=== PATIENT | female | born 1985 | race Two or more races ===

== ENCOUNTER → 2020-07-20 09:35 | Outpatient (BNVA) | payer OTHER, SELFPAY | PROVIDERS: PCP Internal Medicine; Visit Provider Anesthesiology | DX: M54.2 Cervicalgia (principal); M79.18 Myalgia, other site; M46.1 Sacroiliitis, not elsewhere classified | CPT/HCPCS: 99202 ==

== ENCOUNTER 2020-07-24 11:00 | Outpatient (RCR) | payer OTHER, SELFPAY ==
--- NOTE | 2020-06-21 13:41 | MHC.PT.EP ---
[facility] [place] Office [place] Office [place] Office [address] Agnes Muse [address] [phone] F: [phone] F: [phone] F: [phone] F: [phone] Physical Therapy Plan of Care Date of Evaluation: 06/21/20 Date of Surgery: N/A Diagnosis: lumbar degenerative disc disease Assessment: pt presents to physical therapy with pain, decreased range of motion, decreased strength, impaired functional mobility, impaired postural awareness, and gait deviations. pt is a good candidate for skilled PT due to age, potential remediation of impairments, typical disease/condition progression and prognosis, comorbidities, and motivation. pt would benefit from tailored strengthening and stretching exercise program, functional training, gait training, postural re-training, neuromuscular re-education, and modalities as needed for pain. Frequency and Duration: The patient will be seen 2x/wk for 4 wks Short Term Goals: pt will be I w/ HEP to promote self-management of condition. pt will demo proper sitting posture w/ lumbar roll to promote neutral spine. Car Porter Goals: pt will report <1/10 low back pain w/ standing for >30 minutes to facilitate return to PLOF. pt will report statistically significant improvement in self-reported outcome measure, Pallavi, to facilitate return to PLOF. Treatment Plan: Modalities to reduce pain, spasms and effusion. Manual therapy to restore motion and function. Therapeutic exercise to improve strength and flexibility. Neuromuscular re-education for posture and balance. Therapeutic activities to return to functional activities of daily living. Please sign and return to therapist. Thank you for your referral.
--- NOTE | 2020-07-24 11:43 | MHC.PT.DC ---
[facility] [place] Office [place] Office [place] Office [address] Agnes Muse [address] [phone] F: [phone] F: [phone] F: [phone] F: [phone] Physical Therapy Discharge Report Diagnosis: lumbar degenerative disc disease Date of Surgery: N/A Date of Evaluation: 06/21/20 Date of Discharge: 07/24/20 Treatments to Date: 9 Cancellations to Date: 2 No Shows to Date: 0 Discharge Status: Patient Elected to Stop Recommend MD Follow-up Discharge Summary: Despite several visits of the patient responding to repeated extensions she continues to return with level 6-7/10 pain localized to lumbar spine. She stated she has been compliant with her extensions but continues to have the pain return. I spoke with the patient and explained she has three more visits approved by insurance but she stated she wants to discharge to her home exercise program at this time. The session was spent reviewing her home exercise program. She was given an updated list of exercises to perform at home. She has the appropriate therabands to perform her exercises. The patient is discharged from this physical therapy plan of care. Electronically signed by: Dorene Robles PT, DPT Please sign and return to therapist. Thank you for your referral.
== END 2020-07-24 11:43 | disposition other institution (70) ==
LOC: HO.PT 11:00
PROVIDERS: PCP Internal Medicine; Visit Provider Internal Medicine
DX: M51.36 Other intervertebral disc degeneration, lumbar region (principal)
CPT/HCPCS: 97110; 97112; 97140; 97161

== ENCOUNTER 2020-09-28 13:54 | Outpatient (REF) | payer OTHER, SELFPAY ==
[2020-09-29 10:01] LABS: BV Int Neg Control Negative (Negative); BV Int Pos Control Positive (Positive)
[2020-09-29 20:02] LABS: C. trachomatis RNA TMA NOT DETECTED (NOT DETECTED); N. gonorrhoeae RNA TMA NOT DETECTED (NOT DETECTED)
== END 2020-09-28 13:55 | disposition home or self-care (01) ==
LOC: HO.LAB 13:54
PROVIDERS: PCP Family Medicine; Visit Provider Advanced Practice Midwife
DX: N76.0 Acute vaginitis (principal); R10.2 Pelvic and perineal pain; Z11.3 Encounter for screening for infections with a predominantly sexual mode of transmission; Z11.8 Encounter for screening for other infectious and parasitic diseases
CPT/HCPCS: 36415; 81003; 87480; 87491; 87510; 87591; 87660; 99212

== ENCOUNTER 2020-10-13 08:06 | Day surgery (SDC) | payer OTHER, SELFPAY ==
[2020-10-09 13:25] VITALS: BMI 31.1
--- NOTE | 2020-10-12 13:49 | P.CONAN_ITS ---
Documented by User: Kait Vargas 10/12/20 13:50 HPI - Anesthesia Eval Consult details Narrative: 35yo F Right Sacroiliac Joint Steroid Injection PMFSH Active Problems Active Problems: All Active Problems (Updated 09/28/20 @ 14:18 by Savi Prado) Acute vaginitis (Acute) Pelvic pain in female (Acute) Potential exposure to STD (Acute) Sacroiliitis (Acute) Myofascial pain syndrome, cervical (Acute) Cervicalgia (Acute) Past Medical History Medical History Cervicalgia Dyspepsia Myofascial pain syndrome, cervical Sacroiliitis Family History Family History Father Diabetes mellitus HTN (hypertension) Surgical History Surgical History History of 2 sections Hx of bilateral breast reduction surgery Hx of tubal ligation Social History Social History Smoking Status: Never smoker Use of substances other than those prescribed or required for medical reasons: No Have you been hit, kicked, punched, or otherwise hurt by someone within the past year? If so, by whom?: No Advance Directives: No Advance Directives Information Provided: No Advance Directives on File: No Recently lost weight without trying: No Meds Allergies Allergy/AdvReac Type Severity Reaction Status Date / Time No Known Allergies Allergy Verified 10/09/20 13:17 [No Known Allergies*] Home Medications Medication Instructions Recorded Confirmed Last Taken Type ibuprofen 600 mg PO Q8H PRN 10/09/20 10/09/20 Unknown History pantoprazole 1 tab PO DAILY 10/09/20 10/09/20 Unknown History Exam Exam Date and Time: October 12, 2020 1349 Height,Weight and Vital Signs: Height 5 ft 1 in Weight 74.843 kg Assessment and Plan Assessment Anesthesia Assessment: Chart Reviewed Documented by User: Mauricio Mcfarlane MD 10/13/20 09:34 [facility] Past Medical History Medical History Cervicalgia Dyspepsia Myofascial pain syndrome, cervical Sacroiliitis Family History Family History Father Diabetes mellitus HTN (hypertension) Surgical History Surgical History History of 2 sections Hx of bilateral breast reduction surgery Hx of tubal ligation Social History Social History Smoking Status: Never smoker Use of substances other than those prescribed or required for medical reasons: No Have you been hit, kicked, punched, or otherwise hurt by someone within the past year? If so, by whom?: No Advance Directives: No Advance Directives Information Provided: No Advance Directives on File: No Recently lost weight without trying: No Meds Allergies Allergy/AdvReac Type Severity Reaction Status Date / Time No Known Allergies Allergy Verified 10/09/20 13:17 [No Known Allergies*] Home Medications Medication Instructions Recorded Confirmed Last Taken Type ibuprofen 600 mg PO Q8H PRN 10/09/20 10/09/20 Unknown History pantoprazole 1 tab PO DAILY 10/09/20 10/09/20 Unknown History Exam Airway Mallampati Class: I TM Dist: >3cm Neck ROM: Full Denture: Upper and Lower Loose/Missing/Broken Teeth: No Heart: RRR Lungs: NL Assessment and Plan Assessment Anesthesia Assessment: Anesthesia Plan Discussed and Chart Reviewed Final Anesthetic Review NPO: Yes ASA Class: III Final Preanesthetic Review: No Changes in Pt Med Stat, Meds/Allgs Chart Reviewed, Consent Obtained/Reviewed and Anes Risks/Benef Reviewed Patient Risk: Intermediate Procedure Risk: Low Anesthetic Plan Anesthetic Plan: MAC: Disposition: Standard PACU
--- NOTE | ~2020-10-13 | FL_ITS ---
EXAMINATION: XR FLUOROSCOPY WITH IMAGES CLINICAL INFORMATION: Right sacroiliac joint injection COMPARISON: None. TECHNIQUE: Fluoroscopy performed by Dr. Hilario Monroy. Fluoroscopy time: 0.4 minutes DAP: 2 mGycm2 Images: 2 FINDINGS: Images demonstrate needle placement and contrast injection over the inferior right sacroiliac joint. FL/FL guidance in OR IMPRESSION: Fluoroscopic guidance for right sacroiliac joint injection.
[2020-10-13 09:13] VITALS: BP 105/65; PULSE 82; RESP 16; TEMP 36.9; O2SAT 98
--- NOTE | 2020-10-13 09:20 | MHC.SHP ---
Pre-Procedural Eval Section A The patient is an INPATIENT: No Changes since office visit: Yes Patient answered all questions The History & Physical has been completed within 30 days and I have reviewed it.: No Section B Chief Complaint: sacroiliitis Details of Present Illness: as above Relevant Family History (Specify if Yes): No Relevant Social History: None Present Medications: see Short Stay Collaborative assessment Medical History: No relevant PMH History of Previous Operations: No relevant previous surgery Allergies: Allergies Allergy/AdvReac Type Severity Reaction Status Date / Time No Known Allergies Allergy Verified 10/09/20 13:17 [No Known Allergies*] Review of Systems Sugical H&P ROS: Negative: Constitution, Cardiovascular, Respiratory, Neurological, Psychiatric, Hem-Onc, Allergic/Immunologic, Gastrointestinal, Genitourinary, Musculoskeletal, Integumentary, Endocrine and Eyes/Ears/Nose/Throat Exam Surgical H&P Exam: Normal: HEENT, Normal: Heart, Normal: Lungs, Normal: Extremities, Normal: Abdomen, Normal: Skin and Normal: Neurological Plan Diagnosis/Plan: Unchanged I have reviewed the history and physical and performed a pertinent physical examination on my patient. No changes have occurred unless specified.
[2020-10-13] MEDS: Lactated Ringers 1,000 ML 100 ML IVCONT (09:30)
[2020-10-13 10:12] VITALS: BP 108/63; PULSE 84; RESP 16; TEMP 36.6; O2SAT 100
--- NOTE | 2020-10-13 10:12 | PM.OP ---
Brief Operative Note Date of Service: 10/13/20 Pre-op diagnosis: sacroiliitis Post-op diagnosis: other (sacroiliac joint instability) Procedure: SI joint injection right Implants: none Surgeon: Hilario Monroy MD Anesthesia: MAC Estimated blood loss (mL): 0 Condition: stable Disposition: PACU
[2020-10-13 10:28] VITALS: BP 108/63; PULSE 84; RESP 16; TEMP 36.6; O2SAT 100
--- NOTE | 2020-10-18 13:28 | P.OP_ITS ---
Operative Note Operative Note Date of Service: 10/13/20 Narrative: Informed consent was explained thoroughly to the patient. All questions about benefits and risks for the procedure were answered. Patient came to the operating room she was positioned prone on the operating table with the pillow under her pelvis. [place] [employer] monitors were applied and patient was deeply sedated. Her lower back and buttocks was prepped with ChloraPrep prepped and draped with sterile towels. Sterilely draped C-arm was brought over the operating field and sq picture of patient's pelvis was demonstrated on the screen. For RIGHT joint tilting C-arm contralateral to the site of the joint and 15? to the foot of the patient the most posterior portion of the joints were clearly delineated on the screen. Skin was injected in the projection of the joint slightly medial to the location of the joint with 25 gauge 1/2 inch needle using local lidocaine 2% without epinephrine. After that 22 gauge 3 and 1/2 inch needle was driven to were each point of interest in tunnel vision fashion. When needle entered the joint capsule injection of the contrast was performed demonstrating intra-articular and minimally periarticular spread of the contrast. After that 4 cc. of bupivacaine 0.5% was injected into each joint. Upon completion of the injections the needles were removed and pressure were applied. Sterile dressing was applied. Upon completion of the injection patient was awaken, TAKEN outside of the operating room to the recovery room where she recovered uneventfully. She went home without immediate complications.
== END 2020-10-13 10:54 | disposition home or self-care (01) ==
PROVIDERS: PCP Family Medicine; Visit Provider Anesthesiology
PROC: 3E0U33Z Introduction of Anti-inflammatory into Joints, Percutaneous Approach (ICD-10-PCS; CPT 27096; principal; 2020-10-13 10:10)
DX: M46.1 Sacroiliitis, not elsewhere classified (principal)
CPT/HCPCS: 27096; J2250; J3010; J3300; Q9967

== ENCOUNTER → 2020-10-19 10:19 | Outpatient (BNVA) | payer OTHER, SELFPAY | PROVIDERS: PCP Family Medicine; Visit Provider Advanced Practice Midwife ==

== ENCOUNTER → 2020-11-16 09:22 | Outpatient (BNVA) | payer OTHER, SELFPAY | PROVIDERS: PCP Family Medicine; Visit Provider Anesthesiology | DX: M54.2 Cervicalgia (principal); M79.18 Myalgia, other site; M46.1 Sacroiliitis, not elsewhere classified; Z79.899 Other long term (current) drug therapy | CPT/HCPCS: 99212 ==

== ENCOUNTER 2021-07-31 09:25 | Outpatient (REF) | payer OTHER, SELFPAY ==
[2021-07-31 09:45] LABS: MANUAL DIFF FLAG NO
[2021-07-31 10:22] LABS: Basophils Percent Auto 0.5 % (0-2); Eosinophils Absolute Auto 0.1 X10*3/uL (0.0-0.4); Eosinophils Percent Auto 2.2 % (0-4); Hematocrit 36.5 % (37.0-47.0); Hemoglobin 11.8 g/dl (12.0-16.0); Imm Gran Abs Auto 0.01 X10*3/uL (0.00-0.03); Imm Gran Pct Auto 0.2 % (0.0-0.4); Lymphocytes Absolute Auto 1.4 X10*3/uL (1.2-4.9); Lymphocytes Percent Auto 33.2 % (20-40); Mean Corpuscular HGB Conc 32.3 g/dl (31.0-35.0); Mean Corpuscular Hemoglobin 27.6 pg (27.0-33.0); Mean Corpuscular Volume 85.3 fL (80.0-98.0); Mean Platelet Volume 11.2 fL (9.4-12.3); Monocytes Absolute Auto 0.4 X10*3/uL (0.1-1.2); Neutrophils Absolute Auto 2.3 x10*3/uL (2.0-8.3); Neutrophils Percent Auto 54.9 % (45-73); Platelet Count 268 X10*3/uL (160-400); Red Blood Count 4.28 X10*6/uL (4.20-5.50); White Blood Count 4.1 X10*3/uL (4.8-10.8)
[2021-07-31 10:48] LABS: Alanine Aminotransferase 14 U/L (0-31); Albumin Level 4.3 g/dL (3.5-5.0); Alkaline Phosphatase 47 U/L (39-117); Anion Gap 10 (12-20); Aspartate Amino Transferase 19 U/L (5-31); Bilirubin Total 0.4 mg/dL (0.0-1.0); Blood Urea Nitrogen 14 mg/dL (9-16); Calcium 9.2 mg/dL (8.4-10.2); Carbon Dioxide 25 mmol/L (22-29); Chloride 108 mmol/L (96-108); Cholesterol 142 mg/dL; Estimated Glomerular Filt Rate > 60; Glucose Fasting 89 mg/dL (60-99); HDL Cholesterol 44 mg/dL; LDL Cholesterol Calculated 84 mg/dl; Sodium 139 mmol/L (135-145); Total Protein 7.4 g/dL (6.5-8.0); Triglycerides 73 mg/dL
[2021-08-04 14:56] LABS: Vitamin D 25-OH, D2 <4 ng/mL; Vitamin D 25-OH, D3 12 ng/mL; Vitamin D 25-OH, Total 12 ng/mL (30-100)
== END 2021-07-31 09:26 | disposition home or self-care (01) ==
LOC: HO.LAB 09:25
PROVIDERS: PCP Internal Medicine; Visit Provider Internal Medicine
DX: E66.9 Obesity, unspecified (principal); E78.5 Hyperlipidemia, unspecified; D64.9 Anemia, unspecified; E55.9 Vitamin D deficiency, unspecified
CPT/HCPCS: 36415; 80053; 80061; 82306; 85025

== ENCOUNTER 2021-11-28 13:08 | Outpatient (REF) | payer OTHER, SELFPAY ==
[2021-11-29 06:31] LABS: CT PCR NOT DETECTED (Not Detect.); NG PCR NOT DETECTED (Not Detect.)
== END 2021-11-28 13:09 | disposition home or self-care (01) ==
LOC: HO.LAB 13:08
PROVIDERS: PCP Internal Medicine; Visit Provider Advanced Practice Midwife
DX: Z01.419 Encounter for gynecological examination (general) (routine) without abnormal findings (principal); Z20.2 Contact with and (suspected) exposure to infections with a predominantly sexual mode of transmission
CPT/HCPCS: 87491; 87591

== ENCOUNTER 2021-12-24 08:55 | Outpatient (REF) | payer OTHER, SELFPAY ==
[2021-12-24 09:11] LABS: MANUAL DIFF FLAG NO
[2021-12-24 09:47] LABS: Basophils Percent Auto 0.3 % (0-2); Eosinophils Absolute Auto 0.1 X10*3/uL (0.0-0.4); Eosinophils Percent Auto 1.8 % (0-4); Hematocrit 36.6 % (37.0-47.0); Hemoglobin 11.9 g/dl (12.0-16.0); Imm Gran Abs Auto 0.02 X10*3/uL (0.00-0.03); Imm Gran Pct Auto 0.3 % (0.0-0.4); Lymphocytes Absolute Auto 1.8 X10*3/uL (1.2-4.9); Lymphocytes Percent Auto 24.9 % (20-40); Mean Corpuscular HGB Conc 32.5 g/dl (31.0-35.0); Mean Corpuscular Hemoglobin 28.1 pg (27.0-33.0); Mean Corpuscular Volume 86.3 fL (80.0-98.0); Mean Platelet Volume 10.9 fL (9.4-12.3); Monocytes Absolute Auto 0.5 X10*3/uL (0.1-1.2); Monocytes Percent Auto 6.9 % (2-11); Neutrophils Absolute Auto 4.8 x10*3/uL (2.0-8.3); Neutrophils Percent Auto 65.8 % (45-73); Platelet Count 250 X10*3/uL (160-400); Red Blood Count 4.24 X10*6/uL (4.20-5.50); Red Cell Distribution Width 12.9 % (11.0-16.0); White Blood Count 7.2 X10*3/uL (4.8-10.8)
[2021-12-29 12:56] LABS: Vitamin D 25-OH, D2 26 ng/mL; Vitamin D 25-OH, D3 9 ng/mL; Vitamin D 25-OH, Total 35 ng/mL (30-100)
== END 2021-12-24 08:56 | disposition home or self-care (01) ==
LOC: HO.LAB 08:55
PROVIDERS: PCP Internal Medicine; Visit Provider Internal Medicine
DX: E55.9 Vitamin D deficiency, unspecified (principal); D64.9 Anemia, unspecified
CPT/HCPCS: 36415; 82306; 85025

== ENCOUNTER 2022-04-22 14:02 | Emergency (ER) | payer OTHER, SELFPAY ==
--- NOTE | ~2022-04-22 | XR_ITS ---
EXAMINATION: XR TOES, LEFT CLINICAL INFORMATION: Fall, first toe pain. COMPARISON: None TECHNIQUE: 3 views of the left toes were obtained. FINDINGS: There is a nondisplaced oblique fracture through the base of the distal phalanx great toe, seen at least on 2 images. No additional fracture seen. There is minimal soft tissue swelling. XR/XR toe LT min 2V IMPRESSION: Nondisplaced and a fracture base of distal phalanx great toe. No additional fracture seen. Mild soft tissue swelling great toe.
[2022-04-22 14:10] VITALS: BP 159/64; PULSE 79; RESP 18; TEMP 36.6; O2SAT 98; BMI 30.2
--- NOTE | 2022-04-22 16:33 | ED_ITS ---
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 Now pain with weight bearing. denies numbness, tingling, weakness of the extremity. Related Data Home Medications Medication Instructions Recorded Confirmed ibuprofen 600 mg tablet 600 mg PO Q8H PRN Pain 10/09/20 12/31/21 Previous Rx's Medication Instructions Recorded pantoprazole 40 mg tablet,delayed 40 mg PO DAILY 90 days #90 tabs 04/25/21 release meclizine 25 mg tablet 25 mg PO TID PRN motion sickness 7 11/08/21 days #21 tabs cholecalciferol (vitamin D3) 25 25 mcg PO DAILY 90 days #90 caps 12/31/21 mcg (1,000 unit) capsule erythromycin 5 mg/gram (0.5 %) eye 1 appl ophthalmic-Left DAILY 7 12/31/21 ointment days #3.5 grams Allergies Allergy/AdvReac Type Severity Reaction Status Date / Time No Known Allergies Allergy Verified 12/31/21 14:59 [No Known Allergies*] Review of Systems Review of Systems: Yes all other systems are reviewed and are negative Constitutional: Constitutional: Reports no additional constitutional complaints, Denies body ache(s), Denies chills, Denies fever(s), Denies headache(s) and Denies weakness Eyes: Eyes: Reports no additional eye complaints and Denies change in vision ENT: Reports system reviewed and no additional complaints, except as documented, Denies dizziness, Denies headache(s), Denies nasal congestion, Denies nasal discharge and Denies neck pain Cardiovascular: Cardiovascular: Reports no additional cardiovascular complaints, Denies chest pain, Denies leg edema and Denies dyspnea Respiratory: Respiratory: Reports no additional respiratory complaints, Denies cough and Denies dyspnea Gastrointestinal: Gastrointestinal: Reports no additional gastrointestinal complaints, Denies abdominal pain, Denies diarrhea, Denies nausea and Denies vomiting Genitourinary: Genitourinary: Reports no additional female genitourinary complaints and Denies urinary incontinence Musculoskeletal: Musculoskeletal: Reports no additional musculoskeletal complaints, Denies back pain, Reports arthralgias, Denies joint swelling, Denies neck pain, Denies numbness and Denies tingling Integumentary/Breasts: Skin/Breast: Reports system reviewed and no additional complaints, except as docu and Denies rash Neurologic: Reports system reviewed and no additional complaints, except as documented, Denies Abnormal speech present, Denies dizziness, Denies headache(s), Denies numbness, Denies tingling and Denies weakness PMFSH Past Medical History Attestation statement: The following information was validated with the patient. Source: old records reviewed and nursing notes reviewed Medical History BPPV (benign paroxysmal positional vertigo) Cervicalgia Dyspepsia GERD (gastroesophageal reflux disease) Hypovitaminosis D Leukopenia Moderate major depression, single episode Myofascial pain syndrome, cervical Obese Polyarthralgia Sacroiliitis Surgical History History of 2 sections Hx of bilateral breast reduction surgery Hx of tubal ligation Family History Family History Father Diabetes mellitus HTN (hypertension) Social History Social History Housing: Apartment Alcohol intake: former Patient Tobacco Use Status: Never used Tobacco e-Cigarette/Vaping Use: Never Used Second Hand Smoke Exposure: No Advance Directives: No Advance Directives Information Provided: Yes service: No Current occupational status: unemployed Cognitive needs: No Hearing needs: No Vision needs: No Physical Exam Vital Signs: Vital Signs: Last Vital Signs Temp 98 F 04/22/22 14:10 Pulse 79 04/22/22 14:10 Resp 18 04/22/22 14:10 BP 159/64 H 04/22/22 14:10 Pulse Ox 98 04/22/22 14:10 O2 Del Method 04/22/22 14:10 BMI result Body Mass Index 30.2 Const: General: cooperative, healthy appearing, comfortable and no acute distress Orientation/consciousness: patient oriented x3 Limitations: no limitations HEENT: Head: Yes normal to inspection Ears: hearing grossly normal bilaterally General nose exam: Normal external nose present Face and sinus: Yes normal facial exam Mouth: Normal oral and palatal mucosa present Throat: Yes posterior oropharynx normal Eyes: General: appearance normal, both eyes and all related structures Pupils: Equal, round and reactive pupils present Neck: Neck: Yes normal visual inspection Chest: Chest palpation & inspection: normal inspection of the chest Resp: Effort & Inspection: normal respiratory effort Auscultation: clear to auscultation bilaterally Cardio: Rate: regular rate Rhythm: regular rhythm Peripheral pulses: Peripheral pulses 2+ throughout GI: Inspection: Yes normal to inspection Palpation (GI): Soft to palpation and nontender Auscultation: normal bowel sounds Back/Spine/Pelvis: Thoracic/Lumbar Spine: thoracic and lumbar spine normal to inspection Skin: General skin exam: no rashes or lesions noted Neuro: General: patient oriented x3, no focal motor deficits and normal sensation to monofilament Cranial nerves: Yes Equal, round and reactive pupils present Cognition (Neuro): normal cognition Speech: No Abnormal speech present Gait exam (Neuro): Normal gait present Motor exam (neuro): 5/5 motor strength present throughout Extrem: Other: Tenderness/ecchymosis to the base of the left great toe with limited flexion/extension d/t pain. NV intact distally. General: Yes normal to inspection Course Course Course Narrative: x-rays show IMPRESSION: Nondisplaced and a fracture base of distal phalanx great toe. No additional fracture seen. ? Mild soft tissue swelling great toe. -Patient placed in orthopedic shoe and given crutches for home. Reviewed RICE. Reviewed worrisome signs.symptoms with patient and when to return to ED. Comfort able with plan for discharge home. MDM - Extremity Injury (Lower) MDM Narrative Medical decision making narrative: 37 yo female here with left great toe pain after mechanical fall Friday evening. WIll check x-rays. Medical Records Attestation: I reviewed the patient's medical records. Lab Data Attestation: I reviewed the patient's lab results. Imaging Data left toe xray: Attestation: I personally reviewed and interpreted this imaging study as follows: Radiologist's impression: [address] [address] XRay Report Signed Patient: Glen Russo MR#: [id number] : 1985 Acct:[id number] Age/Sex: 37 / F ADM Date: 04/22/22 Loc: HO.ED Attending Dr: Ordering Physician: Generic ED Physician Date of Service: 04/22/22 Procedure(s): XR toe LT min 2V Accession Number(s): [id number] cc: Generic ED Physician~ EXAMINATION: XR TOES, LEFT CLINICAL INFORMATION: Fall, first toe pain. COMPARISON: None TECHNIQUE: 3 views of the left toes were obtained. FINDINGS: There is a nondisplaced oblique fracture through the base of the distal phalanx great toe, seen at least on 2 images. No additional fracture seen. There is minimal soft tissue swelling. XR/XR toe LT min 2V IMPRESSION: Nondisplaced and a fracture base of distal phalanx great toe. No additional fracture seen. ? Mild soft tissue swelling great toe. Procedures Orthopedic Splinting/Casting Injury #1: Lower Extremity Immobilizer: post-op shoe Other Orthopedic Equipment: crutches Discharge Plan Discharge Clinical Impression: Fracture of toe of left foot Patient Disposition: Home, Self-Care Instructions: Toe Fracture (ED), Post Surgical Shoe (ED) Additional Instructions: Rest, ice, elevation of the extremity Motrin or tylenol for pain as needed Use the post-operative shoe and crutches for weight bearing. Prescriptions: No Action pantoprazole 40 mg tablet,delayed release (DR/EC) 40 mg PO DAILY 90 Days Qty: 90 3RF ibuprofen 600 mg Tablet 600 mg PO Q8H PRN (Reason: Pain) cholecalciferol (vitamin D3) 25 mcg (1,000 unit) capsule 25 mcg PO DAILY 90 Days Qty: 90 1RF erythromycin 5 mg/gram (0.5 %) ointment 1 appl ophthalmic-Left DAILY 7 Days Qty: 3.5 0RF meclizine 25 mg tablet 25 mg PO TID PRN (Reason: motion sickness) 7 Days Qty: 21 0RF Referrals: [facility] [place] [facility] [Provider Group] - 2 weeks Print Language: Tamazight
== END 2022-04-22 17:48 | disposition home or self-care (01) ==
PROVIDERS: Emergency Provider Emergency Medicine; PCP Internal Medicine
DX: S92.425A Nondisplaced fracture of distal phalanx of left great toe, initial encounter for closed fracture (principal); W10.9XXA Fall (on) (from) unspecified stairs and steps, initial encounter; Y93.9 Activity, unspecified; Y92.9 Unspecified place or not applicable; Y99.9 Unspecified external cause status
CPT/HCPCS: 73660; 99283

== ENCOUNTER → 2022-05-03 10:44 | Outpatient (BNVA) | payer OTHER, SELFPAY | PROVIDERS: PCP Internal Medicine; Visit Provider Physician Assistant | DX: S92.402A Displaced unspecified fracture of left great toe, initial encounter for closed fracture (principal) | CPT/HCPCS: 99202 ==

== ENCOUNTER 2022-11-07 07:51 | Outpatient (REF) | payer OTHER, SELFPAY ==
[2022-11-07 09:14] LABS: Alanine Aminotransferase 19 U/L (0-31); Albumin Level 4.1 g/dL (3.5-5.0); Alkaline Phosphatase 53 U/L (39-117); Anion Gap 12 (12-20); Aspartate Amino Transferase 23 U/L (5-31); Bilirubin Total 0.3 mg/dL (0.0-1.0); Blood Urea Nitrogen 14 mg/dL (9-16); Calcium 8.8 mg/dL (8.4-10.2); Carbon Dioxide 22 mmol/L (22-29); Chloride 109 mmol/L (96-108); Cholesterol 128 mg/dL; Estimated Glomerular Filt Rate > 60; Glucose Fasting 108 mg/dL (60-99); HDL Cholesterol 36 mg/dL; LDL Cholesterol Calculated 73 mg/dl; Sodium 139 mmol/L (135-145); Total Protein 7.3 g/dL (6.5-8.0); Triglycerides 99 mg/dL
[2022-11-07 09:27] LABS: Vitamin D 25-OH Total 21.3 ng/mL (>30)
== END 2022-11-07 07:52 | disposition home or self-care (01) ==
LOC: HO.LAB 07:51
PROVIDERS: PCP Internal Medicine; Visit Provider Internal Medicine
DX: Z00.00 Encounter for general adult medical examination without abnormal findings (principal); E55.9 Vitamin D deficiency, unspecified
CPT/HCPCS: 36415; 80053; 80061; 82306

== ENCOUNTER 2022-11-13 11:30 | Outpatient (REF) | payer OTHER, SELFPAY ==
--- NOTE | ~2022-11-13 | XR_ITS ---
EXAMINATION: Bilateral knee. CLINICAL INDICATION: Pain. COMPARISON: None. TECHNIQUE: 2 views each knee. RIGHT KNEE: There is loss of medial compartment joint space right knee. No bony erosive changes or loose body seen. Suprapatellar joint effusion seen. LEFT KNEE: There is mild loss of medial compartment joint space. No loose bodies or bony erosive changes. No fracture, dislocation or suprapatellar joint effusion. XR/XR knee LT 2V IMPRESSION: Unremarkable bilateral knee exam.
--- NOTE | ~2022-11-13 | XR_ITS ---
EXAMINATION: Bilateral knee. CLINICAL INDICATION: Pain. COMPARISON: None. TECHNIQUE: 2 views each knee. RIGHT KNEE: There is loss of medial compartment joint space right knee. No bony erosive changes or loose body seen. Suprapatellar joint effusion seen. LEFT KNEE: There is mild loss of medial compartment joint space. No loose bodies or bony erosive changes. No fracture, dislocation or suprapatellar joint effusion. XR/XR knee RT 2V IMPRESSION: Unremarkable bilateral knee exam.
== END 2022-11-13 11:31 | disposition home or self-care (01) ==
LOC: HO.XRAY 11:30
PROVIDERS: PCP Student in an Organized Health Care Education/Training Program; Visit Provider Student in an Organized Health Care Education/Training Program
DX: M25.561 Pain in right knee (principal); M25.562 Pain in left knee
CPT/HCPCS: 73560

== ENCOUNTER 2022-12-05 13:15 | Emergency (ER) | payer OTHER, SELFPAY ==
[2022-12-05 14:49] VITALS: BP 121/79; PULSE 86; RESP 18; TEMP 36.9; O2SAT 100; BMI 30.9
--- NOTE | 2022-12-05 14:49 | ED.BACK ---
HPI - Back Pain/Injury General Chief Complaint: Back Pain/Injury Stated Complaint: lower back pain Time Seen by Provider: 12/05/22 14:53 Source: patient Mode of arrival: ambulatory Limitations: no limitations History of Present Illness HPI Narrative: 37 yo Yemeni speaking female presents to the ER for evaluation of low back pain for the last 2 days. Pain is middle of the lower back, radiates across the low back, not into the buttocks or legs. no urinary or bowel issues. no trauma. worse with movement and walking. has been taking tylenol and flexeril with no real improvements. MD elicited complaint: back pain Pertinent past history: prior back pain Onset (ago): day(s) (2) Timing: constant Severity: severe Similar Symptoms Previously: Yes Quality: aching and spasming Location: lumbar spine, right lower back and left lower back Radiation: none Exacerbating factors: movement and walking Relieving factors: none Context: unknown Associated symptoms: denies other symptoms Treatments prior to arrival: acetaminophen Work related injury: No Related Data Home Medications Medication Instructions Recorded Confirmed ibuprofen 600 mg tablet 600 mg PO Q8H PRN Pain 10/09/20 11/13/22 Previous Rx's Medication Instructions Recorded pantoprazole 40 mg tablet,delayed 40 mg PO DAILY 90 days #90 tabs 07/04/22 release cholecalciferol (vitamin D3) 25 25 mcg PO DAILY 90 days #90 caps 11/13/22 mcg (1,000 unit) capsule ibuprofen 600 mg tablet 600 mg PO Q8H PRN pain #14 tabs 12/05/22 lidocaine 5 % topical patch 1 patch topical DAILY #15 ea 12/05/22 tizanidine 4 mg capsule 4 mg PO Q8H PRN muscle spasticity 12/05/22 #10 caps Allergies Allergy/AdvReac Type Severity Reaction Status Date / Time No Known Allergies Allergy Verified 11/13/22 11:15 [No Known Allergies*] Review of Systems Review of Systems: Yes all other systems are reviewed and are negative PMFSH Past Medical History Medical History BPPV (benign paroxysmal positional vertigo) Cervicalgia Dyspepsia GERD (gastroesophageal reflux disease) Hypovitaminosis D Leukopenia Moderate major depression, single episode Myofascial pain syndrome, cervical Obese Polyarthralgia Sacroiliitis Surgical History History of 2 sections Hx of bilateral breast reduction surgery Hx of tubal ligation Family History Family History Father Diabetes mellitus HTN (hypertension) Social History Social History Housing: Apartment Alcohol intake: former Patient Tobacco Use Status: Never used Tobacco e-Cigarette/Vaping Use: Never Used Second Hand Smoke Exposure: No Advance Directives: No service: No Current occupational status: unemployed Current occupation: right hand Cognitive needs: No Hearing needs: No Vision needs: No Physical Exam Vital Signs: Vital Signs: Last Vital Signs Temp 98.5 F 12/05/22 14:49 Pulse 86 12/05/22 14:49 Resp 18 12/05/22 14:49 BP 121/79 12/05/22 14:49 Pulse Ox 100 12/05/22 14:49 O2 Del Method Room Air 12/05/22 14:49 BMI result Body Mass Index 30.9 Appearance: Alert. Oriented X3. No acute distress. HEENT: normal inspection CVS: Normal heart rate and rhythm. Pulses normal. Respiratory: No respiratory distress. Skin: Skin warm and dry. Normal skin color. Normal skin turgor. No rashes. Back: normal inspection, soft tissue tenderness of the lumbar area, palpable spasm. limited flexion of the spine due to pain Extremities: normal inspection x4, normal ROM x4 Neuro: Oriented X 3. No motor deficit. No sensory deficit. steady gait. normal DTRs Medical Decision Making Medical Decision Making MDM Narrative: 37-year-old presenting with nontraumatic low back pain for the last 2 days. No red flag symptoms of low back pain. Most likely muscle strain and spasm. Will treat accordingly. She was encouraged follow-up with her primary care doctor for ongoing management. Stable for discharge. Differential Diagnosis Differential Diagnoses: The differential diagnosis associated with the presentation includes Inflammatory disorders, malignancy, trauma, osteoporosis, nerve root compression, radiculopathy, plexopathy, degenerative disc disease, disc herniation, spinal stenosis, sacroiliac joint dysfunction, facet joint injury, and less likely infection?like abscess or diskitis External Record Review External record reviewed: Prior outpatient labs and Prior outpatient radiology Prescription Management I considered prescription management with: Pain Medication and Other (muscle relaxer) Critical Care Time Critical Care Time Critical Care Time: No Discharge Plan Discharge Clinical Impression: Lumbar strain Patient Disposition: Home, Self-Care Instructions: Low Back Strain (ED), Lower Back Exercises (ED) Additional Instructions: Your pain is most likely due to muscle strain and spasm. No bending, lifting or twisting. Use ice several times per day for 20 minutes at a time for the next 48 hours and then change to heat. Take medications as prescribed to help with pain and discomfort. Follow up with your Primary Care Doctor this week. If your pain worsens, if you develop new numbness, tingling, weakness, loss of function or incontinence call 911 or come back to the ER right away for evaluation. Lo m?s probable es que shine dolor se deba a tensi?n y espasmos musculares. Sin doblar, levantar o torcer. Use hielo varias veces al d?a alden 20 minutos a la vez alden las pr?ximas 48 horas y luego cambie a calor. [place] los medicamentos seg?n lo prescrito para ayudar con el dolor y la incomodidad. Ruth un seguimiento con shine m?dico de atenci?n primaria esta semana. Si shine dolor empeora, si desarrolla un nuevo entumecimiento, hormigueo, debilidad, p?rdida de funci?n o incontinencia, llame al 911 o regrese a la araceli de emergencias de inmediato para kyle evaluaci?n. Prescriptions: New ibuprofen 600 mg tablet 600 mg PO Q8H PRN (Reason: pain) Qty: 14 0RF lidocaine 5 % adhesive patch,medicated 1 patch topical DAILY Qty: 15 0RF Rx Instructions: leave on most painful area for up to 12 hrs tizanidine 4 mg capsule 4 mg PO Q8H PRN (Reason: muscle spasticity) Qty: 10 0RF No Action ibuprofen 600 mg Tablet 600 mg PO Q8H PRN (Reason: Pain) pantoprazole 40 mg tablet,delayed release (DR/EC) 40 mg PO DAILY 90 Days Qty: 90 3RF cholecalciferol (vitamin D3) 25 mcg (1,000 unit) capsule 25 mcg PO DAILY 90 Days Qty: 90 1RF Referrals: Kristina Martínez MD [Primary Care Provider] - Stand Alone Forms: Work/School Release Interventions: ED Discharge Assessment Last Done: 12/05/22 15:03 Discharge Date/Time: 12/05/22 15:03 Print Language: Yemeni
== END 2022-12-05 15:03 | disposition home or self-care (01) ==
PROVIDERS: Emergency Provider Student in an Organized Health Care Education/Training Program; PCP Internal Medicine
DX: S39.012A Strain of muscle, fascia and tendon of lower back, initial encounter (principal); X58.XXXA Exposure to other specified factors, initial encounter; Y93.9 Activity, unspecified; Y92.9 Unspecified place or not applicable; Y99.9 Unspecified external cause status
CPT/HCPCS: 99282; 99283

== ENCOUNTER → 2023-01-08 14:29 | Outpatient (BNVA) | payer OTHER, SELFPAY | PROVIDERS: PCP Internal Medicine; Visit Provider Advanced Practice Midwife ==

== ENCOUNTER 2023-07-04 09:34 | Outpatient (AMB) | payer OTHER, SELFPAY ==
--- NOTE | 2023-07-04 09:49 | AM.OFFWIN_ITS ---
Intake Vital Signs 07/04/23 10:25 Height 5 ft 1 in Weight 186 lb 8 oz BMI 35.2 BP 106/70 Blood Pressure Location Lt brachial Position Sitting Pulse 85 Pulse Source Pulse Oximeter Temp 97.6 F Temp Source Temporal Artery Scan Pulse Oximetry (%) 98 Intake Visit Reasons: EP, Upper back and neck pain Intake Note: pt is here for c/o upper back and neck pain Patient Tobacco Use Status: Never used Tobacco Allergies No Known Allergies [No Known Allergies*] Allergy (Verified 07/04/23 10:25) Medication List - Last Reconciled 07/04/23 by BRITTNEE Rowan cholecalciferol (vitamin D3) 25 mcg PO DAILY 90 days ibuprofen 600 mg PO Q8H PRN lidocaine 5% 1 patch topical DAILY pantoprazole 40 mg PO DAILY 90 days Do you need a note to return to daycare/school/sports/work: Yes HPI HPI Comments History of Present Illness Details 38-year-old female in today for sick vis it. Patient presents today with a sore neck x1 day. Patient states that she woke up 1 day prior to appointment, she felt tightness and soreness in her neck, with pain when she tries to move it. The pain has progressively got worse since yesterday. Today she has limited range of motion with flexion, extension, and rotation. Pain is in the paraspinal, cervical, region. Patient has not taken any medication to alleviate the symptom. No tingling numbness, numbness, or trauma to the area. No headache, change in vision, or dizziness. [facility] Medical History (Updated 07/04/23 @ 10:50 by BRITTNEE Rowan) Torticollis BPPV (benign paroxysmal positional vertigo) Leukopenia GERD (gastroesophageal reflux disease) Hypovitaminosis D Obese Polyarthralgia Moderate major depression, single episode Dyspepsia Sacroiliitis Myofascial pain syndrome, cervical Cervicalgia Surgical History Hx of bilateral breast reduction surgery Hx of tubal ligation History of 2 sections Family History Father Diabetes mellitus HTN (hypertension) Social History Housing: Apartment Alcohol intake: former Patient Tobacco Use Status: Never used Tobacco e-Cigarette/Vaping Use: Never Used Second Hand Smoke Exposure: No service: No Current occupational status: unemployed Current occupation: right hand Sexual orientation: Straight/Heterosexual Gender identity: Female Cognitive needs: No Hearing needs: No Vision needs: No Female Reproductive History Menstrual Age of Menarche: 14 Review of Systems Const Details: Constitutional : No Weight loss, No Fever, No Chills, No Fatigue. ENT/Mouth : No sore throat, No Rhinorrhea Cardiovascular : No Chest Pain, No SOB, No Dyspnea on Exertion, No Orthopnea, No Edema, No Palpitations Respiratory : No Cough, No Sputum, No Wheezing Musculoskeletal : Admits cervical muscle pain. Skin : No Skin Lesions, No rash, no bruising, no erythema Neuro : No Weakness, No Numbness, No Dizziness, No Headache, no dizziness. Heme/Lymph: No Bruising, No Bleeding,No Lymphadenopathy All other systems reviewed and are negative All systems reviewed & are unremarkable except as noted in HPI and below Physical Exam Vital Signs: Last Vital Signs Temp 97.6 F 07/04/23 10:25 Pulse 85 07/04/23 10:25 BP 106/70 07/04/23 10:25 Pulse Ox 98 07/04/23 10:25 BMI result Body Mass Index 35.2 Vital signs reviewed and stable Appearance: Alert.? Oriented X3.? No acute distress.? Head: Normocephalic, atraumatic, no step-offs or deformities ENT: Pharynx normal.? Neck: Normal inspection.? Neck supple. No lymphadenopathy. ? CVS: Normal heart rate and rhythm.? Pulses normal.? Respiratory: No respiratory distress.? Breath sounds normal.? Skin: Skin warm and dry.? Normal skin color.? No erythema or bruising. ? Extremities: No lower extremity edema.? No calf ttp. 5/5 strength to bilateral upper and lower extremities Back: No point tenderness to spine, No obvious deformities, pain to cervical para-spinal muscles. Limited range of motion with rotation, flexion, and extension of her neck. Neuro: Oriented X 3.? No motor deficit.? No sensory deficit. CN 2-12 intact. No numbness. Assessment & Plan Assessment & Plan (1) Torticollis: Code(s): M43.6 - Torticollis Plan Patient given 30 mg ketorolac IM injection in office. Patient will also be prescribed p.o. ketorolac to be taken over the next 5 days, along with cyclobenzaprine 10 mg p.o. to be taken at night as needed. Patient will also be given Lidoderm patches to be placed on painful area to be kept on for up to 12 hours. Patient is unlikely to have meningococcal process. Patient educated not to take any NSAID, or drink alcohol with these medication. Patient educated on worsening signs and symptoms when to return to the walk-in clinic or present to the emergency room. Orders: Orders AMB Ketorolac Injection Today M43.6 - Torticollis Medications: New ketorolac 30 mg IM ONCE 1 mL 0RF M43.6 - Torticollis lidocaine 5% (Lidoderm) leave on most painful area for up to 12 hrs 1 patch topical DAILY 15 ea 0RF cyclobenzaprine 10 mg PO BEDTIME PRN 10 tabs 0RF muscle spasm ketorolac 10 mg PO Q8H 5 days PRN 15 tabs 0RF pain M43.6 - Torticollis Patient Instructions: Toradol has been sent to your pharmacy, you tolerated this well in the department. Please take this as prescribed do not take this with ibuprofen, or other NSAIDs, do not mix this with alcohol. Side effects of this medication including increased risk for bleeding and possible kidney injury. Coding Level of Care Code Est Pt Level 3 (54651) Diagnoses Torticollis M43.6 Time Spent (min) 20
[2023-07-04 10:25] VITALS: BP 106/70; PULSE 85; TEMP 36.4; O2SAT 98; BMI 35.2
== END 2023-07-04 11:30 | disposition home or self-care (01) ==
PROVIDERS: PCP Internal Medicine; Visit Provider Nurse Practitioner Primary Care
DX: M43.6 Torticollis (principal)
CPT/HCPCS: 96372; 99213; J1885

== ENCOUNTER 2023-07-17 09:27 | Outpatient (AMB) | payer OTHER, SELFPAY ==
[2023-07-17 09:30] VITALS: BP 112/80; PULSE 98; O2SAT 93; BMI 34.4
--- NOTE | 2023-07-17 09:30 | MHC.PC.OV ---
Vital Signs 07/17/23 09:30 Height 5 ft 1 in Weight 182 lb BMI 34.4 BP 112/80 Blood Pressure Location Lt brachial Position Sitting Pulse 98 Pulse Source Pulse Oximeter Pulse Oximetry (%) 93 Oxygen Delivery Method Room Air Intake Visit Reasons: Annual Exam Intake Note: Patient here for an annual physical exam Edge [employer]ppers Required: No Accompanied by: Self / Same As Patient Allergies No Known Allergies [No Known Allergies*] Allergy (Verified 07/17/23 09:55) Medication List - Last Reconciled 07/17/23 by Kristina Butler MD cyclobenzaprine 10 mg PO BEDTIME PRN ibuprofen 600 mg PO Q8H PRN ketorolac 10 mg PO Q8H PRN 5 days lidocaine 5% (Lidoderm) 1 patch topical DAILY pantoprazole 40 mg PO DAILY 90 days Tobacco use date assessed: 11/13/22 Dental Screening Dental Screen Date: 07/17/23 Did you have a dental visit in the last 12 months?: No Did you have a dental problem in the last 6 months where you did not have access to dental care?: No Was dental information given to patient?: Patient has dentist HPI HPI Comments History of Present Illness Details This is a 38-year-old female that comes for her physical exam. Last Pap smear was 2019 and was normal. No chest pain or shortness of breath. Has pre diabetes and fasting blood glucose will be repeated. No weight loss. Some polyuria and polydipsia. [facility] Medical History Torticollis BPPV (benign paroxysmal positional vertigo) Leukopenia GERD (gastroesophageal reflux disease) Hypovitaminosis D Obese Polyarthralgia Moderate major depression, single episode Dyspepsia Sacroiliitis Myofascial pain syndrome, cervical Cervicalgia Surgical History Hx of bilateral breast reduction surgery Hx of tubal ligation History of 2 sections Family History (Updated 07/17/23 @ 09:58 by Kristina Butlre MD) Father Diabetes mellitus HTN (hypertension) Mother No problems noted. Social History Housing: Apartment Alcohol intake: former Patient Tobacco Use Status: Never used Tobacco e-Cigarette/Vaping Use: Never Used Second Hand Smoke Exposure: No service: No Current occupational status: employed Current occupation: right hand Current occupational exposures/hazards: No Sexual orientation: Straight/Heterosexual Gender identity: Female Cognitive needs: No Hearing needs: No Vision needs: No Female Reproductive History Menstrual Age of Menarche: 14 Questionnaire Thrive Questionnaire Date Thrive assessed: 11/13/22 JAMES-7 AMB Questionnaire JAMES-7 Date JAMES - 7 assessed: 11/13/22 Source: Developed by Drs. Venu Carrion, Naheed Guzman, Aram Jolley and colleagues, with an educational adam from [employer]. Review of Systems Const All systems reviewed & are unremarkable except as noted in HPI and below Eyes Reports no additional complaints, Denies change in vision and Denies other visual disturbances Card Denies chest pain at rest, Denies chest pain with activity, Denies edema, Denies irregular heart rhythm, Denies claudication, Denies dyspnea, Denies dyspnea on exertion, Denies orthopnea, Denies paroxysmal nocturnal dyspnea and Denies slow heart rate Resp Denies cough, Denies dyspnea and Denies dyspnea on exertion GI Denies abdominal pain, Denies change in bowel habits, Denies excessive flatus, Denies nausea and Denies vomiting Denies urinary incontinence, Denies urinary hesitancy and Denies urinary urgency Musc Denies abnormal gait, Denies atrophy, Denies deformity and Denies limited range of motion Skin/Breast Denies bleeding lesions, Denies changing lesions and Denies rash Neuro Denies abnormal gait and Denies lack of coordination Physical exam (Primary Care) Vital Signs: Last Vital Signs Pulse 98 07/17/23 09:30 BP 112/80 07/17/23 09:30 Pulse Ox 93 07/17/23 09:30 Oxygen Delivery Method Room Air 07/17/23 09:30 BMI result Body Mass Index 34.4 Tobacco/Smoking Status: Tobacco use Status Tobacco use date assessed 11/13/22 07/17/23 09:35 Patient Tobacco Use Status Never used Tobacco 07/17/23 09:35 e-Cigarette/Vaping Use Never Used 07/17/23 09:35 Thrive Assessment: Date of Thrive Assessment Date Thrive assessed 11/13/22 07/17/23 09:35 Const Orientation/consciousness: patient oriented x3 HENMT Head: Yes normal to inspection, Yes normocephalic and Yes atraumatic Ears: external ears normal Eyes General: appearance normal, both eyes and all related structures Eyelids: Yes eyelids normal Conjunctivae: conjunctivae normal Neck Neck: Yes normal visual inspection and Yes supple Resp Effort & Inspection: normal respiratory effort Auscultation: clear to auscultation bilaterally Cardio Jugular venous distension: no JVD Rate: regular rate Rhythm: regular rhythm Heart sounds: S1 normal heart sound present and S2 normal heart sound present GI Inspection: Yes normal to inspection Palpation (GI): Soft to palpation and nontender Auscultation: normal bowel sounds Skin General skin exam: no rashes or lesions noted Neuro General: patient oriented x3 and no focal motor deficits Extrem General: Yes full ROM Psych Appearance: grossly normal Office Procedures Flu Questionnaire Does the patient have a severe egg allergy?: No Immunizations flu vacc [id number] 6mos up(PF) 60 mcg(15 mcgx4)/0.5 mL IM syringe Performing Provider: Kristina Butler MD [facility] Documented (not given) by: BIANCA Kingsley on 07/17/23 09:36 Reason Not Given: Patient Refused Assessment and Plan Assessment & Plan (1) Physical exam: Code(s): Z00.00 - Encounter for general adult medical examination without abnormal findings Plan: Repeat in a year. Orders: Orders Complete Blood Count Auto Diff Today D64.9 - Anemia, unspecified IRON PROFILE Today D64.9 - Anemia, unspecified Influenza [id number] Immunization Today Z23 - Encounter for immunization Vitamin D 25-OH Total Today E55.9 - Vitamin D deficiency, unspecified Comprehensive [place]. Panel Fast Today Z00.00 - Encounter for general adult medical examination without abnormal findings Coding Level of Care Code Est Pt Prev Care 18-39y(40270) Diagnoses Physical exam Z00.00 Time Spent (min) 31
== END 2023-07-17 10:03 | disposition home or self-care (01) ==
PROVIDERS: Visit Provider Internal Medicine
DX: Z00.00 Encounter for general adult medical examination without abnormal findings (principal)
CPT/HCPCS: 99395

== ENCOUNTER 2023-07-22 08:37 | Outpatient (REF) | payer OTHER, SELFPAY ==
[2023-07-22 09:05] LABS: MANUAL DIFF FLAG NO
[2023-07-22 09:35] LABS: Basophils Percent Auto 0.4 % (0-2); Eosinophils Absolute Auto 0.1 X10*3/uL (0.0-0.4); Eosinophils Percent Auto 1.3 % (0-4); Hematocrit 36.7 % (37.0-47.0); Hemoglobin 11.9 g/dl (12.0-16.0); Imm Gran Abs Auto 0.02 X10*3/uL (0.00-0.03); Imm Gran Pct Auto 0.4 % (0.0-0.4); Lymphocytes Absolute Auto 1.6 X10*3/uL (1.2-4.9); Lymphocytes Percent Auto 35.7 % (20-40); Mean Corpuscular HGB Conc 32.4 g/dl (31.0-35.0); Mean Corpuscular Hemoglobin 27.7 pg (27.0-33.0); Mean Corpuscular Volume 85.3 fL (80.0-98.0); Mean Platelet Volume 11.5 fL (9.4-12.3); Monocytes Absolute Auto 0.4 X10*3/uL (0.1-1.2); Monocytes Percent Auto 8.3 % (2-11); Neutrophils Absolute Auto 2.4 x10*3/uL (2.0-8.3); Neutrophils Percent Auto 53.9 % (45-73); Platelet Count 250 X10*3/uL (160-400); Red Cell Distribution Width 12.8 % (11.0-16.0); White Blood Count 4.5 X10*3/uL (4.8-10.8)
[2023-07-22 10:08] LABS: Alanine Aminotransferase 19 U/L (0-31); Albumin Level 4.4 g/dL (3.5-5.0); Alkaline Phosphatase 49 U/L (39-117); Anion Gap 11 (12-20); Aspartate Amino Transferase 21 U/L (5-31); Bilirubin Total 0.5 mg/dL (0.0-1.0); Blood Urea Nitrogen 12 mg/dL (9-16); Carbon Dioxide 24 mmol/L (22-29); Chloride 108 mmol/L (96-108); Cholesterol 120 mg/dL (<200); Estimated Glomerular Filt Rate > 60; Glucose Fasting 90 mg/dL (60-99); HDL Cholesterol 47 mg/dL (>40); Iron 75 mcg/dL (30-160); LDL Cholesterol Calculated 66 mg/dL (<100); Percent Iron Saturation 34 % (15-50); Potassium 3.7 mmol/L (3.3-5.1); Sodium 139 mmol/L (135-145); Total Iron Binding Capacity 221 mcg/dL (228-428); Total Protein 7.6 g/dL (6.5-8.0); Triglycerides 39 mg/dL (<150); Unsaturated Iron Binding 146 ug/dL
[2023-07-22 10:26] LABS: Vitamin D 25-OH Total 22.2 ng/mL (>30)
== END 2023-07-22 08:38 | disposition home or self-care (01) ==
LOC: HO.LAB 08:37
PROVIDERS: PCP Internal Medicine; Visit Provider Internal Medicine
DX: Z00.00 Encounter for general adult medical examination without abnormal findings (principal); D64.9 Anemia, unspecified; E55.9 Vitamin D deficiency, unspecified; E78.5 Hyperlipidemia, unspecified; R73.02 Impaired glucose tolerance (oral)
CPT/HCPCS: 36415; 80053; 80061; 82306; 83540; 85025

== ENCOUNTER 2023-08-06 14:54 | Emergency (ER) | payer OTHER, SELFPAY ==
[2023-08-06 16:46] VITALS: BP 129/80; PULSE 85; RESP 18; TEMP 36.4; O2SAT 100; BMI 33.8
--- NOTE | 2023-08-06 16:50 | ED_ITS ---
HPI - Syncope General Chief Complaint: Abdominal Pain Stated Complaint: UPPER ABD PAIN,DIZZY,SYNCOPE,VOMIT,PER EMS Time Seen by Provider: 08/06/23 22:33 Source: patient Mode of arrival: EMS Limitations: no limitations History of Present Illness HPI narrative: Patient otherwise healthy was at work noticed abdominal cramps , co-worker assisted to a chair and she passed out. When she woke up started vomiting, at this time she feeling much better back to normal no fever no chills no diarrhea no significant abdominal pain no palpitation no headache Related Data Previous Rx's Medication Instructions Recorded pantoprazole 40 mg tablet,delayed 40 mg PO DAILY 90 days #90 tabs 07/04/22 release ibuprofen 600 mg tablet 600 mg PO Q8H PRN pain #14 tabs 12/05/22 cyclobenzaprine 10 mg tablet 10 mg PO BEDTIME PRN muscle spasm 07/04/23 #10 tabs ketorolac 10 mg tablet 10 mg PO Q8H PRN pain 5 days #15 07/04/23 tabs lidocaine 5 % topical patch 1 patch topical DAILY #15 ea 07/04/23 (Lidoderm) cholecalciferol (vitamin D3) 25 25 mcg PO DAILY 90 days #90 caps 07/25/23 mcg (1,000 unit) capsule ondansetron 4 mg disintegrating 4 mg PO Q6-8H PRN nausea and 08/07/23 tablet vomiting #7 tabs Allergies Allergy/AdvReac Type Severity Reaction Status Date / Time No Known Allergies Allergy Verified 08/06/23 16:52 [No Known Allergies*] Review of Systems 2 Review of Systems: Yes all other systems are reviewed and are negative [facility] Past Medical History Medical History Torticollis BPPV (benign paroxysmal positional vertigo) Leukopenia GERD (gastroesophageal reflux disease) Hypovitaminosis D Obese Polyarthralgia Moderate major depression, single episode Dyspepsia Sacroiliitis Myofascial pain syndrome, cervical Cervicalgia Surgical History Hx of bilateral breast reduction surgery Hx of tubal ligation History of 2 sections Family History Family History Father Diabetes mellitus HTN (hypertension) Mother No problems noted. Social History Social History Housing: Apartment Alcohol intake: former Patient Tobacco Use Status: Never used Tobacco e-Cigarette/Vaping Use: Never Used Second Hand Smoke Exposure: No Advance Directives: No Advance Directives Information Provided: No service: No Current occupational status: employed Current occupation: right hand Current occupational exposures/hazards: No Sexual orientation: Straight/Heterosexual Gender identity: Female Cognitive needs: No Hearing needs: No Vision needs: No Physical Exam 2 Vital Signs: Vital Signs: Last Vital Signs Temp 97.2 F 08/06/23 23:48 Pulse 64 08/06/23 23:48 Resp 16 08/06/23 23:48 BP 109/62 08/06/23 23:48 Pulse Ox 98 08/06/23 23:48 O2 Del Method Room Air 08/06/23 23:48 BMI result Body Mass Index 33.8 Appearance: Alert. Oriented X3. No acute distress. Eyes: PERRLA, No Nystagmus ENT: Pharynx normal. Oral Mucosa moist Neck: Normal inspection. Neck supple. CVS: Normal heart rate and rhythm. Pulses normal. Respiratory: No respiratory distress. Equal air entry bilateral, no wheezing/rales/rhonchi Abdomen: Soft and nontender. Bowel sounds are present, no mass palpable, no CVA tenderness Skin: Skin warm and dry. Normal skin color. Normal skin turgor. Extremities: No lower extremity edema. No calf tenderness Neuro: Oriented X 3. No motor deficit. No sensory deficit.No cerebellar signs , cranial nerves II-XII intact Course Course Course Narrative: This is an RME: Additional HPI, ROS, PE not included below will be deferred to primary provider. This is a [id number], with no known medical problems, presenting to the emergency department with a complaint of episodic abdominal pain (which has since resolved), vomiting, and syncopal episode. She was at work, felt hot and heavy in her head, coworkers were next to her and eased her to a chair. Did not fall down or hit her head. [place] well prior to the syncopal episode. Plan: Labs, EKG, UA Medical Decision Making Medical Decision Making MDM Narrative: Patient likely vasovagal syncope lab workup is negative discharge patient home patient feeling much better at this time, vitals are stable Differential Diagnosis Differential Diagnoses: The differential diagnosis associated with the presentation includes Admission/Observation Consideration of admission/observation: Escalation of care including admission/observation considered Lab Data MDM Lab Attestation statement: I reviewed the patient's lab results. 08/06/23 18:05 08/06/23 18:05 Labs: Lab Results 08/06/23 08/06/23 Range/Units 18:05 23:51 WBC 7.6 (4.8-10.8) X10*3/uL RBC 4.51 (4.20-5.50) X10*6/uL Hgb 12.5 (12.0-16.0) g/dl Hct 38.4 (37.0-47.0) % MCV 85.1 (80.0-98.0) fL MCH 27.7 (27.0-33.0) pg MCHC 32.6 (31.0-35.0) g/dl RDW 13.0 (11.0-16.0) % Plt Count 260 (160-400) X10*3/uL MPV 11.0 (9.4-12.3) fL Immature Gran % (Auto) 0.3 (0.0-0.4) % Neut % (Auto) 66.4 (45-73) % Lymph % (Auto) 25.3 (20-40) % [place] % (Auto) 6.7 (2-11) % Eos % (Auto) 0.9 (0-4) % Baso % (Auto) 0.4 (0-2) % Lymph # (Auto) 1.9 (1.2-4.9) X10*3/uL [place] # (Auto) 0.5 (0.1-1.2) X10*3/uL Eos # (Auto) 0.1 (0.0-0.4) X10*3/uL Baso # (Auto) 0.0 (0.0-0.2) X10*3/uL Abs Immat Gran (auto) 0.02 (0.00-0.03) X10*3/uL Absolute Neuts (auto) 5.0 (2.0-8.3) x10*3/uL Absolute Nucleated RBC 0.000 (0.0-0.012) X10*3/uL Nucleated RBC % (auto) 0.0 (0.0-0.2) /100WBC Sodium 140 (135-145) mmol/L Potassium 3.5 (3.3-5.1) mmol/L Chloride 109 H (96-108) mmol/L Carbon Dioxide 23 (22-29) mmol/L Anion Gap 12 (12-20) BUN 13 (9-16) mg/dL Creatinine 0.69 (0.5-1.4) mg/dL Estim Creat Clear Calc 108.7 Estimated GFR > 60 Random Glucose 87 (60-115) mg/dL Calcium 9.6 D (8.4-10.2) mg/dL Total Bilirubin 0.4 (0.0-1.0) mg/dL Direct Bilirubin 0.1 (0.0-0.5) mg/dL AST 35 H (5-31) U/L ALT 26 (0-31) U/L Alkaline Phosphatase 51 (39-117) U/L Troponin I High Sens < 2.7 (<3.5-17.0) ng/L Total Protein 8.2 H (6.5-8.0) g/dL Albumin 4.6 (3.5-5.0) g/dL Lipase 17 (8-78) U/L Beta HCG, Quant < 2 mIU/mL Urine Color Yellow Urine Appearance Clear Urine pH 6.0 (5.0-9.0) Ur Specific [place] 1.025 (1.005-1.025) Urine Protein Negative (Neg-Trace) mg/dL Urine Glucose (UA) Negative (Negative) mg/dL Urine Ketones Negative (Negative) mg/dL Urine Blood Small (1+) H (Negative) Urine Nitrite Negative (Negative) Ur Leukocyte Esterase Negative (Negative) Urine RBC 11-20 H (0-2) /HPF Urine WBC 0-5 (0-5) /HPF Ur Squamous Epith Cells 0-2 (0-2) /HPF Urine Bacteria None Seen (None Seen) Hyaline Casts 0-2 (0-2) /LPF Discharge Plan Discharge Clinical Impression: Syncope, vasovagal Patient Disposition: Home, Self-Care Instructions: Syncope (ED) Additional Instructions: Likely you had passing out episode because of the pain Drink plenty of fluids Medicine for nausea as needed Follow with PCP if not better Probablemente felixviste un episodio de desmayo debido al dolor. Beber mucho l?quido Medicina para las n?useas seg?n sea necesario. Seguir con PCP si no es mejor Prescriptions: New ondansetron 4 mg tablet,disintegrating 4 mg PO Q6-8H PRN (Reason: nausea and vomiting) Qty: 7 0RF No Action cholecalciferol (vitamin D3) 25 mcg (1,000 unit) capsule 25 mcg PO DAILY 90 Days Qty: 90 1RF ibuprofen 600 mg tablet 600 mg PO Q8H PRN (Reason: pain) Qty: 14 0RF ketorolac 30 mg/mL solution 30 mg IM ONCE Qty: 1 0RF cyclobenzaprine 10 mg tablet 10 mg PO BEDTIME PRN (Reason: muscle spasm) Qty: 10 0RF lidocaine [Lidoderm] 5 % adhesive patch,medicated 1 patch topical DAILY Qty: 15 0RF Rx Instructions: leave on most painful area for up to 12 hrs ketorolac 10 mg tablet 10 mg PO Q8H PRN (Reason: pain) 5 Days Qty: 15 0RF pantoprazole 40 mg tablet,delayed release (DR/EC) 40 mg PO DAILY 90 Days Qty: 90 3RF Stand Alone Forms: Work/School Release Interventions: ED Discharge Assessment Last Done: 08/07/23 00:57 Discharge Date/Time: 08/07/23 00:59 Print Language: Maltese
--- NOTE | 2023-08-06 16:51 | ECG_ITS ---
Test Reason : dizzyness Blood Pressure : / mmHG Vent. Rate : 071 BPM Atrial Rate : 071 BPM P-R Int : 156 ms QRS Dur : 080 ms QT Int : 378 ms P-R-T Axes : 056 049 027 degrees QTc Int : 410 ms Normal sinus rhythm Normal ECG No previous ECGs available Referred By: Lara Marroquin Electronically Signed By:MICHELA CHAVEZ
[2023-08-06 18:13] LABS: MANUAL DIFF FLAG NO
[2023-08-06 18:14] LABS: Basophils Percent Auto 0.4 % (0-2); Eosinophils Absolute Auto 0.1 X10*3/uL (0.0-0.4); Eosinophils Percent Auto 0.9 % (0-4); Hematocrit 38.4 % (37.0-47.0); Hemoglobin 12.5 g/dl (12.0-16.0); Imm Gran Abs Auto 0.02 X10*3/uL (0.00-0.03); Imm Gran Pct Auto 0.3 % (0.0-0.4); Lymphocytes Absolute Auto 1.9 X10*3/uL (1.2-4.9); Lymphocytes Percent Auto 25.3 % (20-40); Mean Corpuscular HGB Conc 32.6 g/dl (31.0-35.0); Mean Corpuscular Hemoglobin 27.7 pg (27.0-33.0); Mean Corpuscular Volume 85.1 fL (80.0-98.0); Monocytes Absolute Auto 0.5 X10*3/uL (0.1-1.2); Monocytes Percent Auto 6.7 % (2-11); Neutrophils Percent Auto 66.4 % (45-73); Platelet Count 260 X10*3/uL (160-400); Red Blood Count 4.51 X10*6/uL (4.20-5.50); White Blood Count 7.6 X10*3/uL (4.8-10.8)
[2023-08-06 18:38] LABS: Alanine Aminotransferase 26 U/L (0-31); Albumin Level 4.6 g/dL (3.5-5.0); Alkaline Phosphatase 51 U/L (39-117); Anion Gap 12 (12-20); Aspartate Amino Transferase 35 U/L (5-31); Bilirubin Direct 0.1 mg/dL (0.0-0.5); Bilirubin Total 0.4 mg/dL (0.0-1.0); Blood Urea Nitrogen 13 mg/dL (9-16); Calcium 9.6 mg/dL (8.4-10.2); Carbon Dioxide 23 mmol/L (22-29); Chloride 109 mmol/L (96-108); Creatinine Clr Calc Pharmacy 108.7; Estimated Glomerular Filt Rate > 60; Glucose Random 87 mg/dL (60-115); Potassium 3.5 mmol/L (3.3-5.1); Sodium 140 mmol/L (135-145); Total Protein 8.2 g/dL (6.5-8.0); Troponin-I High Sensitivity < 2.7 ng/L (<3.5-17.0)
[2023-08-06 18:39] LABS: HCG Quantitative < 2 mIU/mL
[2023-08-06 18:44] LABS: Lipase 17 U/L (8-78)
[2023-08-06 21:04] VITALS: BP 130/82; PULSE 82; RESP 14; TEMP 36.7; O2SAT 100
[2023-08-06 23:48] VITALS: BP 109/62; PULSE 64; RESP 16; TEMP 36.2; O2SAT 98
[2023-08-07 00:14] LABS: Appearance Urine Clear; Color Urine Yellow; Glucose Urine UA Negative (Negative); Leukocyte Esterase Urine Negative (Negative); Nitrite Urine Negative (Negative); Specific Gravity - Urine 1.025 (1.005-1.025); UMIC TRIGGER UACC YES; Urine Blood Small (1+) (Negative); Urine Ketones Negative (Negative); Urine Protein Negative (Neg-Trace)
[2023-08-07 00:16] LABS: Bacteria Urine None Seen (None Seen); Hyaline Casts Urine 0-2 /LPF (0-2); Squamous Epithelial Cell Urine 0-2 /HPF (0-2); WBC Urine 0-5 /HPF (0-5)
== END 2023-08-07 00:59 | disposition home or self-care (01) ==
PROVIDERS: Physician Assistant Medical; Emergency Provider Internal Medicine; PCP Internal Medicine
DX: R55 Syncope and collapse (principal); R10.9 Unspecified abdominal pain; R11.10 Vomiting, unspecified
CPT/HCPCS: 36415; 80048; 80076; 81001; 83690; 84484; 84702; 85025; 93005; 99284

== ENCOUNTER → 2023-08-06 16:51 | Outpatient (BNV) | payer OTHER, SELFPAY | PROVIDERS: Emergency Provider Internal Medicine; PCP Internal Medicine; Visit Provider Internal Medicine | DX: R42 Dizziness and giddiness (principal) | CPT/HCPCS: 93010 ==

== ENCOUNTER 2023-08-18 16:04 | Outpatient (AMB) | payer OTHER, SELFPAY ==
[2023-08-18 16:06] VITALS: BP 124/70; PULSE 68; RESP 17; BMI 33.5
--- NOTE | 2023-08-18 16:06 | MHC.PC.OV ---
Vital Signs 08/18/23 16:06 Height 5 ft 1 in Weight 177 lb 8 oz BMI 33.5 BP 124/70 Blood Pressure Location Lt brachial Position Sitting Respiration 17 Pulse 68 Pulse Source Palpation Intake [place] Reasons[place] [facility] [place] Dizziness/ Vomiting Geophysical Support Specialist Required: Yes Geophysical Support Specialist Language: [place]ican Accompanied by: Self / Same As Patient Allergies No Known Allergies [No Known Allergies*] Allergy (Verified 08/18/23 16:16) Medication List - Last Reconciled 08/18/23 by Billy Little PA-C cholecalciferol (vitamin D3) 25 mcg PO DAILY 90 days cyclobenzaprine 10 mg PO BEDTIME PRN ibuprofen 600 mg PO Q8H PRN ketorolac 10 mg PO Q8H PRN 5 days lidocaine 5% (Lidoderm) 1 patch topical DAILY ondansetron 4 mg PO Q6-8H PRN pantoprazole 40 mg PO DAILY 90 days Tobacco use date assessed: 11/13/22 Dental Screening Dental Screen Date: 08/18/23 Did you have a dental visit in the last 12 months?: No Did you have a dental problem in the last 6 months where you did not have access to dental care?: No Was dental information given to patient?: No HPI [facility] [place] Dizziness/ Vomiting HPI Details Patient is a 38-year-old [place] Rican-speaking female here today for an ER follow-up visit. There is reports she was at work and felt very hot and dizzy ended up passing out with loss of consciousness. Was evaluated at the ER in all labs were a essentially normal. Since her event has feeling some fatigue and having left hand pain/ knumbess. She also has noted some yellowish discoloration in her palms that concerns her.. [facility] Medical History Torticollis BPPV (benign paroxysmal positional vertigo) Leukopenia GERD (gastroesophageal reflux disease) Hypovitaminosis D Obese Polyarthralgia Moderate major depression, single episode Dyspepsia Sacroiliitis Myofascial pain syndrome, cervical Cervicalgia Surgical History Hx of bilateral breast reduction surgery Hx of tubal ligation History of 2 sections Family History Father Diabetes mellitus HTN (hypertension) Mother No problems noted. Social History Housing: Apartment Alcohol intake: former Patient Tobacco Use Status: Never used Tobacco e-Cigarette/Vaping Use: Never Used Second Hand Smoke Exposure: No service: No Current occupational status: employed Current occupation: right hand Current occupational exposures/hazards: No Sexual orientation: Straight/Heterosexual Gender identity: Female Cognitive needs: No Hearing needs: No Vision needs: No Female Reproductive History Menstrual Age of Menarche: 14 Questionnaire Thrive Questionnaire Date Thrive assessed: 11/13/22 JAMES-7 AMB Questionnaire JAMES-7 Date JAMES - 7 assessed: 11/13/22 Source: Developed by Drs. Venu Carrion, Naheed Guzman, Aram Jolley and colleagues, with an educational adam from [employer]. Review of Systems Const Denies headache(s) Eyes Denies loss of vision ENT Denies vertigo, Denies dizziness, Denies headache(s) and Denies sore throat Card Denies chest pain, Denies leg edema and Denies lightheadedness Resp Denies cough, Denies hemoptysis and Denies wheezing GI Denies abdominal pain, Denies melena, Denies constipation, Denies diarrhea and Denies vomiting Denies urinary frequency, Denies dysuria and Denies urinary urgency Musc Denies arthralgias, Denies joint swelling, Denies numbness and Denies tingling Neuro Denies Abnormal speech present, Denies behavioral changes, Denies vertigo, Denies dizziness, Denies headache(s), Denies loss of vision, Denies memory loss, Denies numbness and Denies tingling Psych Denies anxiety, Denies behavioral changes, Denies depression, Denies memory loss and Denies panic attacks Adam/Lymph Denies easy bleeding and Denies easy bruising Aller/Immun Denies wheezing Physical exam (Primary Care) Vital Signs: Last Vital Signs Pulse 68 08/18/23 16:06 Resp 17 08/18/23 16:06 BP 124/70 08/18/23 16:06 BMI result Body Mass Index 33.5 Tobacco/Smoking Status: Tobacco use Status Tobacco use date assessed 11/13/22 08/18/23 16:11 Patient Tobacco Use Status Never used Tobacco 12/18/23 16:11 e-Cigarette/Vaping Use Never Used 08/18/23 16:11 Thrive Assessment: Date of Thrive Assessment Date Thrive assessed 11/13/22 08/18/23 16:11 Const General: healthy appearing, no acute distress, alert and awake Nutritional Appearance: well nourished Orientation/consciousness: oriented to person, oriented to place and oriented to time HENMT Ears: TM's normal bilaterally General nose exam: Normal nasal mucous membranes and turbinates present Eyes Conjunctivae: conjunctivae normal Sclerae: sclerae normal Pupils: Equal, round and reactive pupils present Neck Neck: Yes no lymphadenopathy and Yes no JVD Thyroid: Thyroid normal Carotids: no bruits Resp Effort & Inspection: normal respiratory effort and not tachypneic Auscultation: no crackles, no rales, no rhonchi and no wheezes Cardio Rate: regular rate Rhythm: regular rhythm Heart sounds: no murmurs and normal S1 and S2 GI Palpation (GI): Soft to palpation, nontender, no hepatomegaly and no splenomegaly Auscultation: normal bowel sounds Skin General skin exam: no rashes or lesions noted and dry skin Neuro General: oriented to person, oriented to place and oriented to time Cranial nerves: Yes Equal, round and reactive pupils present Speech: No Abnormal speech present Gait exam (Neuro): Normal gait present Motor exam (neuro): no tremor noted Extrem Other: UPPER EXTREMITIES HANDS/WRISTS: 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 Right upper extremity: full ROM Left upper extremity: full ROM Right lower extremity: full ROM; no edema Left lower extremity: full ROM; no edema Psych Mental Status: mental status grossly normal Speech and movement: Normal speech and movement present Affect: normal affect Attitude: cooperative Thought process: Normal thought process present Assessment and Plan Assessment & Plan (1) Syncope: Code(s): R55 - Syncope and collapse Qualifiers: Syncope type: vasovagal syncope Qualified Code(s): R55 - Syncope and collapse Plan: Patient's signs and symptoms most consistent with vasovagal syncope due to her abdominal pain. She does have history of GERD which is likely the reason for her abdominal pain. She has not had any further events since her ER visit. (2) Left hand paresthesia: Code(s): R20.2 - Paresthesia of skin Plan: She reports over the last few weeks having left hand numbness and tingling. 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 Will send for EMG testing of her left upper extremity to evaluate for neuropathy. (3) Elevated LFTs: Code(s): R79.89 - Other specified abnormal findings of blood chemistry Plan: Noted slight elevation in one of her liver enzymes with at the ER visit. Will recheck liver panel Orders: Orders Liver Panel 08/18/23 R79.89 - Other specified abnormal findings of blood chemistry NE electromyogram (EMG) 08/18/23 R20.2 - Paresthesia of skin Medications: Discontinued ibuprofen Discontinued Reason: Doctor's Order 600 mg PO Q8H PRN 14 tabs 0RF pain ketorolac Discontinued Reason: Doctor's Order 10 mg PO Q8H 5 days PRN 15 tabs 0RF pain M43.6 - Torticollis Coding Level of Care Code Est Pt Level 4 (23253) Diagnoses Vasovagal syncope R55 Syncope type: vasovagal syncope Left hand paresthesia R20.2 Elevated LFTs R79.89
== END 2023-08-18 16:37 | disposition home or self-care (01) ==
PROVIDERS: PCP Internal Medicine; Visit Provider Physician Assistant
DX: R55 Syncope and collapse (principal); R20.2 Paresthesia of skin; R79.89 Other specified abnormal findings of blood chemistry
CPT/HCPCS: 99214

== ENCOUNTER 2023-08-19 15:33 | Outpatient (REF) | payer OTHER, SELFPAY ==
[2023-08-19 18:13] LABS: Alanine Aminotransferase 16 U/L (0-31); Albumin Level 4.6 g/dL (3.5-5.0); Alkaline Phosphatase 53 U/L (39-117); Aspartate Amino Transferase 22 U/L (5-31); Bilirubin Direct < 0.2 mg/dL (0.0-0.5); Bilirubin Total 0.2 mg/dL (0.0-1.0)
== END 2023-08-19 15:34 | disposition home or self-care (01) ==
LOC: HO.LAB 15:33
PROVIDERS: PCP Internal Medicine; Visit Provider Physician Assistant
DX: R79.89 Other specified abnormal findings of blood chemistry (principal)
CPT/HCPCS: 36415; 80076

== ENCOUNTER 2023-10-02 13:03 | Outpatient (REF) | payer OTHER, SELFPAY ==
--- NOTE | 2023-10-02 | EMG_ITS ---
Chief complaint: Left 4th and 5th digit numbness, chronic neck pain Reason for referral: Evaluate for ulnar neuropathy versus radiculopathy Referred by: Billy SILVERMAN Procedure done: Left upper extremity NCS/EMG Precautions and/or limitations: None The limb temperature was monitored continuously and remained between 32-36 degrees C during the performance of the NCS. Nerve Conduction Studies Anti Sensory Summary Table ?Stim Site NR Onset (ms) Norm Onset (ms) Peak (ms) Norm Peak (ms) O-P Amp (?V) Norm O-P Amp Site1 Site2 Delta-0 (ms) Dist (cm) Johnathon (m/s) Norm Johnathon (m/s) Left Median Anti Sensory (2nd Digit) Wrist ? 2.3 2.8 <3.6 12.4 >10 Wrist 2nd Digit 2.3 14.0 61 Left Radial Anti Sensory (Thumb) Forearm ? 1.5 1.9 <3.1 40.6 Forearm Thumb 1.5 0.0 Left Ulnar Anti Sensory (5th Digit) Wrist ? 2.4 2.9 <3.7 48.4 >15.0 Wrist 5th Digit 2.4 14.0 58 Motor Summary Table ?Stim Site NR Onset (ms) Norm Onset (ms) O-P Amp (mV) Norm O-P Amp iAmp (mV) Amp (1st) (%) Site1 Site2 Delta-0 (ms) Dist (cm) Johnathon (m/s) Norm Johnathon (m/s) Left Median Motor (Abd Poll Brev) Wrist ? 3.2 <3.9 10.9 >4.5 12.5 100.0 Elbow Wrist 3.8 18.0 47 >45 Elbow ? 7.0 13.2 15.5 121.1 Left Ulnar Motor (Abd Dig Minimi) Wrist ? 2.6 <3.0 10.4 >5 12.6 100.0 B Elbow Wrist 2.6 16.0 62 >45 B Elbow ? 5.2 8.2 10.2 78.8 A Elbow B Elbow 1.6 10.0 63 >45 A Elbow ? 6.8 8.1 10.0 77.9 EMG ?Side Muscle Nerve Root Ins Act Fibs Psw Amp Dur Poly Recrt Int Pat Comment Left 1stDorInt Ulnar C8-T1 Nml Nml Nml Nml Nml 0 Nml Complete Left FlexCarRad Median C6-7 Nml Nml Nml Nml Nml 0 Nml Complete Left Biceps Musculocut C5-6 Nml Nml Nml Nml Nml 0 Nml Complete Left Triceps Radial C6-7-8 Incr 1+ 1+ Nml Nml 0 Nml Complete Left Deltoid Axillary C5-6 Nml Nml Nml Nml Nml 0 Nml Complete Paraspinal EMG ?Side Muscle Nerve Root Ins Act Fibs Psw Comment Left Cervical Upper Rami Nml Nml Nml Left Cervical Mid Rami Nml Nml Nml Left Cervical Lower Rami Nml Nml Nml FINDINGS: All motor and sensory nerves tested showed normal latencies, amplitudes and conduction velocities. Concentric needle EMG was performed in selected muscles of the left upper extremity and cervical paraspinals. Study revealed Signs of electric abnormalities as shown in the table below. Left triceps showed increased insertional activity, PSWs and fibrillations. No active denervation seen on paraspinals. IMPRESSION: 1. This is an abnormal study. 2. There is electrodiagnostic findings suggestive of left C7 radiculopathy. 3. There is no electrodiagnostic evidence for median neuropathy, ulnar neuropathy, or brachial plexopathy. Thank you for your kind referral. Aylin Sow MD, KELLY Board Certified, [place] [employer] and [employer] (ABPMR) Board Certified, [place] Board [employer] Electrodiagnostic Medicine (ABEM) [place] [id number] [facility]
== END 2023-10-02 13:04 | disposition home or self-care (01) ==
LOC: HO.NEURO 13:03
PROVIDERS: PCP Internal Medicine; Visit Provider Physician Assistant
DX: R20.2 Paresthesia of skin (principal); G89.29 Other chronic pain; M54.2 Cervicalgia
CPT/HCPCS: 95886; 95909

== ENCOUNTER → 2023-10-02 13:05 | Outpatient (BNV) | payer OTHER, SELFPAY | PROVIDERS: PCP Internal Medicine; Visit Provider Physical Medicine & Rehabilitation | DX: M50.123 Cervical disc disorder at C6-C7 level with radiculopathy (principal) | CPT/HCPCS: 95886; 95909 ==

== ENCOUNTER 2023-11-15 18:39 | Emergency (ER) | payer OTHER, SELFPAY ==
--- NOTE | ~2023-11-15 | US_ITS ---
EXAMINATION: US ABDOMEN LIMITED CLINICAL INFORMATION: Cholelithiasis. Concern for acute cholecystitis. COMPARISON: None available. TECHNIQUE: Real-time imaging of the right upper quadrant abdominal viscera. FINDINGS: PANCREAS: Not assessed. LIVER: The visualized liver is within normal limits. There is no intrahepatic biliary duct dilatation seen. GALLBLADDER: Gallbladder is normally distended. Numerous gallbladder calculi are seen. There is borderline gallbladder wall thickening up to 3 mm. COMMON BILE DUCT: Normal in caliber measuring 0.5 cm in diameter. RIGHT KIDNEY: Not imaged. FREE FLUID: None. US/US abdomen limited IMPRESSION: Cholelithiasis. Borderline gallbladder wall thickening is nonspecific. No definitive evidence for acute cholecystitis.
--- NOTE | ~2023-11-15 | CT_ITS ---
EXAMINATION: CT ABDOMEN AND PELVIS WITHOUT IV CONTRAST CLINICAL INFORMATION: Right flank pain COMPARISON: None TECHNIQUE: Multiple axial images were obtained from the superior aspect of the liver through the pubic symphysis without intravenous contrast. Images were evaluated on independent dedicated 3-D workstation and 3-D images were reconstructed with concurrent radiologist supervision and subsequently interpreted. Oral contrast was not administered. This CT examination was performed using dose optimization techniques as appropriate, variously including the following: *Automated exposure control *Adjustment of mA and/or kV according to patient size (this includes techniques or standardized protocols for targeted exams where dose is matched to indication/reason for exam; i.e. extremities or head) *Use of iterative reconstruction technique DLP: 591 mGy-cm FINDINGS: LUNG BASES: The visualized lung bases are clear. CARDIOMEDIASTINUM: The visualized heart is normal in size without pericardial effusion. No coronary artery calcification. LIVER: Homogeneous in attenuation. Normal in size. GALLBLADDER: Large calcified cholelithiasis without CT evidence of cholecystitis. BILIARY SYSTEM: No intrahepatic or extrahepatic biliary dilation. PANCREAS: Homogeneous in attenuation. SPLEEN: Normal in size. GENITOURINARY: No contour deforming masses. No perinephric fluid collection. Left lower pole nonobstructing 3 mm renal calculus. No hydroureteronephrosis. ADRENAL GLANDS: Unremarkable. REPRODUCTIVE: Uterus and and bilateral adnexa are unremarkable. GASTROINTESTINAL: The visualized alimentary tract is normal in course. No evidence of obstruction. APPENDIX: The appendix is seen in its entirety and is unremarkable. PERITONEUM: No pneumoperitoneum. No intra-abdominal fluid collection. VASCULATURE: No abdominal aortic aneurysm. LYMPH NODES: No pathologically enlarged abdominal or pelvic lymph nodes. SOFT TISSUES/MUSCULOSKELETAL: There is no acute fracture or significant focal osseous lesion. CT/CT abdomen pelvis wo IV con IMPRESSION: 1. No acute pathology of the abdomen or pelvis on this noncontrast study. 2. Nonobstructing 3 mm left lower pole renal calculus. 3. Cholelithiasis without cholecystitis. Fleischner guidelines were followed.
[2023-11-15 19:21] VITALS: BP 118/80; PULSE 77; RESP 18; TEMP 36.9; O2SAT 99; BMI 32.2
[2023-11-15 19:43] LABS: MANUAL DIFF FLAG NO
[2023-11-15 19:44] LABS: Basophils Percent Auto 0.4 % (0-2); Eosinophils Absolute Auto 0.1 X10*3/uL (0.0-0.4); Eosinophils Percent Auto 1.3 % (0-4); Hematocrit 36.9 % (37.0-47.0); Hemoglobin 12.2 g/dl (12.0-16.0); Imm Gran Abs Auto 0.02 X10*3/uL (0.00-0.03); Imm Gran Pct Auto 0.3 % (0.0-0.4); Lymphocytes Absolute Auto 2.4 X10*3/uL (1.2-4.9); Lymphocytes Percent Auto 30.7 % (20-40); Mean Corpuscular HGB Conc 33.1 g/dl (31.0-35.0); Mean Corpuscular Hemoglobin 27.9 pg (27.0-33.0); Mean Corpuscular Volume 84.2 fL (80.0-98.0); Mean Platelet Volume 10.7 fL (9.4-12.3); Monocytes Absolute Auto 0.6 X10*3/uL (0.1-1.2); Monocytes Percent Auto 7.7 % (2-11); Neutrophils Absolute Auto 4.6 x10*3/uL (2.0-8.3); Neutrophils Percent Auto 59.6 % (45-73); Platelet Count 287 X10*3/uL (160-400); Red Blood Count 4.38 X10*6/uL (4.20-5.50); Red Cell Distribution Width 13.2 % (11.0-16.0); White Blood Count 7.7 X10*3/uL (4.8-10.8)
[2023-11-15 19:46] LABS: Appearance Urine Clear; Color Urine Yellow; Glucose Urine UA Negative (Negative); Leukocyte Esterase Urine Negative (Negative); Nitrite Urine Negative (Negative); Specific Gravity - Urine 1.025 (1.005-1.025); UMIC TRIGGER UACC YES; Urine Blood Moderate (2+) (Negative); Urine Ketones Negative (Negative); Urine Protein Negative (Neg-Trace)
[2023-11-15 19:47] LABS: UPreg QC Valid YES; Urine Pregnancy NEGATIVE (NEGATIVE)
[2023-11-15 19:48] LABS: Bacteria Urine None Seen (None Seen); Hyaline Casts Urine 0-2 /LPF (0-2); Squamous Epithelial Cell Urine 0-2 /HPF (0-2); WBC Urine 0-5 /HPF (0-5)
[2023-11-15 20:00] LABS: Alanine Aminotransferase 16 U/L (0-31); Albumin Level 4.5 g/dL (3.5-5.0); Alkaline Phosphatase 55 U/L (39-117); Anion Gap 10 (12-20); Aspartate Amino Transferase 21 U/L (5-31); Bilirubin Direct 0.1 mg/dL (0.0-0.5); Bilirubin Total 0.3 mg/dL (0.0-1.0); Blood Urea Nitrogen 18 mg/dL (9-16); Calcium 9.5 mg/dL (8.4-10.2); Carbon Dioxide 24 mmol/L (22-29); Chloride 109 mmol/L (96-108); Creatinine Clr Calc Pharmacy 101.5; Estimated Glomerular Filt Rate > 60; Glucose Random 91 mg/dL (60-115); Lipase 22 U/L (8-78); Sodium 139 mmol/L (135-145); Total Protein 7.9 g/dL (6.5-8.0)
--- NOTE | 2023-11-15 21:49 | ED.ABDPAIN ---
HPI - Abdominal Pain General Chief Complaint: Abdominal Pain Stated Complaint: right side/abd pain Time Seen by Provider: 11/15/23 21:19 Source: patient and spanish medical interpreter Mode of arrival: ambulatory Limitations: language barrier History of Present Illness HPI narrative: 38-year-old female with no known medical history here with complaints of right back pain which radiates to the right abdomen intermittent over the last week but very severe earlier today. Now pain is improving. There is no associated vomiting, diarrhea, urinary symptoms, fevers or chills. Last menstrual cycle was 1 week ago. Related Data Previous Rx's Medication Instructions Recorded pantoprazole 40 mg tablet,delayed 40 mg PO DAILY 90 days #90 tabs 07/04/22 release cyclobenzaprine 10 mg tablet 10 mg PO BEDTIME PRN muscle spasm 07/04/23 #10 tabs lidocaine 5 % topical patch 1 patch topical DAILY #15 ea 07/04/23 (Lidoderm) cholecalciferol (vitamin D3) 25 25 mcg PO DAILY 90 days #90 caps 07/25/23 mcg (1,000 unit) capsule ondansetron 4 mg disintegrating 4 mg PO Q6-8H PRN nausea and 08/07/23 tablet vomiting #7 tabs Allergies Allergy/AdvReac Type Severity Reaction Status Date / Time No Known Allergies Allergy Verified 11/15/23 19:21 [No Known Allergies*] Review of Systems Review of Systems Yes all other systems are reviewed and are negative Constitutional: Reports no additional constitutional complaints, Denies body ache(s), Denies chills, Denies fever(s), Denies headache(s) and Denies weakness Eyes: Reports no additional eye complaints and Denies change in vision Reports system reviewed and no additional complaints, except as documented, Denies dizziness, Denies headache(s), Denies nasal congestion, Denies nasal discharge and Denies neck pain Cardiovascular: Reports no additional cardiovascular complaints, Denies chest pain, Denies leg edema and Denies dyspnea Respiratory: Reports no additional respiratory complaints, Denies cough and Denies dyspnea Gastrointestinal: Reports no additional gastrointestinal complaints, Reports abdominal pain, Denies diarrhea, Denies nausea and Denies vomiting Genitourinary: Reports no additional female genitourinary complaints and Denies urinary incontinence Musculoskeletal: Reports no additional musculoskeletal complaints, Reports back pain, Denies arthralgias, Denies joint swelling, Denies neck pain, Denies numbness and Denies tingling Skin/Breast: Reports system reviewed and no additional complaints, except as docu and Denies rash Reports system reviewed and no additional complaints, except as documented, Denies Abnormal speech present, Denies dizziness, Denies headache(s), Denies numbness, Denies tingling and Denies weakness PMFSH Past Medical History Attestation statement: The following information was validated with the patient. Source: old records reviewed and nursing notes reviewed Medical History Torticollis BPPV (benign paroxysmal positional vertigo) Leukopenia GERD (gastroesophageal reflux disease) Hypovitaminosis D Obese Polyarthralgia Moderate major depression, single episode Dyspepsia Sacroiliitis Myofascial pain syndrome, cervical Cervicalgia Surgical History Hx of bilateral breast reduction surgery Hx of tubal ligation History of 2 sections Family History Family History Father Diabetes mellitus HTN (hypertension) Mother No problems noted. Social History Social History Housing: Apartment Alcohol intake: former Patient Tobacco Use Status: Never used Tobacco Smoked in Last 30 Days: No e-Cigarette/Vaping Use: Never Used Second Hand Smoke Exposure: No Use of substances other than those prescribed or required for medical reasons: No Advance Directives: No Advance Directives Information Provided: Yes service: No Current occupational status: employed Current occupation: right hand Current occupational exposures/hazards: No Sexual orientation: Straight/Heterosexual Gender identity: Female Cognitive needs: No Hearing needs: No Vision needs: No Physical Exam ED Vital Signs: Vital Signs - 24 hr 11/15/23 19:21 11/15/23 22:14 11/16/23 00:42 Temperature 98.4 F 97.9 F 97.8 F Pulse Rate 77 69 71 Respiratory Rate 18 16 16 Blood Pressure 118/80 132/93 H 119/65 Pulse Oximetry 99 100 97 Oxygen Delivery Method Room Air Room Air Room Air 11/16/23 01:12 Temperature 97.8 F Pulse Rate 70 Respiratory Rate 16 Blood Pressure 119/65 Pulse Oximetry 97 Oxygen Delivery Method Room Air BMI result Body Mass Index 32.2 Const General: cooperative, healthy appearing, comfortable and no acute distress Orientation/consciousness: patient oriented x3 Limitations: no limitations HENMT Head: Yes normal to inspection Ears: hearing grossly normal bilaterally General nose exam: Normal external nose present Face and sinus: Yes normal facial exam Mouth: Normal oral and palatal mucosa present Throat: Yes posterior oropharynx normal Eyes General: appearance normal, both eyes and all related structures Pupils: Equal, round and reactive pupils present Neck Neck: Yes normal visual inspection Chest Chest palpation & inspection: normal inspection of the chest Resp Effort & Inspection: normal respiratory effort Auscultation: clear to auscultation bilaterally Cardio Rate: regular rate Rhythm: regular rhythm Peripheral pulses: Peripheral pulses 2+ throughout GI Inspection: Yes normal to inspection Palpation (GI): Soft to palpation, Tenderness to palpation present (GI) (Right abdomen) with no rebound tenderness and no guarding Auscultation: normal bowel sounds General: Yes CVA tenderness (Mild right) Back/Spine/Pelvis Back: CVA tenderness (Mild right) Thoracic/Lumbar Spine: thoracic and lumbar spine normal to inspection Skin General skin exam: no rashes or lesions noted Neuro General: patient oriented x3, no focal motor deficits and normal sensation to monofilament Cranial nerves: Yes Equal, round and reactive pupils present Cognition (Neuro): normal cognition Speech: No Abnormal speech present Gait exam (Neuro): Normal gait present Motor exam (neuro): 5/5 motor strength present throughout Extrem General: Yes normal to inspection Course Course Course Narrative: CT is concerning for cholelithiasis. No evidence of cholecystitis. Will obtain abdominal ultrasound Reevaluation(s) Reevaluation #1: Reviewed findings of the ultrasound with the patient with a interpreter translator. Her pain is well controlled. She is tolerating p.o.. She can follow up outpatient with General surgery. Reviewed worrisome signs and symptoms of when to return to the emergency room. Comfortable plan for discharge home Medical Decision Making Medical Decision Making MDM Narrative: 38-year-old female with no known medical history here with complaints of right back pain which radiates to the right abdomen intermittent over the last week but very severe earlier today. Now pain is improving. There is no associated vomiting, diarrhea, urinary symptoms, fevers or chills. Last menstrual cycle was 1 week ago. Patient appears comfortable. She reports her pain is improved from earlier. She does have some mild right CVA tenderness and mild right abdominal tenderness but no rebound or guarding. Will obtain labs, UA, urine , CT, give ibuprofen for pain Differential Diagnosis Differential Diagnoses: The differential diagnosis associated with the presentation includes Renal colic, pyelonephritis Low suspicion for cholelithiasis, cholecystitis, appendicitis Admission/Observation Consideration of admission/observation: Escalation of care including admission/observation considered No evidence of acute cholecystitis. Patient is tolerating p.o., pain is well controlled. She can follow up outpatient with General surgery as needed Lab Data MDM Lab Attestation statement: I reviewed the patient's lab results. 11/15/23 19:37 11/15/23 19:37 Labs: Lab Results 11/15/23 Range/Units 19:37 WBC 7.7 (4.8-10.8) X10*3/uL RBC 4.38 (4.20-5.50) X10*6/uL Hgb 12.2 (12.0-16.0) g/dl Hct 36.9 L (37.0-47.0) % MCV 84.2 (80.0-98.0) fL MCH 27.9 (27.0-33.0) pg MCHC 33.1 (31.0-35.0) g/dl RDW 13.2 (11.0-16.0) % Plt Count 287 (160-400) X10*3/uL MPV 10.7 (9.4-12.3) fL Immature Gran % (Auto) 0.3 (0.0-0.4) % Neut % (Auto) 59.6 (45-73) % Lymph % (Auto) 30.7 (20-40) % Wilkin % (Auto) 7.7 (2-11) % Eos % (Auto) 1.3 (0-4) % Baso % (Auto) 0.4 (0-2) % Lymph # (Auto) 2.4 (1.2-4.9) X10*3/uL Wilkin # (Auto) 0.6 (0.1-1.2) X10*3/uL Eos # (Auto) 0.1 (0.0-0.4) X10*3/uL Baso # (Auto) 0.0 (0.0-0.2) X10*3/uL Abs Immat Gran (auto) 0.02 (0.00-0.03) X10*3/uL Absolute Neuts (auto) 4.6 (2.0-8.3) x10*3/uL Absolute Nucleated RBC 0.000 (0.0-0.012) X10*3/uL Nucleated RBC % (auto) 0.0 (0.0-0.2) /100WBC Sodium 139 (135-145) mmol/L Potassium 4.0 (3.3-5.1) mmol/L Chloride 109 H (96-108) mmol/L Carbon Dioxide 24 (22-29) mmol/L Anion Gap 10 L (12-20) BUN 18 H (9-16) mg/dL Creatinine 0.72 (0.5-1.4) mg/dL Estim Creat Clear Calc 101.5 Estimated GFR > 60 Random Glucose 91 (60-115) mg/dL Calcium 9.5 (8.4-10.2) mg/dL Total Bilirubin 0.3 (0.0-1.0) mg/dL Direct Bilirubin 0.1 (0.0-0.5) mg/dL AST 21 (5-31) U/L ALT 16 (0-31) U/L Alkaline Phosphatase 55 (39-117) U/L Total Protein 7.9 (6.5-8.0) g/dL Albumin 4.5 (3.5-5.0) g/dL Lipase 22 (8-78) U/L Urine Color Yellow Urine Appearance Clear Urine pH 6.0 (5.0-9.0) Ur Specific [place] 1.025 (1.005-1.025) Urine Protein Negative (Neg-Trace) mg/dL Urine Glucose (UA) Negative (Negative) mg/dL Urine Ketones Negative (Negative) mg/dL Urine Blood Moderate (2+) H (Negative) Urine Nitrite Negative (Negative) Ur Leukocyte Esterase Negative (Negative) Urine RBC 11-20 H (0-2) /HPF Urine WBC 0-5 (0-5) /HPF Ur Squamous Epith Cells 0-2 (0-2) /HPF Urine Bacteria None Seen (None Seen) Hyaline Casts 0-2 (0-2) /LPF Urine Test NEGATIVE (NEGATIVE) Independent Interpretation I performed an independent interpretation of an: CT Scan Interpretation: I independently viewed the CT scan/abdominal US agree with the radiology report Radiology Impression Discussion of test interpretation with radiology: I have reviewed the radiologist's reading. Radiologist Impression: [address] [address] [address] Scan Report Signed Patient: Glen Russo MR#: [id number] : 1985 Acct:[id number] Age/Sex: 38 / F ADM Date: 11/15/23 Loc: HO.ED Attending Dr: Ordering Physician: Tennille Argueta NP Date of Service: 11/15/23 Procedure(s): CT abdomen pelvis wo IV con Accession Number(s): [id number] cc: Kristina Martínez MD; Tennille Argueta NP~ EXAMINATION: CT ABDOMEN AND PELVIS WITHOUT IV CONTRAST CLINICAL INFORMATION: Right flank pain COMPARISON: None TECHNIQUE: Multiple axial images were obtained from the superior aspect of the liver through the pubic symphysis without intravenous contrast. Images were evaluated on independent dedicated 3-D workstation and 3-D images were reconstructed with concurrent radiologist supervision and subsequently interpreted. Oral contrast was not administered. This CT examination was performed using dose optimization techniques as appropriate, variously including the following: *Automated exposure control *Adjustment of mA and/or kV according to patient size (this includes techniques or standardized protocols for targeted exams where dose is matched to indication/reason for exam; i.e. extremities or head) *Use of iterative reconstruction technique DLP: 591 mGy-cm FINDINGS: LUNG BASES: The visualized lung bases are clear. CARDIOMEDIASTINUM: The visualized heart is normal in size without pericardial effusion. No coronary artery calcification. LIVER: Homogeneous in attenuation. Normal in size. GALLBLADDER: Large calcified cholelithiasis without CT evidence of cholecystitis. BILIARY SYSTEM: No intrahepatic or extrahepatic biliary dilation. PANCREAS: Homogeneous in attenuation. SPLEEN: Normal in size. GENITOURINARY: No contour deforming masses. No perinephric fluid collection. Left lower pole nonobstructing 3 mm renal calculus. No hydroureteronephrosis. ADRENAL GLANDS: Unremarkable. REPRODUCTIVE: Uterus and and bilateral adnexa are unremarkable. GASTROINTESTINAL: The visualized alimentary tract is normal in course. No evidence of obstruction. APPENDIX: The appendix is seen in its entirety and is unremarkable. PERITONEUM: No pneumoperitoneum. No intra-abdominal fluid collection. VASCULATURE: No abdominal aortic aneurysm. LYMPH NODES: No pathologically enlarged abdominal or pelvic lymph nodes. SOFT TISSUES/MUSCULOSKELETAL: There is no acute fracture or significant focal osseous lesion. CT/CT abdomen pelvis wo IV con IMPRESSION: 1. No acute pathology of the abdomen or pelvis on this noncontrast study. 2. Nonobstructing 3 mm left lower pole renal calculus. 3. Cholelithiasis without cholecystitis. Fleischner guidelines were followed. [address] [address] Ultrasound Report Signed Patient: Glen Russo MR#: [id number] : 1985 Acct:[id number] Age/Sex: 38 / F ADM Date: 11/15/23 Loc: HO.ED Attending Dr: Ordering Physician: Tennille Argueta NP Date of Service: 11/15/23 Procedure(s): US abdomen limited Accession Number(s): [id number] cc: Kristina Martínez MD; Tennille Argueta NP~ EXAMINATION: US ABDOMEN LIMITED CLINICAL INFORMATION: Cholelithiasis. Concern for acute cholecystitis. COMPARISON: None available. TECHNIQUE: Real-time imaging of the right upper quadrant abdominal viscera. FINDINGS: PANCREAS: Not assessed. LIVER: The visualized liver is within normal limits. There is no intrahepatic biliary duct dilatation seen. GALLBLADDER: Gallbladder is normally distended. Numerous gallbladder calculi are seen. There is borderline gallbladder wall thickening up to 3 mm. COMMON BILE DUCT: Normal in caliber measuring 0.5 cm in diameter. RIGHT KIDNEY: Not imaged. FREE FLUID: None. US/US abdomen limited IMPRESSION: Cholelithiasis. Borderline gallbladder wall thickening is nonspecific. No definitive evidence for acute cholecystitis. Independent Historian Clinical information obtained from an independent historian. History obtained from or confirmed by: Friend Medications Administered Discontinued Medications Generic Name Dose Route Start Last Admin Trade Name Freq PRN Reason Stop Dose Admin Ibuprofen 600 mg 11/15/23 21:42 11/15/23 22:03 Ibuprofen 600 Mg Tablet PO 11/15/23 21:43 600 mg ONCE ONE Administration Discharge Plan Discharge Clinical Impression: Cholelithiasis Patient Disposition: Home, Self-Care Instructions: Gallstones (ED) Additional Instructions: Your ultrasound shows gallstones. Please eat a low-fat diet. You may follow-up with the surgeon outpatient. Please return for any severe pain, vomiting or fever Prescriptions: No Action cholecalciferol (vitamin D3) 25 mcg (1,000 unit) capsule 25 mcg PO DAILY 90 Days Qty: 90 1RF ondansetron 4 mg tablet,disintegrating 4 mg PO Q6-8H PRN (Reason: nausea and vomiting) Qty: 7 0RF ketorolac 30 mg/mL solution 30 mg IM ONCE Qty: 1 0RF cyclobenzaprine 10 mg tablet 10 mg PO BEDTIME PRN (Reason: muscle spasm) Qty: 10 0RF lidocaine [Lidoderm] 5 % adhesive patch,medicated 1 patch topical DAILY Qty: 15 0RF Rx Instructions: leave on most painful area for up to 12 hrs pantoprazole 40 mg tablet,delayed release (DR/EC) 40 mg PO DAILY 90 Days Qty: 90 3RF Referrals: Prateek Fatima MD [Physician] - 1 week Interventions: ED Discharge Assessment Last Done: 11/16/23 01:12 Discharge Date/Time: 11/16/23 01:13 Print Language: English
[2023-11-15] MEDS: Ibuprofen 600 MG TABLET PO (22:03)
[2023-11-15 22:14] VITALS: BP 132/93; PULSE 69; RESP 16; TEMP 36.6; O2SAT 100
[2023-11-16 00:42] VITALS: BP 119/65; PULSE 71; RESP 16; TEMP 36.6; O2SAT 97
[2023-11-16 01:12] VITALS: BP 119/65; PULSE 70; RESP 16; TEMP 36.6; O2SAT 97
== END 2023-11-16 01:13 | disposition home or self-care (01) ==
PROVIDERS: Emergency Provider Internal Medicine; PCP Internal Medicine
DX: K80.20 Calculus of gallbladder without cholecystitis without obstruction (principal); M54.9 Dorsalgia, unspecified; R10.9 Unspecified abdominal pain
CPT/HCPCS: 36415; 74176; 76705; 80053; 81001; 81025; 82248; 83690; 85025; 99284

== ENCOUNTER 2023-12-05 09:53 | Outpatient (AMB) | payer OTHER, SELFPAY ==
--- NOTE | 2023-12-05 10:10 | A.OFFVIS_ITS ---
Intake Vital Signs 12/05/23 10:10 12/05/23 10:18 Height 5 ft 1 in 5 ft 1 in Weight 167 lb BMI 31.6 BP 125/70 Blood Pressure Location Lt brachial Position Sitting Pulse 76 Intake Visit Reasons: Gallbladder~ER 11-15-23 Intake Note: Patient is seen in office for evaluation and treatment of the gallbladder. Pt c/o: onset since ER visit, since continued diarrhea, vomit, pain RUQ, unable to eat due to pain & weight loss, pain radiates to the back ER/CT/US:11/15/23 Upholstery Handler Required: Yes Upholstery Handler Language: Street Openings Inspector Name: Ashley VALENZUELA Information Interpreted: non-clinical & clinical Accompanied by: Family/Other Allergies No Known Allergies [No Known Allergies*] Allergy (Verified 12/05/23 10:17) Medication List - Last Reconciled 12/05/23 by Larry Templeton MD cholecalciferol (vitamin D3) 25 mcg PO DAILY 90 days cyclobenzaprine 10 mg PO BEDTIME PRN lidocaine 5% (Lidoderm) 1 patch topical DAILY ondansetron 4 mg PO Q6-8H PRN pantoprazole 40 mg PO DAILY 90 days HPI HPI Comments History of Present Illness Details 38-year-old female patient presenting wi th complaints of abdominal pain in the right upper quadrant of approximately 3 weeks' duration. The pain was increasing in severity and she subsequently was evaluated in the emergency department on 11/15/2023. She was noted to have tenderness in the right upper quadrant. Workup revealed gallstones in the gallbladder noted on ultrasound and CT abdomen and pelvis. The ultrasound also noted tenderness with palpation of the gallbladder. Findings were felt to be suggestive of cholecystitis due to cholelithiasis. The patient also reports having past several green gallstones her stool and has documented this her cell phone. [facility] Medical History Torticollis BPPV (benign paroxysmal positional vertigo) Leukopenia GERD (gastroesophageal reflux disease) Hypovitaminosis D Obese Polyarthralgia Moderate major depression, single episode Dyspepsia Sacroiliitis Myofascial pain syndrome, cervical Cervicalgia Surgical History Hx of bilateral breast reduction surgery Hx of tubal ligation History of 2 sections Family History Father Diabetes mellitus HTN (hypertension) Mother No problems noted. Social History Housing: Apartment Alcohol intake: former Patient Tobacco Use Status: Never used Tobacco e-Cigarette/Vaping Use: Never Used Second Hand Smoke Exposure: No service: No Current occupational status: employed Current occupation: right hand Current occupational exposures/hazards: No Sexual orientation: Straight/Heterosexual Gender identity: Female Cognitive needs: No Hearing needs: No Vision needs: No Female Reproductive History Menstrual Age of Menarche: 14 Review of Systems Const All systems reviewed & are unremarkable except as noted in HPI and below Denies chills, Denies fever(s), Denies headache(s), Denies poor appetite and Denies weakness ENT Denies headache(s) Card Denies chest pain, Denies irregular heart rhythm, Denies palpitations and Denies dyspnea Resp Denies cough, Denies excessive phlegm production and Denies dyspnea GI Reports abdominal pain, Denies bloating, Denies change in bowel habits, Denies constipation, Denies heartburn, Reports diarrhea, Denies nausea and Denies vomiting Denies urinary frequency Musc Denies back pain, Denies muscle weakness and Denies numbness Skin/Breast Denies changing lesions and Denies unusual bruising Neuro Denies headache(s), Denies numbness, Denies paresthesias and Denies weakness Psych Denies anxiety and Denies depression Endo Denies palpitations Adam/Lymph Denies lymphadenopathy Physical Exam Vital Signs: Last Vital Signs Pulse 76 12/05/23 10:18 BP 125/70 12/05/23 10:18 BMI result Body Mass Index 31.6 Const General: cooperative and no acute distress Nutritional Appearance: well nourished Orientation/consciousness: patient oriented x3 Limitations: no limitations HEENT Head: Yes normocephalic and Yes atraumatic Ears: hearing grossly normal bilaterally Resp Effort & Inspection: normal respiratory effort, no audible wheezes, no cough and no respiratory distress Cardio Jugular venous distension: no JVD GI Inspection: Yes normal to inspection Palpation (GI): Soft to palpation, Tenderness to palpation present (GI) in the RUQ and Rogers's sign positive; with no rebound tenderness, no guarding, not rigid and No hepatosplenomegaly present Percussion: Yes normal to percussion Auscultation: normal bowel sounds Rectal Exam - Female: deferred Skin Other: Warm, dry, no rash Neuro General: patient oriented x3 Extrem General: Yes no clubbing, cyanosis or edema Assessment & Plan Assessment & Plan (1) Cholecystitis, acute with cholelithiasis: Code(s): K80.00 - Calculus of gallbladder with acute cholecystitis without obstruction Qualifiers: Biliary obstruction: without biliary obstruction Qualified Code(s): K80.00 - Calculus of gallbladder with acute cholecystitis without obstruction Plan 38-year-old female patient presenting with complaints of right upper quadrant abdominal pain found to have multiple gallstones within the gallbladder by ultrasound. On examination the patient remains tender in the right upper quadrant with a positive Rogers sign. Of concern, the patient has been passing gallstones in her stool. Although this may be passing through the common bile duct, it is also possible that she has a cholecystoenteric fistula. I recommended a laparoscopic or possible open cholecystectomy and after discussion of the procedure, risks, and alternatives, she consents to the surgery. Medications: New dicyclomine 10 mg PO BID 20 caps 0RF K80.00 - Calculus of gallbladder with acute cholecystitis without obstruction Coding Level of Care Code New Pt Level 4 (94778) Diagnoses Calculus of gallbladder with acute cholecystitis without obstruction K80.00 Biliary obstruction: without biliary obstruction
[2023-12-05 10:18] VITALS: BP 125/70; PULSE 76; BMI 31.6
== END 2023-12-05 10:33 | disposition home or self-care (01) ==
PROVIDERS: PCP Internal Medicine; Visit Provider Surgery
DX: K80.00 Calculus of gallbladder with acute cholecystitis without obstruction (principal)
CPT/HCPCS: 99204

== ENCOUNTER → 2023-12-05 09:53 | Outpatient (BNVA) | payer OTHER, SELFPAY | PROVIDERS: PCP Internal Medicine; Visit Provider Surgery | DX: K80.00 Calculus of gallbladder with acute cholecystitis without obstruction (principal) | CPT/HCPCS: 99202 ==

== ENCOUNTER 2023-12-06 22:12 | Inpatient (IN) | payer OTHER, SELFPAY ==
--- NOTE | ~2023-12-06 | US_ITS ---
EXAMINATION: US ABDOMEN LIMITED CLINICAL INFORMATION: Right upper quadrant pain.. COMPARISON: None available. TECHNIQUE: Real-time limited imaging of the right upper quadrant abdominal viscera. FINDINGS: PANCREAS: Not assessed. LIVER: The visualized portions of the liver are unremarkable. GALLBLADDER: Numerous gallstones are noted. There is gallbladder wall thickening up to 5 mm. The patient did report pain when scanning the right upper quadrant. COMMON BILE DUCT: Normal in caliber measuring 0.5 cm in diameter. RIGHT KIDNEY: Not assessed. FREE FLUID: None. US/US abdomen limited IMPRESSION: Cholelithiasis with gallbladder wall thickening and pain when scanning the right upper quadrant. Findings are concerning for cholecystitis.
[2023-12-06 22:25] VITALS: BP 133/67; PULSE 78; RESP 18; TEMP 36; O2SAT 98; BMI 31.8
[2023-12-07 00:05] LABS: MANUAL DIFF FLAG NO
[2023-12-07 00:15] LABS: Basophils Percent Auto 0.5 % (0-2); Eosinophils Absolute Auto 0.1 X10*3/uL (0.0-0.4); Eosinophils Percent Auto 2.1 % (0-4); Hematocrit 34.4 % (37.0-47.0); Hemoglobin 11.3 g/dl (12.0-16.0); Imm Gran Abs Auto 0.01 X10*3/uL (0.00-0.03); Imm Gran Pct Auto 0.2 % (0.0-0.4); Lymphocytes Absolute Auto 2.4 X10*3/uL (1.2-4.9); Lymphocytes Percent Auto 35.7 % (20-40); Mean Corpuscular HGB Conc 32.8 g/dl (31.0-35.0); Mean Corpuscular Hemoglobin 27.9 pg (27.0-33.0); Mean Corpuscular Volume 84.9 fL (80.0-98.0); Mean Platelet Volume 11.1 fL (9.4-12.3); Monocytes Absolute Auto 0.6 X10*3/uL (0.1-1.2); Monocytes Percent Auto 8.4 % (2-11); Neutrophils Absolute Auto 3.5 x10*3/uL (2.0-8.3); Neutrophils Percent Auto 53.1 % (45-73); Platelet Count 256 X10*3/uL (160-400); Red Blood Count 4.05 X10*6/uL (4.20-5.50); Red Cell Distribution Width 13.1 % (11.0-16.0); White Blood Count 6.6 X10*3/uL (4.8-10.8)
[2023-12-07 00:19] LABS: Appearance Urine Clear; Color Urine Yellow; Glucose Urine UA Negative (Negative); Leukocyte Esterase Urine Negative (Negative); Nitrite Urine Negative (Negative); Specific Gravity - Urine 1.015 (1.005-1.025); UMIC TRIGGER UACC YES; Urine Blood Moderate (2+) (Negative); Urine Ketones Negative (Negative); Urine Protein Negative (Neg-Trace)
[2023-12-07 00:20] LABS: Alanine Aminotransferase 11 U/L (0-31); Albumin Level 4.2 g/dL (3.5-5.0); Alkaline Phosphatase 47 U/L (39-117); Anion Gap 12 (12-20); Aspartate Amino Transferase 15 U/L (5-31); Bilirubin Total 0.2 mg/dL (0.0-1.0); Blood Urea Nitrogen 12 mg/dL (9-16); Carbon Dioxide 23 mmol/L (22-29); Chloride 107 mmol/L (96-108); Creatinine Clr Calc Pharmacy 117.3; Estimated Glomerular Filt Rate > 60; Glucose Random 93 mg/dL (60-115); Lipase 18 U/L (8-78); Potassium 3.5 mmol/L (3.3-5.1); Sodium 138 mmol/L (135-145); Total Protein 7.2 g/dL (6.5-8.0)
[2023-12-07 00:21] LABS: UPreg QC Valid YES; Urine Pregnancy NEGATIVE (NEGATIVE)
[2023-12-07 00:24] LABS: Bacteria Urine None Seen (None Seen); Hyaline Casts Urine 0-2 /LPF (0-2); Squamous Epithelial Cell Urine 0-2 /HPF (0-2); WBC Urine 0-5 /HPF (0-5)
[2023-12-07 01:28] VITALS: BP 127/77; PULSE 64; RESP 16; TEMP 37.1; O2SAT 99
--- NOTE | 2023-12-07 02:34 | ED_ITS ---
HPI - Abdominal Pain General Chief Complaint: Abdominal Pain Stated Complaint: Abdominal pain Time Seen by Provider: 12/07/23 02:28 Source: patient Mode of arrival: ambulatory Limitations: no limitations History of Present Illness HPI narrative: Patient' with history of gallstones seen here on 11/15 plan for cholecystectomy as outpatient on 12/30 since last visit patient has been having pain off and on today pain is continuous is 18:00 associated with nausea no vomiting no fever no diarrhea Related Data Previous Rx's ?Medication ?Instructions ?Recorded pantoprazole 40 mg tablet,delayed 40 mg PO DAILY 90 days #90 tabs 07/04/22 release cyclobenzaprine 10 mg tablet 10 mg PO BEDTIME PRN muscle spasm 07/04/23 #10 tabs lidocaine 5 % topical patch 1 patch topical DAILY #15 ea 07/04/23 (Lidoderm) cholecalciferol (vitamin D3) 25 25 mcg PO DAILY 90 days #90 caps 07/25/23 mcg (1,000 unit) capsule ondansetron 4 mg disintegrating 4 mg PO Q6-8H PRN nausea and 08/07/23 tablet vomiting #7 tabs dicyclomine 10 mg capsule 10 mg PO BID #20 caps 12/05/23 Allergies Allergy/AdvReac Type Severity Reaction Status Date / Time No Known Allergies Allergy Verified 12/06/23 22:30 [No Known Allergies*] Review of Systems Review of Systems Yes all other systems are reviewed and are negative PMFSH Past Medical History Medical History Torticollis BPPV (benign paroxysmal positional vertigo) Leukopenia GERD (gastroesophageal reflux disease) Hypovitaminosis D Obese Polyarthralgia Moderate major depression, single episode Dyspepsia Sacroiliitis Myofascial pain syndrome, cervical Cervicalgia Surgical History Hx of bilateral breast reduction surgery Hx of tubal ligation History of 2 sections Family History Family History Father Diabetes mellitus HTN (hypertension) Mother No problems noted. Social History Social History Housing: Apartment Alcohol intake: former Patient Tobacco Use Status: Never used Tobacco Smoked in Last 30 Days: No e-Cigarette/Vaping Use: Never Used Second Hand Smoke Exposure: No Use of substances other than those prescribed or required for medical reasons: No Advance Directives: No Advance Directives Information Provided: No Patient : No service: No Current occupational status: employed Current occupation: right hand Current occupational exposures/hazards: No Sexual orientation: Straight/Heterosexual Gender identity: Female Cognitive needs: No Hearing needs: No Vision needs: No Physical Exam ED Vital Signs: Vital Signs - 24 hr 12/06/23 22:25 12/07/23 01:28 12/07/23 04:12 Temperature 96.8 F 98.7 F 98.2 F Pulse Rate 78 64 66 Respiratory Rate 18 16 16 Blood Pressure 133/67 127/77 106/66 Pulse Oximetry 98 99 99 Oxygen Delivery Method Room Air Room Air Room Air 12/07/23 05:51 Temperature 98.3 F Pulse Rate 60 Respiratory Rate 16 Blood Pressure 104/63 Pulse Oximetry 98 Oxygen Delivery Method Room Air BMI result Body Mass Index 31.8 Appearance: Alert. Oriented X3. No acute distress. Eyes: No pallor or icterus ENT: Pharynx normal. Oral Mucosa moist Neck: Normal inspection. Neck supple. CVS: Normal heart rate and rhythm. Pulses normal. Respiratory: No respiratory distress. Equal air entry bilateral, no wheezing/rales/rhonchi Abdomen: Soft and right upper quadrant tenderness Rogers sign positive with guarding Bowel sounds are present, no mass palpable, no CVA tenderness Skin: Skin warm and dry. Normal skin color. Normal skin turgor. Extremities: No lower extremity edema. No calf tenderness Neuro: Oriented X 3. No motor deficit. Medical Decision Making Medical Decision Making MDM Narrative: Patient with cholelithiasis with persistent pain for last few hours ultrasound done which showed Rogers sign positive with thickening of the gallbladder wall with impacted gallbladder stones. Will call surgery for admission 545am: Case discussed with Dr. Fatima surgeon will like to evaluate the patient as he has not convinced that patient need emergency surgery at this time with normal WBC counts are normal liver functions patient is feeling much better after pain medication will keep patient in the ER till seen by surgeon Differential Diagnosis Differential Diagnoses: The differential diagnosis associated with the presentation includes Biliary colic/cholecystitis Admission/Observation Consideration of admission/observation: Escalation of care including admission/observation considered Consult Healthcare Provider Management of the patient was discussed with: Director Of Digital Platforms Lab Data MDM Lab Attestation statement: I reviewed the patient's lab results. 12/06/23 23:51 12/06/23 23:51 Labs: Lab Results 12/06/23 12/06/23 Range/Units 23:50 23:51 WBC 6.6 (4.8-10.8) X10*3/uL RBC 4.05 L (4.20-5.50) X10*6/uL Hgb 11.3 L (12.0-16.0) g/dl Hct 34.4 L (37.0-47.0) % MCV 84.9 (80.0-98.0) fL MCH 27.9 (27.0-33.0) pg MCHC 32.8 (31.0-35.0) g/dl RDW 13.1 (11.0-16.0) % Plt Count 256 (160-400) X10*3/uL MPV 11.1 (9.4-12.3) fL Immature Gran % (Auto) 0.2 (0.0-0.4) % Neut % (Auto) 53.1 (45-73) % Lymph % (Auto) 35.7 (20-40) % Price % (Auto) 8.4 (2-11) % Eos % (Auto) 2.1 (0-4) % Baso % (Auto) 0.5 (0-2) % Lymph # (Auto) 2.4 (1.2-4.9) X10*3/uL Price # (Auto) 0.6 (0.1-1.2) X10*3/uL Eos # (Auto) 0.1 (0.0-0.4) X10*3/uL Baso # (Auto) 0.0 (0.0-0.2) X10*3/uL Abs Immat Gran (auto) 0.01 (0.00-0.03) X10*3/uL Absolute Neuts (auto) 3.5 (2.0-8.3) x10*3/uL Absolute Nucleated RBC 0.000 (0.0-0.012) X10*3/uL Nucleated RBC % (auto) 0.0 (0.0-0.2) /100WBC Sodium 138 (135-145) mmol/L Potassium 3.5 (3.3-5.1) mmol/L Chloride 107 (96-108) mmol/L Carbon Dioxide 23 (22-29) mmol/L Anion Gap 12 (12-20) BUN 12 (9-16) mg/dL Creatinine 0.62 (0.5-1.4) mg/dL Estim Creat Clear Calc 117.3 Estimated GFR > 60 Random Glucose 93 (60-115) mg/dL Calcium 9.0 (8.4-10.2) mg/dL Total Bilirubin 0.2 (0.0-1.0) mg/dL AST 15 (5-31) U/L ALT 11 (0-31) U/L Alkaline Phosphatase 47 (39-117) U/L Total Protein 7.2 (6.5-8.0) g/dL Albumin 4.2 (3.5-5.0) g/dL Lipase 18 (8-78) U/L Urine Color Yellow Urine Appearance Clear Urine pH 7.0 (5.0-9.0) Ur Specific [place] 1.015 (1.005-1.025) Urine Protein Negative (Neg-Trace) mg/dL Urine Glucose (UA) Negative (Negative) mg/dL Urine Ketones Negative (Negative) mg/dL Urine Blood Moderate (2+) H (Negative) Urine Nitrite Negative (Negative) Ur Leukocyte Esterase Negative (Negative) Urine RBC 11-20 H (0-2) /HPF Urine WBC 0-5 (0-5) /HPF Ur Squamous Epith Cells 0-2 (0-2) /HPF Urine Bacteria None Seen (None Seen) Hyaline Casts 0-2 (0-2) /LPF Urine Test NEGATIVE (NEGATIVE) Independent Interpretation I performed an independent interpretation of an: Ultrasound Radiology Impression Discussion of test interpretation with radiology: I have reviewed the radiologist's reading. Radiologist Impression: [address] [address] Ultrasound Report Signed Patient: Glen Russo MR#: [id number] : 1985 Acct:[id number] Age/Sex: 38 / F ADM Date: 12/06/23 Loc: .ED Attending Dr: Ordering Physician: Murtaza Sandra MD Date of Service: 12/07/23 Procedure(s): US abdomen limited Accession Number(s): [id number] cc: Kristina Martínez MD; Murtaza Sandra MD~ EXAMINATION: US ABDOMEN LIMITED CLINICAL INFORMATION: Right upper quadrant pain.. COMPARISON: None available. TECHNIQUE: Real-time limited imaging of the right upper quadrant abdominal viscera. FINDINGS: PANCREAS: Not assessed. LIVER: The visualized portions of the liver are unremarkable. GALLBLADDER: Numerous gallstones are noted. There is gallbladder wall thickening up to 5 mm. The patient did report pain when scanning the right upper quadrant. COMMON BILE DUCT: Normal in caliber measuring 0.5 cm in diameter. RIGHT KIDNEY: Not assessed. FREE FLUID: None. US/US abdomen limited IMPRESSION: Cholelithiasis with gallbladder wall thickening and pain when scanning the right upper quadrant. Findings are concerning for cholecystitis Medications Administered Discontinued Medications Generic Name Dose Route Start Last Admin Trade Name Freq PRN Reason Stop Dose Admin Sodium Chloride 1,000 mls @ 999 mls/hr 12/07/23 02:35 12/07/23 04:22 Ns IV 12/07/23 03:35 Infused .Q1H1M ONE Infusion Morphine Sulfate 4 mg 12/07/23 02:35 12/07/23 03:18 Morphine Sulfate 4 Mg/Ml Cartridge IVPUSH 12/07/23 02:36 4 mg ONCE ONE Administration Protocol Ondansetron HCl 4 mg 12/07/23 02:35 12/07/23 03:18 Ondansetron Hcl 4 Mg/2 Ml Vial IVPUSH 12/07/23 02:36 4 mg ONCE ONE Administration Discharge Plan Discharge Clinical Impression: Biliary colic, Acute cholecystitis Patient Disposition: Still a Patient Prescriptions: No Action cholecalciferol (vitamin D3) 25 mcg (1,000 unit) capsule 25 mcg PO DAILY 90 Days Qty: 90 1RF ondansetron 4 mg tablet,disintegrating 4 mg PO Q6-8H PRN (Reason: nausea and vomiting) Qty: 7 0RF ketorolac 30 mg/mL solution 30 mg IM ONCE Qty: 1 0RF cyclobenzaprine 10 mg tablet 10 mg PO BEDTIME PRN (Reason: muscle spasm) Qty: 10 0RF lidocaine [Lidoderm] 5 % adhesive patch,medicated 1 patch topical DAILY Qty: 15 0RF Rx Instructions: leave on most painful area for up to 12 hrs pantoprazole 40 mg tablet,delayed release (DR/EC) 40 mg PO DAILY 90 Days Qty: 90 3RF dicyclomine 10 mg capsule 10 mg PO BID Qty: 20 0RF Print Language: Salvadorean
[2023-12-07] MEDS: 0.9 % Sodium Chloride 1,000 ML 999 ML IV (03:17)
[2023-12-07] MEDS: ondansetron HCL 4 MG/2 ML VIAL IVPUSH (03:18)
[2023-12-07] MEDS: Morphine Sulfate 4 MG/ML CARTRIDGE IVPUSH (03:18)
[2023-12-07 04:12] VITALS: BP 106/66; PULSE 66; RESP 16; TEMP 36.8; O2SAT 99
[2023-12-07 05:51] VITALS: BP 104/63; PULSE 60; RESP 16; TEMP 36.8; O2SAT 98
[2023-12-07 07:44] VITALS: BP 104/53; PULSE 66; RESP 18; O2SAT 100
--- NOTE | 2023-12-07 08:44 | PC.NURSE ---
Dr. Fatima at bedside
--- NOTE | 2023-12-07 08:58 | P.HPGS_ITS ---
History of Present Illness History of Present Illness Date of Service: 12/11/23 Chief complaint: Cholecystitis Narrative: Glen Suero is a 38 year old female here in the ER because of abdominal pain. She says that she has had this pain on the right side of the abdomen on and off for the past 3 weeks. She was here in the ER as well last November 14 for the same problem. She was discharged with a diagnosis of gallstones based on ultrasound and CT scan. She was actually seen by Dr. Templeton earlier this week and was scheduled for outpatient cholecystectomy. However she had another severe episode last night. She describes occasional nausea. She otherwise denies any other significant medical problems. Currently she says she still has pain although much improved. Review of Systems Constitutional: Constitutional: Denies chills and Denies fever(s) Cardiovascular: Cardiovascular: Denies chest pain, Denies dyspnea and Denies dyspnea on exertion Respiratory: Respiratory: Denies cough, Denies dyspnea and Denies dyspnea on exertion Gastrointestinal: Gastrointestinal: Denies hematochezia and Denies change in bowel habits Genitourinary: Genitourinary: Denies hematuria Musculoskeletal: Musculoskeletal: Denies back pain and Denies limited range of motion Neurologic: Denies focal weakness and Denies convulsions Psychiatric: Psychiatric: Denies depression and Denies mood swings PMFSH Past Medical History Medical History (Updated 12/07/23 @ 09:01 by Prateek Fatima MD) Gallstones Torticollis BPPV (benign paroxysmal positional vertigo) Leukopenia GERD (gastroesophageal reflux disease) Hypovitaminosis D Obese Polyarthralgia Moderate major depression, single episode Dyspepsia Sacroiliitis Myofascial pain syndrome, cervical Cervicalgia Family History Family History Father Diabetes mellitus HTN (hypertension) Mother No problems noted. Surgical History Surgical History (Updated 12/09/23 @ 07:51 by Lynn Manley PA-C) Hx of bilateral breast reduction surgery Hx of tubal ligation History of 2 sections Social History Social History Household Members: Spouse and Children Housing: House Do you presently have visiting nurse or other home services: No Alcohol intake: former Comment: sleeping soundly Patient Tobacco Use Status: Never used Tobacco e-Cigarette/Vaping Use: Never Used Second Hand Smoke Exposure: No service: No Current occupational status: employed Current occupation: right hand Current occupational exposures/hazards: No Sexual orientation: Straight/Heterosexual Gender identity: Female Cognitive needs: No Hearing needs: No Vision needs: No Meds Allergies Allergy/AdvReac Type Severity Reaction Status Date / Time No Known Allergies Allergy Verified 12/06/23 22:30 [No Known Allergies*] Active Medications: Current Medications Dextrose/Sodium Chloride (D5ns) 1,000 mls @ 80 mls/hr IVCONT .[id number] LEONCIO Morphine Sulfate (Morphine Sulfate 2 Mg/Ml Cartridge) 2 mg IVPUSH Q4H PRN; Protocol PRN Reason: pain, severe Sodium Chloride (0.9 % Sodium Chloride Flush 3 Ml Syringe) 3 ml IVFLUSH QSHIFT LEONCIO Home Medications ?Medication ?Instructions ?Recorded ?Confirmed ?Last Taken ?Type cyclobenzaprine 10 mg tablet 10 mg PO BEDTIME PRN muscle spasm 12/07/23 12/07/23 Unknown History dicyclomine 10 mg capsule 10 mg PO BID PRN Abdominal Pain 12/07/23 12/07/23 Unknown History lidocaine 5 % topical patch 1 patch topical DAILY PRN Pain 12/07/23 12/07/23 Unknown History pantoprazole 20 mg tablet,delayed 20 mg PO DAILY PRN Heartburn 12/07/23 12/07/23 Unknown History release Physical Exam Vital Signs: Vital Signs: Last Vital Signs Temp 98.3 F 12/07/23 05:51 Pulse 66 12/07/23 07:44 Resp 18 12/07/23 07:44 BP 104/53 L 12/07/23 07:44 Pulse Ox 100 12/07/23 07:44 O2 Del Method Room Air 12/07/23 07:44 BMI result Body Mass Index 31.8 Const: General: comfortable and no acute distress Orientation/consciousness: patient oriented x3 Neck: Neck: Yes no lymphadenopathy Resp: Auscultation: clear to auscultation bilaterally Cardio: Rhythm: regular rhythm GI: Other: Mild tenderness on the right upper quadrant Palpation (GI): Soft to palpation, Tenderness to palpation present (GI) and no guarding Neuro: General: patient oriented x3 Results Results Labs: Short CBC 12/06/23 Range/Units 23:51 WBC 6.6 (4.8-10.8) X10*3/uL Hgb 11.3 L (12.0-16.0) g/dl Hct 34.4 L (37.0-47.0) % Plt Count 256 (160-400) X10*3/uL BMP 12/06/23 23:51 Sodium 138 Potassium 3.5 Chloride 107 Carbon Dioxide 23 BUN 12 Creatinine 0.62 Calcium 9.0 Liver Function 12/06/23 Range/Units 23:51 Total Bilirubin 0.2 (0.0-1.0) mg/dL AST 15 (5-31) U/L ALT 11 (0-31) U/L Alkaline Phosphatase 47 (39-117) U/L Albumin 4.2 (3.5-5.0) g/dL Urine 12/06/23 12/06/23 Range/Units 23:50 23:51 Urine Color Yellow Urine Appearance Clear Urine pH 7.0 (5.0-9.0) Ur Specific [place] 1.015 (1.005-1.025) Urine Protein Negative (Neg-Trace) mg/dL Urine Glucose (UA) Negative (Negative) mg/dL Urine Test NEGATIVE (NEGATIVE) Assessment and Plan (1) Gallstones: Status: Acute She has known gallstones with chronic right upper quadrant pain. She has mild thickening of the gallbladder wall. This is her 2nd visit to the emergency room in the past 3 weeks. She wants to proceed with cholecystectomy as an inpatient. I would admit her therefore and schedule her for laparoscopic cholecystectomy possible cholecystectomy tomorrow morning. I explained the technique of this procedure to her. I discussed the risks including but not limited to bleeding, infections, injury to other organs including bowel, liver and the bile duct, bile leak, retained stones as well as the benefits and alternatives. Quality Stroke Does the patient have a stroke diagnosis?: No VTE Prior VTE?: No VTE Risk Level:: Medical - low VTE Device Contraindication: Treatment Not Indicated VTE Drug Contraindication: Treatment Not Indicated Procedures Date of Service Date of Service: 12/11/23
[2023-12-07] MEDS: Dextrose 5 % and 0.9 % NaCl 1,000 ML 80 ML IVCONT ×2 (10:00→22:58)
--- NOTE | 2023-12-07 11:02 | PHA.MEDREC ---
Pharmacy Consult ? Medication Reconciliation Pharmacy has completed the medication reconciliation. Pt reports taking protonix 20 mg PRN, however no claim history.
--- NOTE | 2023-12-07 12:22 | PC.NURSE ---
Alert and oriented, reports 7/10 pain but does not want any medication for pain control. Family at bedside
--- NOTE | 2023-12-07 16:16 | PC.NURSE ---
Dr. Prateek Fatima at bedside speaking to patient and regarding plan for Laparoscopic Chloecystectomy tomorrow morning. Aware of NPO status after midnight. Regular diet until midnight. Surgeon discussed expectations/risks associated with surgical procedure. Pt calm/cooperative, all needs met at this time. Call bravo within reach.
[2023-12-07 18:16] VITALS: BMI 32.0
[2023-12-07 18:20] VITALS: BP 111/68; PULSE 68; RESP 16; TEMP 36.3; O2SAT 98
[2023-12-07] MEDS: 0.9 % Sodium Chloride Flush 3 ML SYRINGE IVFLUSH (22:58)
[2023-12-08] VITALS (13 sets, daily range): BP systolic 104–156; BP diastolic 57–81; PULSE 52–83; RESP 13–20; TEMP 36.1–37; O2SAT 99–100
[2023-12-08 05:57] LABS: MANUAL DIFF FLAG NO
[2023-12-08 06:21] LABS: Basophils Percent Auto 0.4 % (0-2); Eosinophils Absolute Auto 0.1 X10*3/uL (0.0-0.4); Eosinophils Percent Auto 2.5 % (0-4); Hematocrit 34.5 % (37.0-47.0); Hemoglobin 11.2 g/dl (12.0-16.0); Imm Gran Abs Auto 0.01 X10*3/uL (0.00-0.03); Imm Gran Pct Auto 0.2 % (0.0-0.4); Lymphocytes Absolute Auto 1.9 X10*3/uL (1.2-4.9); Lymphocytes Percent Auto 36.2 % (20-40); Mean Corpuscular HGB Conc 32.5 g/dl (31.0-35.0); Mean Corpuscular Hemoglobin 27.8 pg (27.0-33.0); Mean Corpuscular Volume 85.6 fL (80.0-98.0); Mean Platelet Volume 11.4 fL (9.4-12.3); Monocytes Absolute Auto 0.5 X10*3/uL (0.1-1.2); Monocytes Percent Auto 8.8 % (2-11); Neutrophils Absolute Auto 2.7 x10*3/uL (2.0-8.3); Neutrophils Percent Auto 51.9 % (45-73); Platelet Count 254 X10*3/uL (160-400); Red Blood Count 4.03 X10*6/uL (4.20-5.50); Red Cell Distribution Width 13.2 % (11.0-16.0); White Blood Count 5.1 X10*3/uL (4.8-10.8)
[2023-12-08 06:26] LABS: Alanine Aminotransferase 10 U/L (0-31); Albumin Level 3.7 g/dL (3.5-5.0); Alkaline Phosphatase 42 U/L (39-117); Anion Gap 10 (12-20); Aspartate Amino Transferase 14 U/L (5-31); Bilirubin Direct < 0.2 mg/dL (0.0-0.5); Bilirubin Total 0.2 mg/dL (0.0-1.0); Blood Urea Nitrogen 11 mg/dL (9-16); Calcium 8.7 mg/dL (8.4-10.2); Carbon Dioxide 24 mmol/L (22-29); Chloride 109 mmol/L (96-108); Creatinine Clr Calc Pharmacy 112.2; Estimated Glomerular Filt Rate > 60; Glucose Random 105 mg/dL (60-115); Potassium 3.9 mmol/L (3.3-5.1); Sodium 139 mmol/L (135-145); Total Protein 6.5 g/dL (6.5-8.0)
--- NOTE | 2023-12-08 10:00 | PC.NURSE ---
Report given to JEWELL Frederick in pre-op area at 0930. Patient picked up from room for transport via wheelchair to short stay surgery at 0945. Name band and non-slip socks in place.
--- NOTE | 2023-12-08 11:16 | HO.ANESPROP2 ---
[facility] Active Problems Active Problems: All Active Problems Gallstones (Acute) Acute cholecystitis (Acute) Biliary colic (Acute) Cholecystitis, acute with cholelithiasis (Acute) Elevated LFTs (Acute) Left hand paresthesia (Acute) Syncope (Acute) Vaso-vagal reaction (Acute) Torticollis (Acute) Impaired glucose tolerance (Acute) Right knee pain (Acute) Left knee pain (Acute) Physical exam (Acute) Fracture of left great toe (Acute) BPPV (benign paroxysmal positional vertigo) (Acute) Leukopenia (Acute) GERD (gastroesophageal reflux disease) (Acute) Hypovitaminosis D (Acute) Obese (Acute) Polyarthralgia (Acute) Moderate major depression, single episode (Acute) Well woman exam with routine gynecological exam (Acute) Acute vaginitis (Acute) Pelvic pain in female (Acute) Potential exposure to STD (Acute) Sacroiliitis (Acute) Myofascial pain syndrome, cervical (Acute) Cervicalgia (Acute) Past Medical History Medical History (Updated 12/07/23 @ 09:01 by Prateek Fatima MD) Gallstones Torticollis BPPV (benign paroxysmal positional vertigo) Leukopenia GERD (gastroesophageal reflux disease) Hypovitaminosis D Obese Polyarthralgia Moderate major depression, single episode Dyspepsia Sacroiliitis Myofascial pain syndrome, cervical Cervicalgia Family History Family History Father Diabetes mellitus HTN (hypertension) Mother No problems noted. Family history of problems with anesthesia: No Surgical History Surgical History Hx of bilateral breast reduction surgery Hx of tubal ligation History of 2 sections History of Problems with Anesthesia: No Social History Social History Household Members: Spouse and Children Housing: House Do you presently have visiting nurse or other home services: No Alcohol intake: former Patient Tobacco Use Status: Never used Tobacco Smoked in Last 30 Days: No e-Cigarette/Vaping Use: Never Used Patient Interested in Nicotine Replacement: No Patient Given Instructions on How to Stop Smoking: No Second Hand Smoke Exposure: No Use of substances other than those prescribed or required for medical reasons: No Currently Displaying Signs/Symptoms of Drug Intoxication Withdrawal: No Any prior treatment program specific to substance use: No Have you been hit, kicked, punched, or otherwise hurt by someone within the past year? If so, by whom?: No Do you feel safe in your current relationship?: Yes Is there a partner from a previous relationship who is making you feel unsafe now?: No Are you made to feel afraid or neglected: No Are you DNR?: No Advance Directives: No Advance Directives Information Provided: No Advance Directives on File: No Do you have thoughts of harming others: None Do you have a plan to hurt others: No Plan Recently lost weight without trying: Unsure Eating poorly because of decreased appetite: No Nutrition Risks: No Nutritional Risk Patient : No (HCG Negative) : No Poor oral hygiene: No service: No Current occupational status: employed Current occupation: right hand Current occupational exposures/hazards: No Sexual orientation: Straight/Heterosexual Gender identity: Female Cognitive needs: No Hearing needs: No Vision needs: No Meds Allergies Allergy/AdvReac Type Severity Reaction Status Date / Time No Known Allergies Allergy Verified 12/06/23 22:30 [No Known Allergies*] Active Medications: Current Medications Dextrose/Sodium Chloride (D5ns) 1,000 mls @ 80 mls/hr IVCONT .[id number] [facility] Last Admin: 12/07/23 22:58 Dose: 80 mls/hr Morphine Sulfate (Morphine Sulfate 2 Mg/Ml Cartridge) 2 mg IVPUSH Q4H PRN; Protocol PRN Reason: pain, severe Omeprazole (Omeprazole 20 Mg Capsule.Dr) 20 mg PO DAILY PRN PRN Reason: Heartburn Sodium Chloride (0.9 % Sodium Chloride Flush 3 Ml Syringe) 3 ml IVFLUSH QSHIFT [facility] Last Admin: 12/08/23 07:44 Dose: Not Given Home Medications ?Medication ?Instructions ?Recorded ?Confirmed ?Last Taken ?Type cyclobenzaprine 10 mg tablet 10 mg PO BEDTIME PRN muscle spasm 12/07/23 12/07/23 Unknown History dicyclomine 10 mg capsule 10 mg PO BID PRN Abdominal Pain 12/07/23 12/07/23 Unknown History lidocaine 5 % topical patch 1 patch topical DAILY PRN Pain 12/07/23 12/07/23 Unknown History pantoprazole 20 mg tablet,delayed 20 mg PO DAILY PRN Heartburn 12/07/23 12/07/23 Unknown History release Exam Height,Weight and Vital Signs: Height 5 ft 1 in Weight 76.9 kg Last Vital Signs Temp 98.6 F 12/08/23 09:55 Pulse 79 12/08/23 09:55 Resp 16 12/08/23 09:55 BP 125/81 12/08/23 09:55 Pulse Ox 100 12/08/23 09:55 O2 Del Method Room Air 12/08/23 09:55 Pertinent Lab Results Pertinent Lab Results: Laboratory Tests 12/06/23 12/06/23 12/08/23 23:50 23:51 05:14 WBC 6.6 5.1 RBC 4.05 L 4.03 L Hgb 11.3 L 11.2 L Hct 34.4 L 34.5 L MCV 84.9 85.6 MCH 27.9 27.8 MCHC 32.8 32.5 RDW 13.1 13.2 Plt Count 256 254 MPV 11.1 11.4 Immature Gran % (Auto) 0.2 0.2 Neut % (Auto) 53.1 51.9 Lymph % (Auto) 35.7 36.2 [place] % (Auto) 8.4 8.8 Eos % (Auto) 2.1 2.5 Baso % (Auto) 0.5 0.4 Lymph # (Auto) 2.4 1.9 [place] # (Auto) 0.6 0.5 Eos # (Auto) 0.1 0.1 Baso # (Auto) 0.0 0.0 Abs Immat Gran (auto) 0.01 0.01 Absolute Neuts (auto) 3.5 2.7 Absolute Nucleated RBC 0.000 0.000 Nucleated RBC % (auto) 0.0 0.0 Sodium 138 139 Potassium 3.5 3.9 Chloride 107 109 H Carbon Dioxide 23 24 Anion Gap 12 10 L BUN 12 11 Creatinine 0.62 0.65 Estim Creat Clear Calc 117.3 112.2 Estimated GFR > 60 > 60 Random Glucose 93 105 Calcium 9.0 8.7 Total Bilirubin 0.2 0.2 Direct Bilirubin < 0.2 AST 15 14 ALT 11 10 Alkaline Phosphatase 47 42 Total Protein 7.2 6.5 Albumin 4.2 3.7 Lipase 18 Urine Color Yellow Urine Appearance Clear Urine pH 7.0 Ur Specific [place] 1.015 Urine Protein Negative Urine Glucose (UA) Negative Urine Ketones Negative Urine Blood Moderate (2+) H Urine Nitrite Negative Ur Leukocyte Esterase Negative Urine RBC 11-20 H Urine WBC 0-5 Ur Squamous Epith Cells 0-2 Urine Bacteria None Seen Hyaline Casts 0-2 Urine Test NEGATIVE Airway Mallampati Class: II TM Dist: >3cm Neck ROM: Full Denture: Upper and Lower Loose/Missing/Broken Teeth: No Heart: rrr Lungs: cta Assessment and Plan Assessment Anesthesia Assessment: Anesthesia Plan Discussed and Chart Reviewed Final Anesthetic Review Family History of Problems with Anesthesia: No History of Problems with Anesthesia: No NPO: Yes ASA Class: I Final Preanesthetic Review: No Changes in Pt Med Stat, Meds/Allgs Chart Reviewed, Consent Obtained/Reviewed and Anes Risks/Benef Reviewed Patient Risk: Low Procedure Risk: Intermediate Anesthetic Plan Anesthetic Plan: GA Disposition: Standard PACU
--- NOTE | 2023-12-08 11:25 | MHC.SHP ---
Pre-Procedural Eval Section A - 24 Hr Update-Section A only Date of Service: 12/08/23 The patient is an INPATIENT: Yes Changes since office visit: No Cold of Flu in the past 2 weeks, No New Medical Problems, No Changes in Medication and No Patient answered all questions The patient has been examined within 24 hours of the surgical procedure. The History & Physical has been completed within 30 days and I have reviewed it.: Yes Section B - Complete if H&P > 30 days Chief Complaint: Cholecystitis Allergies: Allergies Allergy/AdvReac Type Severity Reaction Status Date / Time No Known Allergies Allergy Verified 12/06/23 22:30 [No Known Allergies*] Plan I have reviewed the history and physical and performed a pertinent physical examination on my patient. No changes have occurred unless specified. Time Spent With Patient Time: Total time managing care of this patient today ____ minutes.
--- NOTE | 2023-12-08 12:18 | P.OP_ITS ---
Operative Note Operative Note Date of Service: 12/08/23 Narrative: Preop diagnosis: Gallstones with cholecystitis Postop diagnosis: The same Procedure: Laparoscopic cholecystectomy Surgeon: Prateek Fatima MD ict sales assistant: HERRERA Manley The patient is a 38 year female with known gallstones, came to the ER yesterday because of another episode of right upper quadrant pain. She has had the opposite the past 3 weeks and was in the ER a little over 2 weeks ago. She wanted to proceed with cholecystectomy in view of her persistent symptoms. She understood the planned technique of the procedure as was the risks, benefits, and alternatives. She was brought to the operating room and placed supine under general anesthesia via endotracheal tube. The abdomen was prepped and draped in the usual sterile fashion. A surgical time-out was done. The patient received Cefotan 2 g IV preoperatively I made a short supraumbilical incision using blade 15. This carried down through the full-thickness of the skin subcutaneous fat down to the fascia. The fascia was incised. The peritoneum was entered. Through this incision a Anderson port was introduced. Pneumoperitoneum was introduced to a pressure of 15 mm Hg. From here on the rest the procedure was done under vision with the laparoscopic With laparoscopic visualization using the 10 mm scope, I proceeded to insert a 5/12 minimal brought in the epigastric area to the subcostal margin. Two 5 mm ports introduced a small incisions with the subcostal margin along the anterior axillary line in the midclavicular line. Graspers were placed the working ports with the patient was placed in head up and [id number] position. With laparoscopic visualization was able to see the gallbladder. A grasper was applied at its fundus retract this cephalad. Another grasper was placed at the pouch of the gallbladder to retract this laterally. At this point the gallbladder was being retracted in the cephalad and lateral fashion to put the area of the cystic duct on stretch. There was some edema of the gallbladder wall. I used the [place] dissector to carefully dissect the neck of the gallbladder and define the cystic duct. By doing so was able to clearly define the confluence of the neck with the cystic duct itself. I was also able to achieve a critical view of the hepatocystic triangle. The cystic artery appeared to be running adjacent and lateral to the duct I applied clips on the cystic duct with 2 clips applied distally the cystic duct was transected between clips with Endo scissors. I applied clips on the cystic artery with 2 clips being applied distally and the cystic artery was instructed between scissors as well With traction on the gallbladder away from the liver bed, I proceeded to divide through the hilum with the electrocautery L hook. I carefully the peritoneum with the gallbladder and the liver bed and define a plane of dissection between the gallbladder wall and the liver bed. I the gallbladder along this defined plane of dissection all the way to the fundus anterior thigh entire gallbladder was completely . The gallbladder was retrieved through an endobag through the umbilical incision I reinserted all ports and re-insufflated. I examined the area of dissection. There was no evidence of any bleeding or any bile leak. I have laparoscopically examined all 4 quadrants. There was note of adhesions on the uterus recent with a previous . I observed the subhepatic space again. Again there was no evidence of any being on any bile leak or any bowel injury I therefore desufflated the port sites. I removed all ports under vision with the laparoscope. The umbilical port was removed last. The fascia of the umbilical incision was closed with a [id number] Polysorb 3-0 stitch. Skin closure was achieved all incisions using Polysorb 4-0 subcuticular running sutures. Steri-Strips and dressings were applied. All incisions were infiltrated with Marcaine 0.5 postop analgesia The patient tolerated procedure well. There were no immediate complications. Initial and final counts of sponges and instruments were correct. Estimated blood loss was about 10 cc The patient was extubated without difficulty and transferred to the recovery room with stable vital signs.
[2023-12-08] MEDS: ondansetron HCL 4 MG/2 ML VIAL IVPUSH (12:49)
[2023-12-08] MEDS: HYDROmorphone HCl 0.5 MG/0.5 ML SYRINGE IVPUSH (12:53)
[2023-12-08] MEDS: Dextrose 5 % and 0.9 % NaCl 1,000 ML 80 ML IVCONT (14:28)
--- NOTE | 2023-12-08 15:10 | PM.EVENT ---
Event Note Date of Service: 12/08/23 Event Note: Seen postop Underwent laparoscopic cholecystectomy earlier Looks well Does complain of incisional pain Stable vital signs Abdomen soft She feels that she may not be ready to be discharged today Pain management Diet as tolerated Family at bedside Time Spent With Patient Time: Total time managing care of this patient today ____ minutes.
[2023-12-08] MEDS: oxyCODONE HCl Immed Release 5 MG TABLET PO (19:51)
[2023-12-08] MEDS: Acetaminophen 325 MG TABLET 650 MG PO (19:51)
[2023-12-09] MEDS: Dextrose 5 % and 0.9 % NaCl 1,000 ML 80 ML IVCONT (02:32)
[2023-12-09 03:25] VITALS: BP 100/58; PULSE 73; RESP 16; TEMP 36.7; O2SAT 98
[2023-12-09] MEDS: oxyCODONE HCl Immed Release 5 MG TABLET PO (04:31)
[2023-12-09] MEDS: Acetaminophen 325 MG TABLET 650 MG PO (04:31)
--- NOTE | 2023-12-09 07:50 | PM.PNGS ---
Subjective Subjective Date of Service: 12/09/23 Interval history: Feels improved, pain at incisions is mild. Getting OOB and ambulating to bathroom without difficulty. Tolerating solid diet. Physical Exam Vital Signs: Vital Signs: Last Vital Signs Temp 98.0 F 12/09/23 03:25 Pulse 73 12/09/23 03:25 Resp 16 12/09/23 03:25 BP 100/58 L 12/09/23 03:25 Pulse Ox 98 12/09/23 03:25 O2 Del Method Room Air 12/08/23 19:07 O2 Flow Rate 2 12/08/23 12:58 BMI result Body Mass Index 32.0 Const: General: comfortable, no acute distress and alert Orientation/consciousness: patient oriented x3 Resp: Effort & Inspection: normal respiratory effort GI: Inspection: No distended and Yes incision (dressings c/d/i) Palpation (GI): Soft to palpation, Tenderness to palpation present (GI) (mild incisional) and no guarding Skin: General skin exam: no rashes or lesions noted and no jaundice Neuro: General: patient oriented x3 and moves all extremities Objective Data Active Medications Acetaminophen (Acetaminophen 325 Mg Tablet) 650 mg PO Q6H PRN PRN Reason: fever, pain Last Admin: 12/09/23 04:31 Dose: 650 mg Documented By: JOCELYNE Dextrose/Sodium Chloride (D5ns) 1,000 mls @ 80 mls/hr IVCONT .[id number] [facility] Last Admin: 12/09/23 02:32 Dose: 80 mls/hr Documented By: CHANI Morphine Sulfate (Morphine Sulfate 2 Mg/Ml Cartridge) 2 mg IVPUSH Q4H PRN; Protocol PRN Reason: pain, severe Omeprazole (Omeprazole 20 Mg Capsule.Dr) 20 mg PO DAILY PRN PRN Reason: Heartburn Oxycodone HCl (Oxycodone Hcl Immed Release 5 Mg Tablet) 5 mg PO Q4H PRN PRN Reason: Pain, Moderate(Pain Scale 4-6) Last Admin: 12/09/23 04:31 Dose: 5 mg Documented By: JOCELYNE Sodium Chloride (0.9 % Sodium Chloride Flush 3 Ml Syringe) 3 ml IVFLUSH QSHIFT [facility] Last Admin: 12/09/23 07:11 Dose: Not Given Documented By: SATHISH Non-Admin Reason: IV Running Labs 12/08/23 05:14 12/08/23 05:14 Procedures Date of Service Date of Service: 12/09/23 Progress Note: A&P Assessment and plan (1) Acute cholecystitis: Status: Acute (2) S/P laparoscopic cholecystectomy: Status: Acute Plan POD #1 s/p lap jodi. Doing well post op. Tolerating solid diet, good pain control, ambulating without difficulty. Hemodynamically stable. Abd benign with appropriate post op tenderness, dressings c/d/i. Patient feels ready for dc to home. Dc to home today, f/u in office in 2 weeks. Time Spent With Patient Time: Total time managing care of this patient today ____ minutes. Quality Stroke Does the patient have a stroke diagnosis?: No VTE Prior VTE?: No VTE Risk Level:: Medical - low VTE Device Contraindication: Treatment Not Indicated VTE Drug Contraindication: Treatment Not Indicated
[2023-12-09 07:54] VITALS: BP 129/65; PULSE 75; RESP 16; TEMP 36.7; O2SAT 98
--- NOTE | 2023-12-09 10:12 | MHC.CM.PN ---
S/P jodi lives with family independent with all functional mobility. DP home self care family transport.
--- NOTE | 2023-12-09 11:09 | PM.DS ---
DS: Providers Provider Date of Service: 12/09/23 Date of admission: 12/07/23 08:53 Date of discharge: 12/09/23 Primary care physician: Kristina Butler MD Attending physician on admission: Prateek Fatima Attending physician on discharge: Prateek Fatima DS: Diagnosis Discharge Diagnosis (1) Acute cholecystitis: Status: Acute (2) S/P laparoscopic cholecystectomy: Status: Acute DS: Summary Hospital Course Hospital Course: HPI AT ADMISSION: Glen Suero is a 38 year old female here in the ER because of abdominal pain. She says that she has had this pain on the right side of the abdomen on and off for the past 3 weeks. She was here in the ER as well last November 14 for the same problem. She was discharged with a diagnosis of gallstones based on ultrasound and CT scan. She was actually seen by Dr. Templeton earlier this week and was scheduled for outpatient cholecystectomy. However she had another severe episode last night. She describes occasional nausea. She otherwise denies any other significant medical problems. Currently she says she still has pain although much improved. ABD US showed mild thickening of the gallbladder wall. HOSPITAL COURSE: Given this was her 2nd visit to the emergency room in the past 3 weeks, she wanted to proceed with cholecystectomy as an inpatient. She was admitted to the surgical service for further treatment of the acute cholecystitis. She was added onto the OR schedule for the following day. On 12/08/23, a laparoscopic cholecystectomy was performed by Dr. Fatima without complications. The patient tolerated the procedure well. She had an uncomplicated recovery course and remained overnight for pain control. On POD #1, she felt improved with mild incisional pain and was out of bed and ambulating without difficulty. She was tolerating a solid diet without nausea or vomiting. Her abdomen was benign with appropriate post op tenderness and clean/intact dressings. She felt ready for discharge. She was discharged to home on 12/09/23 in stable condition. She is to follow up in the office in [address] Fatima. Time Attestation Discharge Coordination Time (in mins): 25 Quality: Safe Use of Opioids Does Pt have an Active Cancer Diagnosis on the Problem List?: No Quality: Stroke Does the patient have a stroke diagnosis?: No Physical Exam Vital Signs: Vital Signs: Last Vital Signs Temp 98.1 F 12/09/23 07:54 Pulse 75 12/09/23 07:54 Resp 16 12/09/23 07:54 BP 129/65 12/09/23 07:54 Pulse Ox 98 12/09/23 07:54 O2 Del Method Room Air 12/09/23 07:54 O2 Flow Rate 2 12/08/23 12:58 BMI result Body Mass Index 32.0 Const: General: comfortable, no acute distress and alert Orientation/consciousness: patient oriented x3 Resp: Effort & Inspection: normal respiratory effort GI: Inspection: No distended and Yes incision (dressings c/d/i) Palpation (GI): Soft to palpation, Tenderness to palpation present (GI) (mild incisional), no guarding and not rigid Skin: General skin exam: no rashes or lesions noted and no jaundice Neuro: General: patient oriented x3 DS: Data Data Completed and Pending Pending studies at discharge: Pending at discharge 12/08/23 12:07 Surgical [PTH] Routine Discharge Plan Discharge Anticipated Discharge Date/Time: 12/08/23 12:48 Patient Disposition: Home, Self-Care Discharge Diagnosis: acute cholecystitis, s/p laparoscopic cholecystectomy Referrals: Prateek Fatima MD [Physician] - 2 Weeks Kristina Martínez MD [Primary Care Provider] - 1 Week Discharge Medications: New oxycodone 5 mg tablet 5 mg PO Q4H PRN (Reason: pain (scale score 7-10)) Qty: 24 0RF Rx Instructions: Partial Fill upon patient request. ibuprofen 600 mg tablet 600 mg PO Q6H PRN (Reason: pain) Qty: 30 0RF docusate sodium [Colace] 100 mg capsule 100 mg PO BID Qty: 30 0RF Continued cholecalciferol (vitamin D3) 25 mcg (1,000 unit) capsule 25 mcg PO DAILY 90 Days Qty: 90 1RF dicyclomine 10 mg capsule 10 mg PO BID PRN (Reason: Abdominal Pain) cyclobenzaprine 10 mg tablet 10 mg PO BEDTIME PRN (Reason: muscle spasm) pantoprazole 20 mg Tablet,Delayed Release (Dr/Ec) 20 mg PO DAILY PRN (Reason: Heartburn) lidocaine 5 % adhesive patch,medicated 1 patch topical DAILY PRN (Reason: Pain) Discharge Orders: Discharge Order (Routine); Ordered 12/09/23 Ordered By: Lynn Manley Diet: Low fat, low cholesterol Activity on Discharge: No heavy lifting Stand Alone Forms: Patient Portal Discharge page Print Language: Icelandic Activity Restrictions/Additional Instructions: If the incision area is tender, you may apply an ice pack for short intervals (No more than 20 minutes on, followed by at least 20 minutes off). Do not apply heat. Do not use creams, lotions, or topical antibiotics. These can cause infection or allergic reaction. Ok to shower 48 hours after your surgery. Remove bandaids prior and replace as needed. You have steri strips (small white cloth strips) covering your incision- these will fall off ~1 week. Follow up in office with Dr. Fatima in 2 weeks. ([phone]) No heavy lifting (>10-20lbs) or strenuous activity! Call Your Doctor If: -Your temperature exceeds 101.5? F -You experience excessive pain or swelling -You have an unexpected reaction to medication -You have excessive bleeding -You experience continued vomiting/nausea -Your incision begins to separate -Your incision shows signs of infection such as increased redness, swelling, excessive pain, drainage (light blood or clear fluid is normal) or heat Care Plan Goals: Return to baseline health and resume normal activities following recovery period. Health Concerns: acute cholecystitis Plan of Treatment: s/p laparoscopic cholecystectomy F/u in office in 2 weeks Assessment: Doing well post op. Discharge Date/Time: 12/09/23 09:42
--- NOTE | 2023-12-09 15:37 | HO.POSTANES ---
Post Anesthesia Evaluation Post Anesthesia Evaluation Date of Service: 12/09/23 Vital Signs: Vital Signs Temp Pulse Resp BP Pulse Ox O2 Del Method 12/09/23 07:54 98.1 F 75 16 129/65 98 Room Air Anesthesia: General Endotracheal-GETA Mental Status: Awake Pain Control: Satisfactory Nausea/Vomiting: None Hydration: Adequate Anesthesia-Related Issues: No Anes. Related Issues
== END 2023-12-09 09:42 | disposition home or self-care (01) | DRG 263 ==
LOC: HO.ED 12-07 06:27 → HO.EDOVER 12-07 09:22 → HO.S3 12-07 17:14
PROVIDERS: Admitting Provider Surgery; Emergency Provider Internal Medicine; PCP Internal Medicine; Visit Provider Surgery
PROC: 0FT44ZZ Resection of Gallbladder, Percutaneous Endoscopic Approach (ICD-10-PCS; CPT 47562; principal; 2023-12-08 11:00)
DX: K80.00 Calculus of gallbladder with acute cholecystitis without obstruction (principal); Z79.899 Other long term (current) drug therapy
CPT/HCPCS: 47562; 36415; 76705; 80048; 80053; 80076; 81001; 81025; 83690; 85025; 88304; 99221; 99285; J0665; J1170; J1885; J2250; J2270; J2405; J2704; J3010

== ENCOUNTER → 2023-12-07 08:53 | Outpatient (BNV) | payer OTHER, SELFPAY | PROVIDERS: Admitting Provider Surgery; Emergency Provider Internal Medicine; PCP Internal Medicine; Visit Provider Surgery | DX: K80.00 Calculus of gallbladder with acute cholecystitis without obstruction (principal) | CPT/HCPCS: 47562; 99024; 99222; 99499 ==

== ENCOUNTER 2023-12-18 08:57 | Outpatient (AMB) | payer OTHER, SELFPAY ==
[2023-12-18 09:00] VITALS: BP 112/68; BMI 31.0
--- NOTE | 2023-12-18 09:00 | MHC.PC.OV ---
Vital Signs 12/18/23 09:00 Height 5 ft 1 in Weight 164 lb BMI 31.0 BP 112/68 Blood Pressure Location Lt brachial Position Sitting Intake Visit Reasons: F [facility] 12/08 cholecystectomy Staffing Executive Required: No Accompanied by: Self / Same As Patient Allergies No Known Allergies [No Known Allergies*] Allergy (Verified 12/18/23 09:30) Medication List - Last Reconciled 12/18/23 by Kristina Butler MD cholecalciferol (vitamin D3) 25 mcg PO DAILY 90 days cyclobenzaprine 10 mg PO BEDTIME PRN dicyclomine 10 mg PO BID PRN docusate sodium (Colace) 100 mg PO BID ibuprofen 600 mg PO Q6H PRN lidocaine 5% 1 patch topical DAILY PRN oxycodone 5 mg PO Q4H PRN pantoprazole 20 mg PO DAILY PRN Tobacco use date assessed: 12/18/23 Dental Screening Dental Screen Date: 12/18/23 Did you have a dental visit in the last 12 months?: No Did you have a dental problem in the last 6 months where you did not have access to dental care?: No Was dental information given to patient?: Patient has dentist HPI HPI Comments History of Present Illness Details This is a 38-year-old female with GERD, sacroiliitis and low vitamin-D that comes today as hospital discharge follow-up with discharge date 12/09/2023 due to acute cholecystitis requiring cholecystectomy. Denies any abdominal pain and is having normal bowel movements. Has follow-up with surgeon next week. At the hospital has lab done and ultrasound of the abdomen showing cholelithiasis. GERD stable with pantoprazole. On cyclobenzaprine for sacroiliitis as needed. On vitamin-D supplements for her low vitamin-D. No chest pain or shortness of breath. [facility] Medical History (Updated 12/18/23 @ 12:15 by Kristina Butler MD) Gallstones Torticollis BPPV (benign paroxysmal positional vertigo) Leukopenia GERD (gastroesophageal reflux disease) Hypovitaminosis D Obese Polyarthralgia Moderate major depression, single episode Dyspepsia Sacroiliitis Myofascial pain syndrome, cervical Cervicalgia Surgical History History of cholecystectomy Hx of bilateral breast reduction surgery Hx of tubal ligation History of 2 sections Family History Father Diabetes mellitus HTN (hypertension) Mother No problems noted. Social History Household Members: Spouse and Children Housing: House Do you presently have visiting nurse or other home services: No Alcohol intake: former Comment: sleeping soundly Patient Tobacco Use Status: Never used Tobacco e-Cigarette/Vaping Use: Never Used Second Hand Smoke Exposure: No service: No Current occupational status: employed Current occupation: right hand Current occupational exposures/hazards: No Sexual orientation: Straight/Heterosexual Gender identity: Female Cognitive needs: No Hearing needs: No Vision needs: No Female Reproductive History Menstrual Age of Menarche: 14 Questionnaire PHQ-9 Over the last 2 weeks, how often have you been bothered by any of the following problems? 1. Little interest or pleasure in doing things: not at all 2. Feeling down, depressed, or hopeless: not at all 3. Trouble falling or staying asleep, or sleeping too much: not at all 4. Feeling tired or having little energy: not at all 5. Poor appetite or overeating: not at all 6. Feeling bad about yourself - or that you are a failure or have let yourself or your family down: not at all 7. Trouble concentrating on things, such as reading the newspaper or watching television: not at all 8. Moving or speaking so slowly that other people could have noticed. Or the opposite - being so fidgety or restless that you have been moving around a lot more than usual: not at all 9. Thoughts that you would be better off or of hurting yourself in some way: not at all Total score: 0 Depression Screening Interpretation: Negative Depression Screening Done: Yes 25882 - PHQ-9 Billing: Yes Source: Developed by Drs. Venu Carrion, Naheed Guzman, Aram Jolley and colleagues, with an educational adam from [employer]. Thrive Questionnaire Date Thrive assessed: 12/18/23 I am a: Patient What is your living situation today?: I have a steady place to live Within the past 12 months, did the food you bought not last and you didn't have the money to get more?: Never true Within the past 12 months, did you worry whether your food would run out before you got money to buy more?: Never true Do you have trouble paying for medicines?: No Do you have trouble getting transportation to medical appointments?: No Do you have trouble paying your heating and electricity bill?: No Do you have trouble taking care of your child, family member or friend?: No Do you have trouble with day-to-day activities such as bathing, preparing meals, shopping, managing finances, etc.?: No Are you currently unemployed and looking for a job?: No Are you interested in more education?: No Please select the resources that you would like help with: None Currently or been in a relationship where the following occur: no concerns reported THRIVE Score: 0 AUDIT C Alcohol Use Questionnaire (AUDIT-C) 1. How often do you have a drink containing alcohol?: Never Total Score: 0 JAMES-7 AMB Questionnaire JAMES-7 Date JAMES - 7 assessed: 12/18/23 Feeling nervous, anxious, or on edge: 0 = Not at all Not being able to stop or control worryin = Not at all Worrying too much about different things: 0 = Not at all Trouble relaxin = Not at all Being so restless that it is hard to sit still: 0 = Not at all Becoming easily annoyed or irritable: 0 = Not at all Feeling afraid as if something awful might happen: 0 = Not at all Total JAMES-7 score (0-4 normal; 5-9 mild; 10-14 moderate; 15-21 severe): 0 Source: Developed by Drs. Venu Carrino, Naheed Guzman, Aram Jolley and colleagues, with an educational adam from [employer]. JAMES-7 Assessment Billing JAMES-7 Assessment Tool: JAMES-7 Assessment 14988 Review of Systems Const All systems reviewed & are unremarkable except as noted in HPI and below Eyes Reports no additional complaints, Denies change in vision and Denies other visual disturbances Card Denies chest pain at rest, Denies chest pain with activity, Denies edema, Denies irregular heart rhythm, Denies claudication, Denies dyspnea, Denies dyspnea on exertion, Denies orthopnea, Denies paroxysmal nocturnal dyspnea and Denies slow heart rate Resp Denies cough, Denies dyspnea and Denies dyspnea on exertion GI Denies abdominal pain, Denies change in bowel habits, Denies excessive flatus, Denies nausea and Denies vomiting Physical exam (Primary Care) Vital Signs: Last Vital Signs BP 112/68 12/18/23 09:00 BMI result Body Mass Index 31.0 Tobacco/Smoking Status: Tobacco use Status Tobacco use date assessed 12/18/23 12/18/23 09:05 Patient Tobacco Use Status Never used Tobacco 12/18/23 09:05 e-Cigarette/Vaping Use Never Used 12/18/23 09:05 PHQ-9: PHQ-9 Score PHQ-9: Total score 0 12/18/23 09:33 Depression Screening Interpretation: Negative Thrive Assessment: Date of Thrive Assessment Date Thrive assessed 12/18/23 12/18/23 09:05 Currently or been in a relationship where the following occur: no concerns reported Eyes General: appearance normal, both eyes and all related structures Eyelids: Yes eyelids normal Conjunctivae: conjunctivae normal Neck Neck: Yes normal visual inspection and Yes supple Resp Effort & Inspection: normal respiratory effort Auscultation: clear to auscultation bilaterally Cardio Jugular venous distension: no JVD Rate: regular rate Rhythm: regular rhythm Heart sounds: S1 normal heart sound present and S2 normal heart sound present GI Inspection: Yes normal to inspection Palpation (GI): Soft to palpation and nontender Auscultation: normal bowel sounds Extrem General: Yes full ROM Assessment and Plan Assessment & Plan (1) Hospital discharge follow-up: Code(s): Z09 - Encounter for follow-up examination after completed treatment for conditions other than malignant neoplasm Plan: Discharge date 12/09/2023 due to abdominal pain secondary to acute cholecystitis requiring cholecystectomy. Reports no abdominal pain. Having regular bowel movements. Doing well. (2) S/P laparoscopic cholecystectomy: Code(s): Z90.49 - Acquired absence of other specified parts of digestive tract Plan: Cholecystectomy done due to acute cholecystitis and has recovered well. Follow-up with surgeon next week. (3) GERD (gastroesophageal reflux disease): Code(s): K21.9 - Gastro-esophageal reflux disease without esophagitis Plan: Continue PPIs (4) Hypovitaminosis D: Code(s): E55.9 - Vitamin D deficiency, unspecified Plan: Continue vitamin-D supplements (5) Sacroiliitis: Code(s): M46.1 - Sacroiliitis, not elsewhere classified Plan: Continue cyclobenzaprine as needed. Medications: Changed From pantoprazole 20 mg PO DAILY PRN Heartburn To pantoprazole 20 mg PO DAILY 90 days PRN 90 tabs 1RF Heartburn Coding Level of Care Code TCM Mod MDM <= 14 Days Diagnoses Hospital discharge follow-up Z09 S/P laparoscopic cholecystectomy Z90.49 GERD (gastroesophageal reflux disease) K21.9 Hypovitaminosis D E55.9 Sacroiliitis M46.1 Additional Codes JAMES-7 Assessment Billing - JAMES-7 Assessment Tool: JAMES-7 Assessment 02691 ([id number]) Time Spent (min) 25
== END 2023-12-18 09:48 | disposition home or self-care (01) ==
PROVIDERS: PCP Internal Medicine; Visit Provider Internal Medicine
DX: K21.9 Gastro-esophageal reflux disease without esophagitis (principal); Z09 Encounter for follow-up examination after completed treatment for conditions other than malignant neoplasm; M46.1 Sacroiliitis, not elsewhere classified; Z90.49 Acquired absence of other specified parts of digestive tract; E55.9 Vitamin D deficiency, unspecified
CPT/HCPCS: 99214

== ENCOUNTER 2023-12-22 13:10 | Outpatient (AMB) | payer OTHER, SELFPAY ==
--- NOTE | 2023-12-22 13:15 | MHC.OFFVIS ---
Vital Signs 12/22/23 13:20 Height 5 ft 1 in Weight 163 lb 15.995 oz BMI 31.0 Intake Visit Reasons: laparoscopic cholecystectomy(inpatient ffup) Intake Note: This patient presents for inpatient follow-up status post laparoscopic cholecystectomy. Pt c/o; reports no complaints. Barrel Rifler Broach Required: Yes Barrel Rifler Broach Language: Food And Beverage Coordinator Name: Matt Information Interpreted: non-clinical & clinical Accompanied by: Other Relationship Allergies No Known Allergies [No Known Allergies*] Allergy (Verified 12/22/23 13:21) HPI HPI laparoscopic cholecystectomy(inpatient ffup): Details: [age] year old female here for a follow-up after laparoscopic cholecystectomy as an inpatient last 12/08/2023. She tolerated procedure well. She denies significant complaints and feels well overall. [facility] Medical History Gallstones Torticollis BPPV (benign paroxysmal positional vertigo) Leukopenia GERD (gastroesophageal reflux disease) Hypovitaminosis D Obese Polyarthralgia Moderate major depression, single episode Dyspepsia Sacroiliitis Myofascial pain syndrome, cervical Cervicalgia Surgical History History of laparoscopic cholecystectomy (~12/08/23) History of cholecystectomy Hx of bilateral breast reduction surgery Hx of tubal ligation History of 2 sections Family History Father Diabetes mellitus HTN (hypertension) Mother No problems noted. Social History Household Members: Spouse and Children Housing: House Do you presently have visiting nurse or other home services: No Alcohol intake: former Comment: sleeping soundly Patient Tobacco Use Status: Never used Tobacco e-Cigarette/Vaping Use: Never Used Second Hand Smoke Exposure: No service: No Current occupational status: employed Current occupation: right hand Current occupational exposures/hazards: No Sexual orientation: Straight/Heterosexual Gender identity: Female Cognitive needs: No Hearing needs: No Vision needs: No Female Reproductive History Menstrual Age of Menarche: 14 Review of Systems Const Denies chills and Denies fever(s) Card Denies chest pain, Denies dyspnea and Denies dyspnea on exertion Resp Denies cough, Denies dyspnea and Denies dyspnea on exertion GI Denies hematochezia and Denies change in bowel habits Denies hematuria Musc Denies back pain and Denies limited range of motion Neuro Denies focal weakness and Denies convulsions Psych Denies depression and Denies mood swings Physical Exam Vital Signs: BMI result Body Mass Index 31.0 Const General: comfortable and no acute distress Eyes Other: Anicteric sclerae Resp Effort & Inspection: normal respiratory effort GI Other: All incisions well healed Palpation (GI): Soft to palpation, not firm, nontender and no guarding Assessment & Plan Assessment & Plan (1) S/P laparoscopic cholecystectomy: Code(s): Z90.49 - Acquired absence of other specified parts of digestive tract Category: Surgical Plan: She is doing well postoperatively. All incisions are well healed. I advised her to avoid any lifting more than 20 lb for at least 2 more weeks. She can follow up on a p.r.n. basis.
[2023-12-22 13:20] VITALS: BMI 31.0
== END 2023-12-22 13:35 | disposition home or self-care (01) ==
LOC: HO.HGS 13:10
PROVIDERS: PCP Internal Medicine; Visit Provider Surgery
DX: Z90.49 Acquired absence of other specified parts of digestive tract (principal)
CPT/HCPCS: 99024

== ENCOUNTER → 2023-12-22 13:10 | Outpatient (BNVA) | payer OTHER, SELFPAY | PROVIDERS: PCP Internal Medicine; Visit Provider Surgery | DX: Z90.49 Acquired absence of other specified parts of digestive tract (principal); Z98.890 Other specified postprocedural states | CPT/HCPCS: 99212 ==

== ENCOUNTER 2023-12-30 09:22 | Outpatient (REF) | payer OTHER, SELFPAY ==
[2023-12-31 15:06] LABS: BV Int Neg Control Negative (Negative); BV Int Pos Control Positive (Positive)
== END 2023-12-30 09:23 | disposition home or self-care (01) ==
LOC: HO.LAB 09:22
PROVIDERS: PCP Internal Medicine; Visit Provider Advanced Practice Midwife
DX: N89.8 Other specified noninflammatory disorders of vagina (principal); Z20.2 Contact with and (suspected) exposure to infections with a predominantly sexual mode of transmission; Z90.49 Acquired absence of other specified parts of digestive tract
CPT/HCPCS: 87480; 87510; 87660; 99212

== ENCOUNTER 2023-12-30 09:22 | Outpatient (AMB) | payer OTHER, SELFPAY ==
[2023-12-30 09:36] VITALS: BP 116/64; BMI 31.7
--- NOTE | 2023-12-30 09:36 | MHC.OFFVIS ---
Vital Signs 12/30/23 09:36 Height 5 ft 1 in Weight 168 lb BMI 31.7 BP 116/64 Intake Visit Reasons: ? infection Information Interpreted: clinical only Laboratory Supervisor: Laboratory Supervisor Present Allergies No Known Allergies [No Known Allergies*] Allergy (Verified 12/30/23 09:37) Medication List - Last Reconciled 12/30/23 by Eli Hurd CNM cholecalciferol (vitamin D3) 25 mcg PO DAILY 90 days cyclobenzaprine 10 mg PO BEDTIME PRN dicyclomine 10 mg PO BID PRN docusate sodium (Colace) 100 mg PO BID ibuprofen 600 mg PO Q6H PRN lidocaine 5% 1 patch topical DAILY PRN oxycodone 5 mg PO Q4H PRN pantoprazole 20 mg PO DAILY PRN 90 days Is last menstrual period known: Yes Last menstrual period: 12/02/23 Do you need a note to return to daycare/school/sports/work: No HPI HPI ? infection: Details: Patient is here because she thinks she has an infection she has had itching for the last week in her vagina. Her 1st symptom was after she had gallbladder surgery she had some spotting when she Peed but she denies any dysuria or pain in her bladder area or urinary urgency or frequency. She attributed the spotting to having had a Caruso catheter during her surgery. This feels like a yeast infection she had last year for which the cream did not help her at all it caused her to burn and she instead found the pills very helpful. She does feel better after her gallbladder surgery she had been having a lot of pain. She believes she was on antibiotics for 5 days every 12 hours but I am unable to find a prescription in system and in the notes per Dr. Fatima.. [facility] Medical History Gallstones Torticollis BPPV (benign paroxysmal positional vertigo) Leukopenia GERD (gastroesophageal reflux disease) Hypovitaminosis D Obese Polyarthralgia Moderate major depression, single episode Dyspepsia Sacroiliitis Myofascial pain syndrome, cervical Cervicalgia Surgical History History of laparoscopic cholecystectomy (~12/08/23) History of cholecystectomy Hx of bilateral breast reduction surgery Hx of tubal ligation History of 2 sections Family History Father Diabetes mellitus HTN (hypertension) Mother No problems noted. Social History Household Members: Spouse and Children Housing: House Do you presently have visiting nurse or other home services: No Alcohol intake: former Comment: sleeping soundly Patient Tobacco Use Status: Never used Tobacco e-Cigarette/Vaping Use: Never Used Second Hand Smoke Exposure: No service: No Current occupational status: employed Current occupation: right hand Current occupational exposures/hazards: No Sexual orientation: Straight/Heterosexual Gender identity: Female Cognitive needs: No Hearing needs: No Vision needs: No Female Reproductive History Menstrual Age of Menarche: 14 Duration of menses: 3-5 days Date of last menstrual period: 12/02/23 control method: permanent sterilization Total pregnancies: 2 Full term: 2 Date of last pap smear: 03/24/19 (negative) History of abnormal pap smear: No Physical Exam Vital Signs: Last Vital Signs BP 116/64 12/30/23 09:36 BMI result Body Mass Index 31.7 Other: Her vulva is not at all excoriated labia minora slightly pink there has a scant white discharge that appears essentially within normal limits but could represent mild yeast as well. External Female Exam: normal external appearance and normal appearance of the urethra Speculum Exam - Vagina: normal appearance of the vagina and normal vaginal discharge Speculum Exam - Cervix: normal appearance of the cervix and Cervical os closed Results Reviewed Results Reviewed: Reviewed often notes and notes around recent gallbladder surgery. Assessment & Plan Assessment & Plan (1) S/P laparoscopic cholecystectomy: Code(s): Z90.49 - Acquired absence of other specified parts of digestive tract Category: Surgical (2) Vaginal itching: Comment: Will treat as yeast. Patient desires Diflucan will rx. Code(s): N89.8 - Other specified noninflammatory disorders of vagina Category: Medical Plan Reviewed her history and the potential contributing factors of antibiotic though I could not find the name of the antibiotic she says she was on for 5 days regardless I will treat her as it is yeast infection even though it appears very very mild. She prefers fluconazole tablets to cream and so the cream burned her last year and she had a yeast infection. She is feeling well after her gallbladder surgery and is happy with her care. Rx sent for Diflucan to her pharmacy and I did give her instructions. We will see her for her annual exam as scheduled. Medications: New fluconazole may repeat second dose 72 hrs after first dose if symptoms persist 150 mg PO Q3D 2 doses 2 tabs 1RF Coding Level of Care Code Est Pt Level 3 (97320) Diagnoses S/P laparoscopic cholecystectomy Z90.49 Vaginal itching N89.8
== END 2023-12-30 10:29 | disposition home or self-care (01) ==
PROVIDERS: PCP Internal Medicine; Visit Provider Advanced Practice Midwife
DX: Z90.49 Acquired absence of other specified parts of digestive tract (principal); N89.8 Other specified noninflammatory disorders of vagina
CPT/HCPCS: 99213

== ENCOUNTER 2024-01-14 14:46 | Outpatient (AMB) | payer OTHER, SELFPAY ==
--- NOTE | 2024-01-14 14:48 | MHC.OFFVIS ---
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 Says sx are better but still feeling some itching Audio Visual Technician Required: Yes Audio Visual Technician Language: Complementary Health Therapists Name: [id number] Information Interpreted: non-clinical & clinical Inspector Firearms: Inspector Firearms Present (Aidyn) Allergies No Known Allergies [No Known Allergies*] Allergy (Verified 01/14/24 14:59) Is last menstrual period known: Yes Last menstrual period: 01/07/24 Post menopausal: No HPI Comments Details: She is a premenopausal woman presenting for annual examination. Doing well with no concerns. She tries to eat healthy, no regular exercise. Regular monthly menses x 2-3d. Currently is sexually active w/. She was seen at the [facility] 2 wks. ago and treated for yeast, symptoms are resolved. STI screening offered; she declines. She denies any urinary symptoms. History of bilateral tubal ligation for control. Denies family history of breast, ovarian or colon cancer. Last pap smear 2018, negative. [facility] Medical History Gallstones Torticollis BPPV (benign paroxysmal positional vertigo) Leukopenia GERD (gastroesophageal reflux disease) Hypovitaminosis D Obese Polyarthralgia Moderate major depression, single episode Dyspepsia Sacroiliitis Myofascial pain syndrome, cervical Cervicalgia Surgical History History of laparoscopic cholecystectomy (~12/08/23) History of cholecystectomy Hx of bilateral breast reduction surgery Hx of tubal ligation History of 2 sections Family History Father Diabetes mellitus HTN (hypertension) Mother No problems noted. Social History Household Members: Spouse and Children Housing: House Do you presently have visiting nurse or other home services: No Alcohol intake: former Comment: sleeping soundly Patient Tobacco Use Status: Never used Tobacco e-Cigarette/Vaping Use: Never Used Second Hand Smoke Exposure: No service: No Current occupational status: employed Current occupation: right hand Current occupational exposures/hazards: No Sexual orientation: Straight/Heterosexual Gender identity: Female Cognitive needs: No Hearing needs: No Vision needs: No Female Reproductive History Menstrual Age of Menarche: 14 Duration of menses: 3-5 days Date of last menstrual period: 01/07/24 control method: permanent sterilization Total pregnancies: 3 Full term: 2 Number of Living Children: 2 Ab spontaneous: 1 Date of last pap smear: 03/25/19 (negative) Review of Systems Const All systems reviewed & are unremarkable except as noted in HPI and below Reports as per HPI Eyes Reports no additional complaints ENT Reports no additional complaints Card Reports no additional complaints Resp Reports no additional complaints GI Reports as per HPI and Reports no additional complaints Reports as per HPI Musc Reports no additional complaints Skin/Breast Reports as per HPI Neuro Reports no additional complaints Psych Reports no additional complaints Endo Reports no additional complaints Adam/Lymph Reports no additional complaints Aller/Immun Reports no additional complaints Physical Exam Vital Signs: Last Vital Signs BP 106/62 01/14/24 14:52 BMI result Body Mass Index 31.9 Const General: cooperative, healthy appearing, no acute distress, well developed and alert Orientation/consciousness: patient oriented x3 HEENT Head: Yes normal to inspection Eyes General: appearance normal, both eyes and all related structures Neck Neck: Yes normal visual inspection Thyroid: Thyroid normal Chest Other: Bilateral breast reduction scarring Chest palpation & inspection: normal inspection of the chest and other (no puckering, dimpling, peau de orange, retraction, discharge, masses) Breast/axilla inspection: normal inspection of the breasts Breast/axilla palpation: normal palpation of the breasts Resp Effort & Inspection: normal respiratory effort GI Inspection: Yes normal to inspection and Yes scar Palpation (GI): Soft to palpation Rectal Exam - Female: deferred General: Yes bladder normal to palpation External Female Exam: normal external appearance and normal appearance of the urethra Speculum Exam - Vagina: normal appearance of the vagina, normal palpation and normal vaginal discharge Speculum Exam - Cervix: normal appearance of the cervix and normal palpation Bimanual exam- vagina & uterus: normal bimanual exam, normal palpation, uterine size normal, bladder normal to palpation, normal palpation and non-tender (She reported cramping with the exam) Bimanual Exam- Adnexa, other: no masses Skin General skin exam: no rashes or lesions noted Rashes: no rashes Neuro General: patient oriented x3 Cognition (Neuro): normal cognition Extrem General: Yes normal to inspection Psych Attitude: cooperative Thought process: Normal thought process present Assessment & Plan Assessment & Plan (1) Well woman exam with routine gynecological exam: Code(s): Z01.419 - Encounter for gynecological examination (general) (routine) without abnormal findings Category: Medical (2) Pelvic cramping: Code(s): R10.2 - Pelvic and perineal pain Plan Discussed: Current recommendations for pap smears per ASCCP guidelines. Pap smear obtained today. Breast awareness and periodic breast exams. Maintain a healthy lifestyle including a well balanced diet and routine exercise. BV panel and GC chlamydia obtained due to pelvic cramping during exam. Monitor menses. Report any abnormal bleeding. Patient verbalizes understanding and agrees to the plan of care. She was given opportunity to ask questions and all questions were answered to the best of my ability. RTO in one year for annual supervisor forming department examination. This note is constructed using voice recognition software. While every effort has been made to ensure accuracy, orthotics technician errors may have been included. Coding Level of Care Code Est Pt Prev Care 18-39y(02028) Diagnoses Well woman exam with routine gynecological exam Z01.419 Pelvic cramping R10.2
[2024-01-14 14:52] VITALS: BP 106/62; BMI 31.9
== END 2024-01-14 15:24 | disposition home or self-care (01) ==
LOC: HO.HWS 14:46
PROVIDERS: PCP Internal Medicine; Visit Provider Advanced Practice Midwife
DX: Z01.419 Encounter for gynecological examination (general) (routine) without abnormal findings (principal); R10.2 Pelvic and perineal pain
CPT/HCPCS: 99395

== ENCOUNTER 2024-01-14 14:46 | Outpatient (REF) | payer OTHER, SELFPAY ==
[2024-01-14 17:30] LABS: Bacterial Vaginosis PCR NEGATIVE (Negative); Candida Group PCR NOT DETECTED (Not Detect); Candida glab krusei PCR NOT DETECTED (Not Detect); Trichomonas vaginalis PCR NOT DETECTED (Not Detect)
[2024-01-15 02:23] LABS: CT PCR NOT DETECTED (Not Detect.); NG PCR NOT DETECTED (Not Detect.)
[2024-01-20 12:49] LABS: HPV mRNA E6/E7 rflx Not Detected (Not Detected)
== END 2024-01-14 14:47 | disposition home or self-care (01) ==
LOC: HO.LNP 14:46
PROVIDERS: PCP Internal Medicine; Visit Provider Advanced Practice Midwife
DX: Z01.419 Encounter for gynecological examination (general) (routine) without abnormal findings (principal); R10.2 Pelvic and perineal pain; N89.8 Other specified noninflammatory disorders of vagina
CPT/HCPCS: 0352U; 0353U; 87624; 88142; 99395

== ENCOUNTER 2024-07-19 11:05 | Outpatient (AMB) | payer OTHER, SELFPAY ==
--- NOTE | 2024-07-19 11:08 | MHC.PC.OV ---
Vital Signs 07/19/24 11:09 Height 5 ft 1 in Weight 156 lb BMI 29.5 BP 102/70 Blood Pressure Location Lt brachial Position Sitting Pulse 84 Pulse Source Pulse Oximeter Pulse Oximetry (%) 98 Oxygen Delivery Method Room Air Intake Visit Reasons: PE Intake Note: Patient here for a physical exam Group Exercise Manager Required: No Accompanied by: Self / Same As Patient Allergies No Known Allergies [No Known Allergies*] Allergy (Verified 07/19/24 11:15) Medication List - Last Reconciled 07/19/24 by Kristina Butler MD cholecalciferol (vitamin D3) 25 mcg PO DAILY 90 days cyclobenzaprine 10 mg PO BEDTIME PRN dicyclomine 10 mg PO BID PRN docusate sodium (Colace) 100 mg PO BID fluconazole 150 mg PO Q3D 2 doses ibuprofen 600 mg PO Q6H PRN lidocaine 5% 1 patch topical DAILY PRN pantoprazole 20 mg PO DAILY PRN 90 days Tobacco use date assessed: 12/18/23 Dental Screening Dental Screen Date: 12/18/23 HPI HPI Comments History of Present Illness Details The patient is a 39-year-old female presenting for her physical exam. She reports experiencing increased frequency of respiratory infections since April, characterized by congestion, wheezing, and prolonged recovery times of over a month. Treatment with unspecified home therapies and an inhaler has been partially effective. The patient acknowledges fatigue and difficulty expelling congestion. She recalls respiratory symptoms exacerbating in late April and again in late June. Additionally, she has a history of hypertension, as noted in her family history where both parents have elevated blood pressure. She denies any history of colon cancer in the family. She also utilizes Vitamin D, Flexeril, dicyclomine, docusate, ibuprofen, and pantoprazole for various conditions, with regular Pap smears and routine labs last performed in November, reported normal. No depressive or anxiety disorders are indicated. Pap smear done 2023 was normal. [facility] Medical History (Updated 07/19/24 @ 12:20 by Kristina Butler MD) Gallstones Torticollis BPPV (benign paroxysmal positional vertigo) Leukopenia GERD (gastroesophageal reflux disease) Hypovitaminosis D Obese Polyarthralgia Moderate major depression, single episode Dyspepsia Sacroiliitis Myofascial pain syndrome, cervical Cervicalgia Surgical History History of laparoscopic cholecystectomy (~12/08/23) History of cholecystectomy Hx of bilateral breast reduction surgery Hx of tubal ligation History of 2 sections Family History (Updated 07/19/24 @ 11:21 by Kristina Butler MD) Father Diabetes mellitus HTN (hypertension) Mother HTN (hypertension) Social History Household Members: Spouse and Children Housing: House Do you presently have visiting nurse or other home services: No Alcohol intake: former Comment: sleeping soundly Patient Tobacco Use Status: Never used Tobacco e-Cigarette/Vaping Use: Never Used Second Hand Smoke Exposure: No service: No Current occupational status: employed Current occupation: right hand Current occupational exposures/hazards: No Sexual orientation: Straight/Heterosexual Gender identity: Female Cognitive needs: No Hearing needs: No Vision needs: No Female Reproductive History Menstrual Age of Menarche: 14 Questionnaire PHQ-9 Over the last 2 weeks, how often have you been bothered by any of the following problems? 1. Little interest or pleasure in doing things: not at all 2. Feeling down, depressed, or hopeless: not at all 3. Trouble falling or staying asleep, or sleeping too much: not at all 4. Feeling tired or having little energy: not at all 5. Poor appetite or overeating: not at all 6. Feeling bad about yourself - or that you are a failure or have let yourself or your family down: not at all 7. Trouble concentrating on things, such as reading the newspaper or watching television: not at all 8. Moving or speaking so slowly that other people could have noticed. Or the opposite - being so fidgety or restless that you have been moving around a lot more than usual: not at all 9. Thoughts that you would be better off or of hurting yourself in some way: not at all Total score: 0 Depression Screening Interpretation: Negative Depression Screening Done: Yes 77598 - PHQ-9 Billing: Yes Source: Developed by Drs. Venu Carrion, Naheed Guzman, Aram Jolley and colleagues, with an educational adam from [employer]. Thrive Questionnaire Date Thrive assessed: 12/18/23 I am a: Patient What is your living situation today?: I have a steady place to live Within the past 12 months, did the food you bought not last and you didn't have the money to get more?: Sometimes True Within the past 12 months, did you worry whether your food would run out before you got money to buy more?: Never true Do you have trouble paying for medicines?: No Do you have trouble getting transportation to medical appointments?: No Do you have trouble paying your heating and electricity bill?: I choose not to answer this question Do you have trouble taking care of your child, family member or friend?: No Do you have trouble with day-to-day activities such as bathing, preparing meals, shopping, managing finances, etc.?: No Are you currently unemployed and looking for a job?: I choose not to answer this question Are you interested in more education?: I choose not to answer this question Please select the resources that you would like help with: None Currently or been in a relationship where the following occur: No concerns reported THRIVE Score: 1 AUDIT C Alcohol Use Questionnaire (AUDIT-C) 1. How often do you have a drink containing alcohol?: Never Total Score: 0 Score Reviewed/Action Taken: No JAMES-7 AMB Questionnaire JAMES-7 Date JAMES - 7 assessed: 12/18/23 Feeling nervous, anxious, or on edge: 0 = Not at all Not being able to stop or control worryin = Not at all Worrying too much about different things: 0 = Not at all Trouble relaxin = Not at all Being so restless that it is hard to sit still: 0 = Not at all Becoming easily annoyed or irritable: 0 = Not at all Feeling afraid as if something awful might happen: 0 = Not at all Total JAMES-7 score (0-4 normal; 5-9 mild; 10-14 moderate; 15-21 severe): 0 Source: Developed by Drs. Venu Carrion, Naheed Guzman, Aram Jolley and colleagues, with an educational adam from [employer]. JAMES-7 Assessment Billing JAMES-7 Assessment Tool: JAMES-7 Assessment 91592 Review of Systems Const All systems reviewed & are unremarkable except as noted in HPI and below Card Denies chest pain at rest, Denies chest pain with activity, Denies edema, Denies irregular heart rhythm, Denies claudication, Denies dyspnea, Denies dyspnea on exertion, Denies orthopnea, Denies paroxysmal nocturnal dyspnea and Denies slow heart rate Resp Denies cough, Denies dyspnea and Denies dyspnea on exertion Physical exam (Primary Care) Vital Signs: Last Vital Signs Pulse 84 07/19/24 11:09 BP 102/70 07/19/24 11:09 Pulse Ox 98 07/19/24 11:09 Oxygen Delivery Method Room Air 07/19/24 11:09 BMI result Body Mass Index 29.5 Tobacco/Smoking Status: Tobacco use Status Tobacco use date assessed 12/18/23 07/19/24 11:11 Patient Tobacco Use Status Never used Tobacco 07/19/24 11:11 e-Cigarette/Vaping Use Never Used 07/19/24 11:11 PHQ-9: PHQ-9 Score PHQ-9: Total score 0 07/19/24 11:16 Depression Screening Interpretation: Negative Thrive Assessment: Date of Thrive Assessment Date Thrive assessed 12/18/23 07/19/24 11:11 Currently or been in a relationship where the following occur: No concerns reported [facility] [place] Head: Yes normal to inspection, Yes normocephalic and Yes atraumatic Ears: external ears normal Eyes General: appearance normal, both eyes and all related structures Eyelids: Yes eyelids normal Conjunctivae: conjunctivae normal Neck Neck: Yes normal visual inspection and Yes supple Resp Effort & Inspection: normal respiratory effort Auscultation: clear to auscultation bilaterally Cardio Jugular venous distension: no JVD Rate: regular rate Rhythm: regular rhythm Heart sounds: S1 normal heart sound present and S2 normal heart sound present GI Inspection: Yes normal to inspection Palpation (GI): Soft to palpation and nontender Auscultation: normal bowel sounds Skin General skin exam: no rashes or lesions noted Neuro General: no focal motor deficits Extrem General: Yes full ROM Psych Appearance: grossly normal Office Procedures Flu Questionnaire Does the patient have a severe egg allergy?: No Immunizations Fluarix Triv 7401-0030 (PF) 45 mcg (15 mcg x 3)/0.5 mL IM syringe Performing Provider: Kristina Butler MD Performing Location: [facility] Documented (not given) by: BIANCA Kingsley on 07/19/24 11:13 Reason Not Given: Patient Refused Coding Level of Care Code Est Pt Level 3 (67108) Est Pt Prev Care 18-39y(67868) Diagnoses Physical exam Z00.00 Mild persistent asthma J45.30 Additional Codes JAMES-7 Assessment Billing - JAMES-7 Assessment Tool: JAMES-7 Assessment 37315 ([id number]) PHQ-9 - 54645 - PHQ-9 Billing: Yes ([id number]) Time Spent (min) 34 Assessment & Plan Assessment & Plan (1) Physical exam: Code(s): Z00.00 - Encounter for general adult medical examination without abnormal findings Category: Medical Plan: Repeat in a year. (2) Mild persistent asthma: Code(s): J45.30 - Mild persistent asthma, uncomplicated Category: Medical Plan: Start rescue inhale p.r.n.. Referred to pulmonology. Orders: Orders Influenza [id number] Immunization Today Z23 - Encounter for immunization Referrals Pulmonology Referral J45.30 - Mild persistent asthma, uncomplicated Medications: New Ventolin HFA 90 mcg/actuation (albuterol sulfate) 2 puffs inhalation Q6H PRN 8 grams 0RF shortness of breath or wheezing 30 days NS
[2024-07-19 11:09] VITALS: BP 102/70; PULSE 84; O2SAT 98; BMI 29.5
== END 2024-07-19 11:32 | disposition home or self-care (01) ==
PROVIDERS: PCP Internal Medicine; Visit Provider Internal Medicine
DX: Z00.00 Encounter for general adult medical examination without abnormal findings (principal); J45.30 Mild persistent asthma, uncomplicated

== ENCOUNTER → 2024-07-19 11:05 | Outpatient (BNVA) | payer OTHER, SELFPAY | PROVIDERS: PCP Internal Medicine; Visit Provider Internal Medicine | DX: Z00.00 Encounter for general adult medical examination without abnormal findings (principal); J45.30 Mild persistent asthma, uncomplicated | CPT/HCPCS: 96127; 99212; 99395 ==

== ENCOUNTER 2024-08-30 09:31 | Outpatient (AMB) | payer OTHER, SELFPAY ==
--- NOTE | 2024-08-29 20:32 | MHC.OFFVIS ---
Vital Signs 08/30/24 09:34 Height 5 ft 1 in Weight 158 lb 11.725 oz BMI 30.0 BP 100/68 Blood Pressure Location Lt brachial Position Sitting Pulse 80 Pulse Source Pulse Oximeter Pulse Oximetry (%) 99 Oxygen Delivery Method Room Air Intake Visit Reasons: Mild persistent asthma Certified Registered Nurse Practitioner Required: Yes Certified Registered Nurse Practitioner Language: Mortising Machine Operator Name: [id number] arthur Allergies No Known Allergies [No Known Allergies*] Allergy (Verified 08/30/24 09:38) HPI HPI Mild persistent asthma: Details: Glen is a pleasant 39 year old female, never smoker, with underlying asthma, GERD, depression and polyarthralgias. She was referred by PCP for pulmonary evaluation. She reports experiencing increased frequency of respiratory symptoms, notable in April and June. She has been using albuterol MDI frequently with suboptimal effect for continued productive cough with clear sputum, dyspnea, hoarseness and chest tightness over the last 5 months. She denies wheezing. She reports asthma diagnosed last year, never requiring intubation/hospitalizations related to respiratory distress. She endorses seasonal allergies, no recent allergy testing. She has a dog at home. She denies any occupational exposures. She maternal grandfather otherwise denies any pertinent family history. [facility] Medical History Gallstones Torticollis BPPV (benign paroxysmal positional vertigo) Leukopenia GERD (gastroesophageal reflux disease) Hypovitaminosis D Obese Polyarthralgia Moderate major depression, single episode Dyspepsia Sacroiliitis Myofascial pain syndrome, cervical Cervicalgia Surgical History History of laparoscopic cholecystectomy (~12/08/23) History of cholecystectomy Hx of bilateral breast reduction surgery Hx of tubal ligation History of 2 sections Family History (Updated 07/19/24 @ 11:21 by Kristina Butler MD) Father Diabetes mellitus HTN (hypertension) Mother HTN (hypertension) Social History Household Members: Spouse and Children Housing: House Do you presently have visiting nurse or other home services: No Alcohol intake: former Comment: sleeping soundly Patient Tobacco Use Status: Never used Tobacco e-Cigarette/Vaping Use: Never Used Second Hand Smoke Exposure: No service: No Current occupational status: employed Current occupation: right hand Current occupational exposures/hazards: No Sexual orientation: Straight/Heterosexual Gender identity: Female Cognitive needs: No Hearing needs: No Vision needs: No Female Reproductive History Menstrual Age of Menarche: 14 Review of Systems Const Denies chills, Denies excessive sweating, Denies fever(s), Denies headache(s) and Denies night sweats Eyes Denies dry eyes, Denies irritation and Denies itchy eyes ENT Reports Normal hearing present, Denies headache(s), Denies nasal congestion, Denies nasal discharge, Denies post nasal drip and Denies sore throat Card Denies chest pain, Denies chest pain at rest, Denies chest pain with activity, Denies claudication, Denies leg edema, Denies orthopnea and Denies paroxysmal nocturnal dyspnea Resp Denies chest congestion, Denies excessive phlegm production, Denies pain on inspiration, Denies pain with cough and Denies stridor Musc Denies myalgias Neuro Reports Normal hearing present and Denies headache(s) Endo Denies excessive sweating Adam/Lymph Denies lymphadenopathy Aller/Immun Denies itchy eyes and Denies seasonal rhinorrhea Physical Exam Vital Signs: Last Vital Signs Pulse 80 08/30/24 09:34 BP 100/68 08/30/24 09:34 Pulse Ox 99 08/30/24 09:34 Oxygen Delivery Method Room Air 08/30/24 09:34 BMI result Body Mass Index 30.0 Const General: cooperative, healthy appearing, comfortable, no acute distress, well developed and alert Orientation/consciousness: patient oriented x3 Limitations: no limitations HEENT Head: Yes normal to inspection, Yes normocephalic and Yes atraumatic Ears: hearing grossly normal bilaterally and external ears normal Eyes General: appearance normal, both eyes and all related structures Eyelids: Yes eyelids normal Sclerae: sclerae normal EOM: EOMs intact bilaterally Neck Neck: Yes normal visual inspection and Yes no lymphadenopathy Lymphatic: no lymphadenopathy noted Chest Chest palpation & inspection: normal inspection of the chest Resp Effort & Inspection: normal respiratory effort, able to speak in complete sentences, no audible wheezes, no cough, no stridor, not tachypneic, no tripod positioning and no use of accessory muscles Auscultation: clear to auscultation bilaterally Cardio Jugular venous distension: no JVD Rate: regular rate Rhythm: regular rhythm Skin Other: warm, dry General skin exam: no rashes or lesions noted Neuro General: patient oriented x3 Cranial nerves: Yes Normal hearing present Cognition (Neuro): normal cognition Gait exam (Neuro): Normal gait present Extrem General: Yes normal to inspection, Yes capillary refill normal, Yes no clubbing, cyanosis or edema and Yes no pedal edema Psych Appearance: grossly normal and well kempt Speech and movement: Normal speech and movement present and Clear speech present Affect: normal affect Attitude: cooperative Thought process: Normal thought process present Thought content: Normal thought content present Insight: Good insight present (Psych) Judgement: Good judgement present (Psych) Assessment & Plan Assessment & Plan (1) Asthma: Code(s): J45.909 - Unspecified asthma, uncomplicated Category: Medical (2) Environmental allergies: Code(s): Z91.09 - Other allergy status, other than to drugs and biological substances Category: Medical Plan Ismarie's symptoms are likely related to poorly controlled asthma with possible allergic component. Will send for PFT and RAST to evaluate. Will empirically start Breo. Importance of good oral hygiene reviewed to prevent thrush. All questions were answered and patient is in agreement of plan. Will follow up to review results and response to Breo or sooner if needed. Orders: Orders Resp Allergy Profile Region I Today Z91.09 - Other allergy status, other than to drugs and biological substances Complete Blood Count Auto Diff Today Z91.09 - Other allergy status, other than to drugs and biological substances Immunoglobulin E Today Z91.09 - Other allergy status, other than to drugs and biological substances PFT pulmonary function test Today J45.909 - Unspecified asthma, uncomplicated Medications: New fluticasone furoate-vilanterol 100-25 mcg/dose (Breo Ellipta) 1 inh inhalation DAILY 60 ea 3RF Coding Level of Care Code New Pt Level 4 (03367) Diagnoses Asthma J45.909 Environmental allergies Z91.09
[2024-08-30 09:34] VITALS: BP 100/68; PULSE 80; O2SAT 99
== END 2024-08-30 10:00 | disposition home or self-care (01) ==
PROVIDERS: PCP Internal Medicine; Visit Provider Nurse Practitioner Family
DX: J45.909 Unspecified asthma, uncomplicated (principal); Z91.09 Other allergy status, other than to drugs and biological substances
CPT/HCPCS: 99204

== ENCOUNTER 2024-08-30 09:31 | Outpatient (REF) | payer OTHER, SELFPAY ==
[2024-08-30 10:29] LABS: MANUAL DIFF FLAG NO
[2024-08-30 10:50] LABS: Basophils Percent Auto 0.7 % (0-2); Eosinophils Absolute Auto 0.1 X10*3/uL (0.0-0.4); Eosinophils Percent Auto 1.5 % (0-4); Hematocrit 36.5 % (37.0-47.0); Hemoglobin 11.9 g/dl (12.0-16.0); Imm Gran Abs Auto 0.01 X10*3/uL (0.00-0.03); Imm Gran Pct Auto 0.2 % (0.0-0.4); Lymphocytes Absolute Auto 1.5 X10*3/uL (1.2-4.9); Lymphocytes Percent Auto 33.1 % (20-40); Mean Corpuscular HGB Conc 32.6 g/dl (31.0-35.0); Mean Corpuscular Hemoglobin 27.7 pg (27.0-33.0); Mean Corpuscular Volume 84.9 fL (80.0-98.0); Monocytes Absolute Auto 0.4 X10*3/uL (0.1-1.2); Monocytes Percent Auto 8.5 % (2-11); Neutrophils Absolute Auto 2.6 x10*3/uL (2.0-8.3); Platelet Count 239 X10*3/uL (160-400); Red Cell Distribution Width 13.3 % (11.0-16.0); White Blood Count 4.6 X10*3/uL (4.8-10.8)
[2024-08-31 20:24] LABS: Class Alternaria alternata 0; Class Aspergillus fumigatus 0; Class Bermuda Grass 0; Class Birch 0; Class Cat Dander 0; Class Cladosporium herbarum 0; Class Cockroach 0; Class Common Ragweed 0; Class Cottonwood 0; Class Derm. pterony 0; Class Dermatophagoides farinae 0; Class Dog Dander 0; Class Elm 0; Class Maple Box Elder 0; Class Mountain Cedar 0; Class Mouse Urine Protein 0; Class Mugwort 0; Class Oak 0; Class Penicillium crysogenum 0; Class Rough Pigweed 0; Class Sheep Sorrel 0; Class Sycamore 0; Class Timothy Grass 0; Class Walnut Tree 0; Class White Ash 0; Class White Mulberry 0; D001 IgE D pteronyssinus <0.10 kU/L; D002 - IgE D farinae <0.10 kU/L; E001 - IgE Cat Dander <0.10 kU/L; E005 - IgE Dog Dander <0.10 kU/L; E072-IgE Mouse Urine <0.10 kU/L; G002 IgE Bermuda Grass <0.10 kU/L; G006 - IgE Timothy Grass <0.10 kU/L; I006-IgE Cockroach, German <0.10 kU/L; Immunoglobulin E <2 kU/L (<OR=114); M001 IgE Penicillium chrysogen <0.10 kU/L; M002 - IgE Cladosporium herbar <0.10 kU/L; M003 - IgE Aspergillus fumigat <0.10 kU/L; M006 - IgE Alternaria alternat <0.10 kU/L; T001 IgE Maple/Box Elder <0.10 kU/L; T003 IgE Common Silver Birch <0.10 kU/L; T006 - IgE Cedar, Mountain <0.10 kU/L; T007 - IgE Oak, White <0.10 kU/L; T008 IgE Elm, American <0.10 kU/L; T010 - IgE Walnut <0.10 kU/L; T011 - IgE Maple Leaf Sycamore <0.10 kU/L; T014 - IgE Cottonwood <0.10 kU/L; T015 - IgE Ash, White <0.10 kU/L; T070 - IgE White Mulberry <0.10 kU/L; W001 - IgE Ragweed, Short <0.10 kU/L; W006 - IgE Mugwort <0.10 kU/L; W014 IgE Pigweed, Common <0.10 kU/L; W018 IgE Sheep Sorrel <0.10 kU/L
== END 2024-08-30 09:32 | disposition home or self-care (01) ==
LOC: HO.LAB 09:31
PROVIDERS: PCP Internal Medicine; Visit Provider Nurse Practitioner Family
DX: Z91.09 Other allergy status, other than to drugs and biological substances (principal); J45.909 Unspecified asthma, uncomplicated
CPT/HCPCS: 36415; 82785; 85025; 86003; 99202

== ENCOUNTER 2024-10-25 09:13 | Outpatient (AMB) | payer OTHER, SELFPAY ==
--- NOTE | 2024-10-24 19:04 | MHC.OFFVIS ---
Vital Signs 10/25/24 09:15 Height 5 ft 1 in Weight 153 lb 3.54 oz BMI 28.9 Pulse 102 H Pulse Oximetry (%) 99 Oxygen Delivery Method Room Air Intake Visit Reasons: Mild persistent asthma Waste Water Treatment Plant Operator Required: Yes Waste Water Treatment Plant Operator Name: In Margaret Harris Lead Security Officer: Lead Security Officer offered & declined Accompanied by: Self / Same As Patient Allergies No Known Allergies [No Known Allergies*] Allergy (Verified 10/25/24 09:25) Medication List - Last Reconciled 10/25/24 by Jessica Nixon LPN cholecalciferol (vitamin D3) 25 mcg PO DAILY 90 days cyclobenzaprine 10 mg PO BEDTIME PRN dicyclomine 10 mg PO BID PRN docusate sodium (Colace) 100 mg PO BID fluconazole 150 mg PO Q3D 2 doses fluticasone furoate-vilanterol 100-25 mcg/dose (Breo Ellipta) 1 inh inhalation DAILY ibuprofen 600 mg PO Q6H PRN lidocaine 5% 1 patch topical DAILY PRN pantoprazole 20 mg PO DAILY PRN 90 days Ventolin HFA 90 mcg/actuation (albuterol sulfate) 2 puffs inhalation Q6H PRN 30 days NS HPI HPI Mild persistent asthma: Details: Glen is a pleasant 39 year old female, never smoker, with underlying asthma, GERD, depression and polyarthralgias. She was initiatlly referred for increased frequency of respiratory symptoms, notable in April and June. She has been using albuterol MDI frequently with suboptimal effect for continued productive cough with clear sputum, dyspnea, hoarseness and chest tightness over the last 5 months. At the last visit, she was started on Breo with significant improvement in symptoms, rarely requiring albuterol. Today she presents to review RAST, awaiting PFT to be scheduled. She denies any visits to urgent care or hospitalizations since the last visit. [facility] Medical History Gallstones Torticollis BPPV (benign paroxysmal positional vertigo) Leukopenia GERD (gastroesophageal reflux disease) Hypovitaminosis D Obese Polyarthralgia Moderate major depression, single episode Dyspepsia Sacroiliitis Myofascial pain syndrome, cervical Cervicalgia Surgical History History of laparoscopic cholecystectomy (~12/08/23) History of cholecystectomy Hx of bilateral breast reduction surgery Hx of tubal ligation History of 2 sections Family History (Updated 07/19/24 @ 11:21 by Kristina Butler MD) Father Diabetes mellitus HTN (hypertension) Mother HTN (hypertension) Social History Household Members: Spouse and Children Housing: House Do you presently have visiting nurse or other home services: No Alcohol intake: former Comment: sleeping soundly Patient Tobacco Use Status: Never used Tobacco e-Cigarette/Vaping Use: Never Used Second Hand Smoke Exposure: No service: No Current occupational status: employed Current occupation: right hand Current occupational exposures/hazards: No Sexual orientation: Straight/Heterosexual Gender identity: Female Cognitive needs: No Hearing needs: No Vision needs: No Female Reproductive History Menstrual Age of Menarche: 14 Review of Systems Const Denies chills, Denies excessive sweating, Denies fever(s), Denies headache(s) and Denies night sweats Eyes Denies dry eyes, Denies irritation and Denies itchy eyes ENT Reports Normal hearing present, Denies headache(s), Denies nasal congestion, Denies nasal discharge, Denies post nasal drip and Denies sore throat Card Denies chest pain, Denies chest pain at rest, Denies chest pain with activity, Denies claudication, Denies leg edema, Denies orthopnea and Denies paroxysmal nocturnal dyspnea Resp Denies chest congestion, Denies excessive phlegm production, Denies pain on inspiration, Denies pain with cough and Denies stridor Musc Denies myalgias Neuro Reports Normal hearing present and Denies headache(s) Endo Denies excessive sweating Adam/Lymph Denies lymphadenopathy Aller/Immun Denies itchy eyes and Denies seasonal rhinorrhea Physical Exam Vital Signs: BMI result Body Mass Index 28.9 Const General: cooperative, healthy appearing, comfortable, no acute distress, well developed and alert Orientation/consciousness: patient oriented x3 Limitations: no limitations HEENT Head: Yes normal to inspection, Yes normocephalic and Yes atraumatic Ears: hearing grossly normal bilaterally and external ears normal Eyes General: appearance normal, both eyes and all related structures Eyelids: Yes eyelids normal Sclerae: sclerae normal EOM: EOMs intact bilaterally Neck Neck: Yes normal visual inspection and Yes no lymphadenopathy Lymphatic: no lymphadenopathy noted Chest Chest palpation & inspection: normal inspection of the chest Resp Effort & Inspection: normal respiratory effort, able to speak in complete sentences, no audible wheezes, no cough, no stridor, not tachypneic, no tripod positioning and no use of accessory muscles Auscultation: clear to auscultation bilaterally Cardio Jugular venous distension: no JVD Rate: regular rate Rhythm: regular rhythm Skin Other: warm, dry General skin exam: no rashes or lesions noted Neuro General: patient oriented x3 Cranial nerves: Yes Normal hearing present Cognition (Neuro): normal cognition Gait exam (Neuro): Normal gait present Extrem General: Yes normal to inspection, Yes capillary refill normal, Yes no clubbing, cyanosis or edema and Yes no pedal edema Psych Appearance: grossly normal and well kempt Speech and movement: Normal speech and movement present and Clear speech present Affect: normal affect Attitude: cooperative Thought process: Normal thought process present Thought content: Normal thought content present Insight: Good insight present (Psych) Judgement: Good judgement present (Psych) Assessment & Plan Assessment & Plan (1) Asthma: Code(s): J45.909 - Unspecified asthma, uncomplicated Category: Medical Plan Reviewed RAST which was negative. At this time Glen reports good control of symptoms on Breo, advised to continue. Will have PFT scheduled upon check out today. All questions were answered and patient is in agreement of plan. Will follow up to review results or sooner if needed. Coding Level of Care Code Est Pt Level 3 (75948) Diagnoses Asthma J45.909
[2024-10-25 09:15] VITALS: PULSE 102; O2SAT 99; BMI 28.9
== END 2024-10-25 09:32 | disposition home or self-care (01) ==
PROVIDERS: PCP Internal Medicine; Visit Provider Nurse Practitioner Family
DX: J45.909 Unspecified asthma, uncomplicated (principal)
CPT/HCPCS: 99213

== ENCOUNTER → 2024-10-25 09:13 | Outpatient (BNVA) | payer OTHER, SELFPAY | PROVIDERS: PCP Internal Medicine; Visit Provider Nurse Practitioner Family | DX: J45.30 Mild persistent asthma, uncomplicated (principal) | CPT/HCPCS: 99212 ==

== ENCOUNTER 2024-11-24 08:48 | Outpatient (REF) | payer OTHER, SELFPAY ==
--- NOTE | 2024-11-24 08:56 | PFT_ITS ---
Indication: Asthma Spirometry [FEV1 to FVC 94%; FEV1 2.51 L; FVC 2.68 L. no significant response to bronchodilators noted.] Lung Volumes [Total lung capacity 92% predicted; residual volume at 34% predicted] Diffusion Capacity [DLCO 103% predicted] Comparisons [none] Interpretation [No obstructive nor restrictive ventilatory defects identified. No significant response to bronchodilators noted. Lung volumes demonstrate significant air trapping. Diffusing capacity within normal limits. If asthma is in the differential a methacholine challenge may be helpful in assessing for hyperreactive airways. Clinical correlation warranted.] MTDD
[2024-11-24 09:34] VITALS: PULSE 73; O2SAT 99
== END 2024-11-24 08:49 | disposition home or self-care (01) ==
LOC: HO.RESP 08:48
PROVIDERS: PCP Internal Medicine; Visit Provider Nurse Practitioner Family
DX: J45.909 Unspecified asthma, uncomplicated (principal)
CPT/HCPCS: 94010; 94640; 94727; 94729

== ENCOUNTER → 2024-11-24 08:56 | Outpatient (BNV) | payer OTHER, SELFPAY | PROVIDERS: PCP Internal Medicine; Visit Provider Hospitalist | DX: J45.909 Unspecified asthma, uncomplicated (principal) | CPT/HCPCS: 94060; 94727; 94729 ==

== ENCOUNTER 2024-12-13 08:50 | Outpatient (AMB) | payer OTHER, SELFPAY ==
--- NOTE | 2024-12-13 07:59 | A.OFFVIS_ITS ---
Vital Signs 12/13/24 08:53 Height 5 ft 1 in Weight 149 lb 14.629 oz BMI 28.3 BP 110/64 Blood Pressure Location Lt brachial Position Sitting Pulse 75 Pulse Source Pulse Oximeter Pulse Oximetry (%) 100 Oxygen Delivery Method Room Air Intake Visit Reasons: Asthma Platform Attendant Required: Yes Platform Attendant Name: Lidya Interlocking And Signal Mechanic: Interlocking And Signal Mechanic offered & declined Accompanied by: Self / Same As Patient Allergies No Known Allergies [No Known Allergies*] Allergy (Verified 12/13/24 08:57) Medication List - Last Reconciled 12/13/24 by Jessica Nixon LPN cholecalciferol (vitamin D3) 25 mcg PO DAILY 90 days cyclobenzaprine 10 mg PO BEDTIME PRN dicyclomine 10 mg PO BID PRN docusate sodium (Colace) 100 mg PO BID fluconazole 150 mg PO Q3D 2 doses fluticasone furoate-vilanterol 100-25 mcg/dose (Breo Ellipta) 1 inh inhalation DAILY ibuprofen 600 mg PO Q6H PRN lidocaine 5% 1 patch topical DAILY PRN pantoprazole 20 mg PO DAILY PRN 90 days Ventolin HFA 90 mcg/actuation (albuterol sulfate) 2 puffs inhalation Q6H PRN 30 days NS HPI HPI Asthma: Details: Glen is a pleasant 39 year old female, never smoker, with underlying asthma, GERD, depression and polyarthralgias. She has been well controlled on Breo 100 mcg, using albuterol infrequently. She denies any sx of thrush. She currently denies any repiratory symptoms. She denies any visits to urgent care or hospitalizations since the last visit. Today she presents to review PFT results. Of note, she does endorse seasonal allergies, controlled with OTC antihis tamines. [facility] Medical History Gallstones Torticollis BPPV (benign paroxysmal positional vertigo) Leukopenia GERD (gastroesophageal reflux disease) Hypovitaminosis D Obese Polyarthralgia Moderate major depression, single episode Dyspepsia Sacroiliitis Myofascial pain syndrome, cervical Cervicalgia Surgical History History of laparoscopic cholecystectomy (~12/08/23) History of cholecystectomy Hx of bilateral breast reduction surgery Hx of tubal ligation History of 2 sections Family History (Updated 07/19/24 @ 11:21 by Kristina Butler MD) Father Diabetes mellitus HTN (hypertension) Mother HTN (hypertension) Social History Household Members: Spouse and Children Housing: House Do you presently have visiting nurse or other home services: No Alcohol intake: former Comment: sleeping soundly Patient Tobacco Use Status: Never used Tobacco e-Cigarette/Vaping Use: Never Used Second Hand Smoke Exposure: No service: No Current occupational status: employed Current occupation: right hand Current occupational exposures/hazards: No Sexual orientation: Straight/Heterosexual Gender identity: Female Cognitive needs: No Hearing needs: No Vision needs: No Female Reproductive History Menstrual Age of Menarche: 14 Review of Systems Const Denies chills, Denies excessive sweating, Denies fever(s), Denies headache(s) and Denies night sweats Eyes Denies dry eyes, Denies irritation and Denies itchy eyes ENT Reports Normal hearing present, Denies headache(s), Denies nasal congestion, Denies nasal discharge, Denies post nasal drip and Denies sore throat Card Denies chest pain, Denies chest pain at rest, Denies chest pain with activity, Denies claudication, Denies leg edema, Denies orthopnea and Denies paroxysmal nocturnal dyspnea Resp Denies chest congestion, Denies excessive phlegm production, Denies pain on inspiration, Denies pain with cough and Denies stridor Musc Denies myalgias Neuro Reports Normal hearing present and Denies headache(s) Endo Denies excessive sweating Adam/Lymph Denies lymphadenopathy Aller/Immun Denies itchy eyes and Denies seasonal rhinorrhea Physical Exam Vital Signs: Last Vital Signs BP 110/64 12/13/24 08:53 BMI result Body Mass Index 28.3 Const General: cooperative, healthy appearing, comfortable, no acute distress, well developed and alert Orientation/consciousness: patient oriented x3 Limitations: no limitations HEENT Head: Yes normal to inspection, Yes normocephalic and Yes atraumatic Ears: hearing grossly normal bilaterally and external ears normal Eyes General: appearance normal, both eyes and all related structures Eyelids: Yes eyelids normal Sclerae: sclerae normal EOM: EOMs intact bilaterally Neck Neck: Yes normal visual inspection and Yes no lymphadenopathy Lymphatic: no lymphadenopathy noted Chest Chest palpation & inspection: normal inspection of the chest Resp Effort & Inspection: normal respiratory effort, able to speak in complete sentences, no audible wheezes, no cough, no stridor, not tachypneic, no tripod positioning and no use of accessory muscles Auscultation: clear to auscultation bilaterally Cardio Jugular venous distension: no JVD Rate: regular rate Rhythm: regular rhythm Skin Other: warm, dry General skin exam: no rashes or lesions noted Neuro General: patient oriented x3 Cranial nerves: Yes Normal hearing present Cognition (Neuro): normal cognition Gait exam (Neuro): Normal gait present Extrem General: Yes normal to inspection, Yes capillary refill normal, Yes no clubbing, cyanosis or edema and Yes no pedal edema Psych Appearance: grossly normal and well kempt Speech and movement: Normal speech and movement present and Clear speech present Affect: normal affect Attitude: cooperative Thought process: Normal thought process present Thought content: Normal thought content present Insight: Good insight present (Psych) Judgement: Good judgement present (Psych) Assessment & Plan Assessment & Plan (1) Asthma: Code(s): J45.909 - Unspecified asthma, uncomplicated Category: Medical Plan Reviewed PFT which revealed no obstructive nor restrictive ventilatory defects identified. No significant response to bronchodilators noted. Lung volumes demonstrate significant air trapping. Diffusing capacity within normal limits. At this time Glen reports good control of symptoms on Breo, advised to continue.She is aware to call office if symptoms worsen with seasonal changes. Refills entered. All questions were answered and patient is in agreement of plan. Will follow up in 6 months or sooner if needed. Medications: Refilled fluticasone furoate-vilanterol 100-25 mcg/dose (Breo Ellipta) 1 inh inhalation DAILY 60 ea 6RF Coding Level of Care Code Est Pt Level 4 (97855) Diagnoses Asthma J45.909
[2024-12-13 08:53] VITALS: BP 110/64; PULSE 75; O2SAT 100; BMI 28.3
== END 2024-12-13 09:07 | disposition home or self-care (01) ==
LOC: HO.HPS 08:50
PROVIDERS: PCP Internal Medicine; Visit Provider Nurse Practitioner Family
DX: J45.909 Unspecified asthma, uncomplicated (principal)
CPT/HCPCS: 99214

== ENCOUNTER → 2024-12-13 08:50 | Outpatient (BNVA) | payer OTHER, SELFPAY | PROVIDERS: PCP Internal Medicine; Visit Provider Nurse Practitioner Family | DX: J45.909 Unspecified asthma, uncomplicated (principal) | CPT/HCPCS: 99212 ==

== ENCOUNTER 2025-01-04 15:53 | Emergency (ER) | payer OTHER, SELFPAY ==
--- NOTE | ~2025-01-04 | XR_ITS ---
CLINICAL HISTORY: [place] pain 3 view left shoulder Comparison: None Findings: No fractures or dislocations. Mild arthritic changes in the acromioclavicular joint. No erosions. No radiopaque foreign body. 1.4 x 0.3 mm ossific density adjacent to the posterior superior humeral head is most likely related to calcific tendinitis. IMPRESSION: 1. No acute fracture or dislocation. 2. Mild arthritic changes. This document has been electronically signed by: Yenny Tabor DO on 01/04/2025 18:51:53
--- NOTE | ~2025-01-04 | CT_ITS ---
CLINICAL HISTORY: left arm weakness, pain CT HEAD WITHOUT CONTRAST Comparison: None Findings: No intra-axial mass, midline shift, hydrocephalus, or acute hemorrhage. No significant atrophy-like change or white matter disease. The visualized paranasal sinuses and mastoid air cells are normal. The orbits are within normal limits. No skull fracture. IMPRESSION: 1. No acute intracranial findings. This document has been electronically signed by: Yenny Tabor DO on 01/04/2025 17:57:26
--- NOTE | ~2025-01-04 | CT_ITS ---
CLINICAL HISTORY: posterior neck pain left arm pain CT CERVICAL SPINE WITHOUT CONTRAST Comparison: None Findings: Vertebral alignment is within normal limits. No significant degenerative change. No large disc herniation or spinal stenosis. No acute fractures or dislocations. Prominent nutrient groove extends transversely across the C3 vertebral body. Visualized intracranial contents are unremarkable. No cervical fluid collections or masses. No consolidation or effusion at the lung apices. IMPRESSION: No acute process or significant degenerative changes. This document has been electronically signed by: Yenny Tabor DO on 01/04/2025 17:51:41
[2025-01-04 15:59] VITALS: BP 131/75; PULSE 88; RESP 18; TEMP 37; O2SAT 100; BMI 25.8
--- NOTE | 2025-01-04 16:13 | ED_ITS ---
HPI - General Adult General Chief complaint: Neck Pain/Injury Stated complaint: Neck pain radiating to L arm Time Seen by Provider: 01/04/25 18:46 History of Present Illness ED Provider: Ravinder Fox MD HPI narrative: This is a 39-year-old healthy female with atraumatic left slightly worsened over the past 2 days. No direct injury or accident. She has felt slightly weak in the deltoid region and some tingling. Never had neck surgery brain surgery no recent falls. Related Data Home Medications ?Medication ?Instructions ?Recorded ?Confirmed cyclobenzaprine 10 mg tablet 10 mg PO BEDTIME PRN muscle spasm 12/07/23 12/13/24 dicyclomine 10 mg capsule 10 mg PO BID PRN Abdominal Pain 12/07/23 12/13/24 lidocaine 5 % topical patch 1 patch topical DAILY PRN Pain 12/07/23 12/13/24 Previous Rx's ?Medication ?Instructions ?Recorded cholecalciferol (vitamin D3) 25 25 mcg PO DAILY 90 days #90 caps 07/25/23 mcg (1,000 unit) capsule ibuprofen 600 mg tablet 600 mg PO Q6H PRN pain #30 tabs 12/08/23 docusate sodium 100 mg capsule 100 mg PO BID #30 caps 12/09/23 (Colace) pantoprazole 20 mg tablet,delayed 20 mg PO DAILY PRN Heartburn 90 12/18/23 release days #90 tabs fluconazole 150 mg tablet 150 mg PO Q3D 2 doses #2 tabs 12/30/23 Ventolin HFA 90 mcg/actuation 2 puff inhalation Q6H PRN 10/12/24 aerosol inhaler (albuterol sulfate) shortness of breath or wheezing 30 days #8 grams fluticasone furoate 100 1 inh inhalation DAILY #60 ea 12/13/24 mcg-vilanterol 25 mcg/dose inhalation powder (Breo Ellipta) methocarbamol 750 mg tablet 750 mg PO TID 4 days #12 tabs 01/04/25 naproxen 500 mg tablet (Naprosyn) 500 mg PO BID 5 days #10 tabs 01/04/25 Allergies Allergy/AdvReac Type Severity Reaction Status Date / Time No Known Allergies Allergy Verified 01/04/25 15:59 [No Known Allergies*] [facility] Past Medical History Medical History Gallstones Torticollis BPPV (benign paroxysmal positional vertigo) Leukopenia GERD (gastroesophageal reflux disease) Hypovitaminosis D Obese Polyarthralgia Moderate major depression, single episode Dyspepsia Sacroiliitis Myofascial pain syndrome, cervical Cervicalgia Surgical History History of laparoscopic cholecystectomy (~12/08/23) History of cholecystectomy Hx of bilateral breast reduction surgery Hx of tubal ligation History of 2 sections Family History Family History (Updated 07/19/24 @ 11:21 by Kristina Butler MD) Father Diabetes mellitus HTN (hypertension) Mother HTN (hypertension) Social History Social History Household Members: Spouse and Children Housing: House Do you presently have visiting nurse or other home services: No Alcohol intake: former Comment: sleeping soundly Patient Tobacco Use Status: Never used Tobacco e-Cigarette/Vaping Use: Never Used Second Hand Smoke Exposure: No Advance Directives: No Advance Directives Information Provided: No service: No Current occupational status: employed Current occupation: right hand Current occupational exposures/hazards: No Sexual orientation: Straight/Heterosexual Gender identity: Female Cognitive needs: No Hearing needs: No Vision needs: No Physical Exam ED Vital Signs: Vital Signs - 24 hr 01/04/25 15:59 01/04/25 18:06 01/04/25 19:35 Temperature 98.6 F 97.6 F 97.6 F Pulse Rate 88 95 95 Respiratory Rate 18 20 20 Blood Pressure 131/75 117/70 117/70 Pulse Oximetry 100 100 100 Oxygen Delivery Method Room Air Room Air Room Air BMI result Body Mass Index 25.8 Const Other: EXAM: Gen: Alert, awake, well appearing, well hydrated. Head: Atraumatic Eyes: Anicteric, Normal conjunctiva. ENT: Moist mucosa, no pallor. ? Neck: With rotating to the left side, palpable spasm along the trapezius and lateral paraspinal musculature. No bruising no crepitus bony tenderness. No JVD or facial plethora MSK: Well-perfused left upper extremity full range of motion 5/5 strength proximal and distally. Intact sensation to light touch. No hyperreflexia normal tone Neuro: Alert. Gross movement of all extremities intact. ? Vital signs: See flowsheet Course Course Course Narrative: RME: 39 year female presents to ED for posterior neck pain radiating down left arm for the past 2 weeks. Patient states posterior neck pain causes her left arm to have pain which caused her to have difficulty in range of motion. She states left arm feel weaker. Patient states it has been going on for the past 2 weeks. Patient denies being on any control pills. Patient has hysterectomy 5:58pm: Patient's cervical spine CT scan normal. Head CT scan normal. Patient evaluated by Dr. White who states pain from left shoulder is causing the weakness not suspecting any carotid large vein occlusion or dissection. Recommends shoulder x-ray Medications Administered Discontinued Medications Generic Name Dose Route Start Last Admin Trade Name Freq PRN Reason Stop Dose Admin Acetaminophen 975 mg 01/04/25 19:08 01/04/25 19:26 Acetaminophen 325 Mg Tablet PO 01/04/25 19:09 975 mg ONCE ONE Administration Lidocaine 1 patch 01/04/25 19:08 01/04/25 19:27 Lidocaine 4 % Patch Adh..Patch TRANSDERMA 01/04/25 19:09 1 patch ONCE ONE Administration Protocol Methocarbamol 750 mg 01/04/25 19:08 01/04/25 19:27 Methocarbamol 750 Mg Tablet PO 01/04/25 19:09 750 mg ONCE ONE Administration Naproxen 500 mg 01/04/25 19:08 01/04/25 19:27 Naproxen 500 Mg Tablet PO 01/04/25 19:09 500 mg ONCE ONE Administration Medical Decision Making Medical Decision Making [facility] Narrative: 39-year-old female with 3 weeks of atraumatic but worsening left neck pain. Clinical examination suggestive of torticollis and/or muscle spasm. No direct blow or injury. No bony tenderness. No motor deficits. Differential considered a muscle spasm, torticollis, strain, less likely shoulder injury or radiculopathy. X-ray of the shoulder ordered prior to my evaluation negative for bony injury or dislocation. CT head and cervical spine ordered prior to my evaluation negative for acute trauma. Plan heat pack multimodal analgesia and discharged home Discharge Plan Discharge Clinical Impression: Acute torticollis Patient Disposition: Home, Self-Care Additional Instructions: DISCHARGE DIAGNOSES: Neck pain likely spasm of the neck muscles HISTORY OF PRESENTATION: ?3 weeks of worsening left neck pain EMERGENCY DEPARTMENT COURSE,TESTS, TREATMENTS: While in the ED today also received a CT of the head and cervical spine and x-ray of the left shoulder all of which were normal with no acute abnormalities found. We feel you likely have a spasm in the left neck muscles DISCHARGE MEDICATIONS: We have prescribed 2 different medications anti-inflammatory and as needed muscle relaxant. Do not drive or operate machinery while on the muscle relaxant as this can make you sleepy. FOLLOW-UP: ?Call your primary or general physician soon as possible to discuss your symptoms, your ED visit and to discuss follow up plans Was needed with your primary doctor INSTRUCTIONS ?& RETURN PRECAUTIONS: If any symptoms change first call your primary physician, if it is after-hours your primary doctors office should have a provider acquisitions assistant you can speak with. If the symptoms are severe or very concerning to you then call 911 or return to the ED. Put a heating pad or hot pack over the left neck/shoulder muscles for 10 minutes at a time and massage afterwards. Rotate in range your head and neck as we disc ussed Ravinder Fox MD Emergency Physician [facility] Prescriptions: New naproxen [Naprosyn] 500 mg tablet 500 mg PO BID 5 Days Qty: 10 0RF methocarbamol 750 mg tablet 750 mg PO TID 4 Days Qty: 12 0RF No Action cholecalciferol (vitamin D3) 25 mcg (1,000 unit) capsule 25 mcg PO DAILY 90 Days Qty: 90 1RF albuterol sulfate [Ventolin HFA] 90 mcg/actuation HFA aerosol inhaler 2 puff inhalation Q6H PRN (Reason: shortness of breath or wheezing) 30 Days Qty: 8 0RF dicyclomine 10 mg capsule 10 mg PO BID PRN (Reason: Abdominal Pain) cyclobenzaprine 10 mg tablet 10 mg PO BEDTIME PRN (Reason: muscle spasm) lidocaine 5 % adhesive patch,medicated 1 patch topical DAILY PRN (Reason: Pain) ibuprofen 600 mg tablet 600 mg PO Q6H PRN (Reason: pain) Qty: 30 0RF docusate sodium [Colace] 100 mg capsule 100 mg PO BID Qty: 30 0RF pantoprazole 20 mg tablet,delayed release (DR/EC) 20 mg PO DAILY PRN (Reason: Heartburn) 90 Days Qty: 90 1RF fluconazole 150 mg tablet 150 mg PO Q3D 0 Days Qty: 2 1RF Rx Instructions: may repeat second dose 72 hrs after first dose if symptoms persist fluticasone furoate-vilanterol [Breo Ellipta] 100-25 mcg/dose blister with device 1 inh inhalation DAILY Qty: 60 6RF Interventions: ED Discharge Assessment Last Done: 01/04/25 19:35 Discharge Date/Time: 01/04/25 19:35 Print Language: Romanian
[2025-01-04 18:06] VITALS: BP 117/70; PULSE 95; RESP 20; TEMP 36.4; O2SAT 100
--- NOTE | 2025-01-04 18:11 | PC.NURSE ---
Provider andreia SILVERMAN wanted charge nurse aware pt needs a CTA at this time, this RN did alert charge nurse, pt aware to not leave until we can get her back at this time to get further imaging
[2025-01-04] MEDS: Acetaminophen 325 MG TABLET 975 MG PO (19:26)
[2025-01-04] MEDS: methocarbamoL 750 MG TABLET PO (19:27)
[2025-01-04] MEDS: NaPROXEN 500 MG TABLET PO (19:27)
[2025-01-04] MEDS: Lidocaine 4 % Patch ADH..PATCH 1 PATCH TRANSDERMA (19:27)
[2025-01-04 19:35] VITALS: BP 117/70; PULSE 95; RESP 20; TEMP 36.4; O2SAT 100
== END 2025-01-04 19:35 | disposition home or self-care (01) ==
PROVIDERS: Emergency Provider Emergency Medicine; PCP Internal Medicine
DX: M43.6 Torticollis (principal); M54.2 Cervicalgia
CPT/HCPCS: 70450; 72125; 73030; 99283; 99284

== ENCOUNTER → 2025-01-04 16:10 | Outpatient (BNV) | payer OTHER, SELFPAY | PROVIDERS: PCP Internal Medicine; Visit Provider Radiology Diagnostic Radiology | DX: M54.2 Cervicalgia (principal); R53.1 Weakness; M25.512 Pain in left shoulder | CPT/HCPCS: 70450; 72125; 73030 ==